=== PATIENT | male | born 1965 | race African-American/Black ===

== ENCOUNTER 2022-07-28 14:03 | Inpatient (IN) | payer OTHER ==
[2022-07-28 14:16] VITALS: BMI 27.9
[2022-07-28] MEDS ORDERED: ACETAMINOPHEN 1000 MG/100 ML BAG IVPB ONE (15:33)
[2022-07-28] MEDS ORDERED: SODIUM CHLORIDE 0.9% 500 ML INFUS.BAG IV ONE ×2 (15:33→17:56)
[2022-07-28] MEDS ORDERED: ACETAMINOPHEN INJECTION 100 ML IVPB ONE (16:15)
[2022-07-28 16:30] LABS: BASO % 0.4 % (0-2.0); EOS % 2.5 % (0-4.5); HEMATOCRIT 36.7 % (35.4-49); LYMPH % 40.6 % (8-40); MCH 26.9 pg (25.7-33.7); MCHC 32.7 g/dl (32.0-35.9); MEAN CELL VOLUME 82.2 fl (80-96); MEAN PLT VOLUME 7.5 fl (7.5-11.1); MONO % 5.6 % (3.8-10.2); NEUT % 50.9 % (42.8-82.8); PLATELET COUNT 304 10^3/uL (134-434); RBC 4.46 M/mm3 (4.00-5.60); WHITE BLOOD COUNT 7.8 K/mm3 (4.0-10.0)
[2022-07-28 16:34] LABS: VENOUS BASE EXCESS -2.7 mmol/L (-2-2); VENOUS O2 SATURATION 52.7 % (70-80); VENOUS PCO2 45.1 mmHg (38-52); VENOUS PH 7.331 (7.310-7.410)
[2022-07-28 16:38] LABS: INR 1.1 (0.83-1.09); PROTHROMBIN TIME (PATIENT) 12.8 SEC (9.7-13.0)
[2022-07-28 16:41] LABS: ACTIVATED PTT 52.4 SECONDS (25.2-36.5)
[2022-07-28 16:53] LABS: CALCIUM 9.2 mg/dL (8.5-10.1)
[2022-07-28 16:54] LABS: ALBUMIN 2.4 g/dl (3.4-5.0); BLOOD UREA NITROGEN 34.6 mg/dL (7-18)
[2022-07-28 16:57] LABS: CREATININE 2.2 mg/dL (0.55-1.3)
[2022-07-28 16:58] LABS: BILIRUBIN,TOTAL 0.4 mg/dL (0.2-1); TOT PROT 6.1 g/dl (6.4-8.2)
[2022-07-28 17:11] LABS: PH,URINE 6.5 (5.0-8.0); URINE APPEARANCE TURBID; URINE BILIRUBIN NEGATIVE (NEGATIVE); URINE COLOR YELLOW; URINE GLUCOSE (UA) NEGATIVE (NEGATIVE); URINE KETONE NEGATIVE (NEGATIVE); URINE LEUK ESTERASE 3+ (NEGATIVE); URINE NITRITE NEGATIVE (NEGATIVE); URINE PROTEIN 3+ (NEGATIVE); URINE UROBILINOGEN 0.2 mg/dL (0.2-1.0)
[2022-07-28 17:50] LABS: EPI CELLS 150.3 /uL (0-25.1); HYALINE CASTS 891.05 /uL (0-3.1); URINE BACTERIA 4341.9 /uL (0-1359); URINE WBC 25405 /uL (0-25.8)
[2022-07-28 17:51] LABS: URINE RBC 170.7 /uL (0-23.9)
[2022-07-28] MEDS ORDERED: CEFTRIAXONE 1,000 MG in DEXTROSE 5%-WATER - 50 ML IVPB ONE (17:54)
[2022-07-28] MEDS ORDERED: CEFTRIAXONE 1 GM/50 ML BAG ONE (18:06)
[2022-07-28] MEDS ORDERED: VANCOMYCIN 1 GM in D5W (PRE-DOCKED) 1,000 MG/250 ML IVPB ONE (20:07)
[2022-07-28] MEDS ORDERED: VANCOMYCIN/WATER FOR INJ (PEG) 1,000 MG/200 ML BAG IVPB ONE (20:14)
[2022-07-28] MEDS ORDERED: ACETAMINOPHEN NR PRN (22:45)
[2022-07-28] MEDS ORDERED: [UNRECOGNIZED DRUG - OTHER] NR PRN (22:45)
[2022-07-28] MEDS ORDERED: TRAMADOL NR PRN (22:45)
[2022-07-28] MEDS ORDERED: traMADol HCL 50 MG TABLET PO ONE (22:55)
[2022-07-28] MEDS ORDERED: traMADol HCL 50 MG TABLET ONE (22:56)
[2022-07-28] MEDS ORDERED: MEROPENEM 1 GM in DEXTROSE 5%-WATER 100 ML IVPB SCH (23:00)
[2022-07-28] MEDS: POLYETHYLENE GLYCOL (HEALTHYLAX) 3350 17 GM PACKET PO SCH (23:13)
[2022-07-29] MEDS ORDERED: MEROPENEM 1 GM VIAL (RESTRICTED TO ID) IVPB ONE (04:05)
[2022-07-29] MEDS: MEROPENEM 1 GM in DEXTROSE 5%-WATER 100 ML IVPB SCH ×2 (04:13→10:51)
[2022-07-29 06:14] LABS: BASO % 0.4 % (0-2.0); EOS % 2.4 % (0-4.5); HEMATOCRIT 32.9 % (35.4-49); HEMOGLOBIN 10.5 GM/dL (11.7-16.9); MCH 26.4 pg (25.7-33.7); MCHC 31.9 g/dl (32.0-35.9); MEAN CELL VOLUME 82.7 fl (80-96); MONO % 4.4 % (3.8-10.2); NEUT % 66.8 % (42.8-82.8); PLATELET COUNT 260 10^3/uL (134-434); RBC 3.98 M/mm3 (4.00-5.60); RDW 18.1 % (11.9-15.9); WHITE BLOOD COUNT 7.6 K/mm3 (4.0-10.0)
[2022-07-29] MEDS ORDERED: POLYETHYLENE GLYCOL (HEALTHYLAX) 3350 17 GM PACKET ONE (06:15)
[2022-07-29] MEDS ORDERED: HEPARIN NA (PORCINE) 5,000 UNITS/ML 1ML VIAL ONE (06:15)
[2022-07-29] MEDS ORDERED: traMADol HCL 50 MG TABLET ONE (06:15)
[2022-07-29] MEDS: POLYETHYLENE GLYCOL (HEALTHYLAX) 3350 17 GM PACKET PO SCH ×3 (06:25→22:31)
[2022-07-29] MEDS: traMADol HCL 50 MG TABLET PO PRN ×3 (06:25→23:20)
[2022-07-29] MEDS: HEPARIN NA (PORCINE) 5,000 UNITS/ML 1ML VIAL SQ SCH ×3 (06:25→22:31)
[2022-07-29 06:35] LABS: BLOOD UREA NITROGEN 32.7 mg/dL (7-18); CALCIUM 8.3 mg/dL (8.5-10.1); MAGNESIUM 1.8 mg/dL (1.8-2.4)
[2022-07-29 06:38] LABS: PHOSPHOROUS 3.4 mg/dL (2.5-4.9)
[2022-07-29 06:40] LABS: BILIRUBIN,TOTAL 0.4 mg/dL (0.2-1); TOT PROT 5.1 g/dl (6.4-8.2)
[2022-07-29] MEDS ORDERED: TAMSULOSIN HCL 0.4 MG CAP ONE (07:18)
[2022-07-29] MEDS: TAMSULOSIN HCL 0.4 MG CAP PO SCH (07:33)
[2022-07-29] MEDS: INSULIN (NOVOLOG) ASPART 100 UNITS/ML 10ML VIAL SQ SCH ×4 (07:33→22:31)
[2022-07-29] MEDS: PANTOPRAZOLE 40 MG TABLET PO SCH (10:52)
[2022-07-29 11:12] VITALS: RESP 18
[2022-07-29] MEDS: SILVER SULFADIAZINE 1% TOP CREAM 400 GM JAR TP SCH (13:19)
[2022-07-29] MEDS: CEFEPIME 1 GM in DEXTROSE 5%-WATER 100 ML IVPB SCH ×2 (15:11→22:40)
[2022-07-29] MEDS ORDERED: PATIENT'S OWN MEDICATION (NON-FORMULARY) (Melatonin [Melatonin] 6 MG) PO SCH (22:00)
[2022-07-29] MEDS: MELATONIN 5 MG, MELATONIN 1 MG PO SCH (22:31)
[2022-07-30] MEDS ORDERED: ACETAMINOPHEN 325 MG TABLET (FP) PO ONE (02:25)
[2022-07-30] MEDS: INSULIN (NOVOLOG) ASPART 100 UNITS/ML 10ML VIAL SQ SCH ×4 (06:21→21:06)
[2022-07-30] MEDS: HEPARIN NA (PORCINE) 5,000 UNITS/ML 1ML VIAL SQ SCH ×3 (06:21→20:59)
[2022-07-30] MEDS: POLYETHYLENE GLYCOL (HEALTHYLAX) 3350 17 GM PACKET PO SCH ×4 (06:21→21:07)
[2022-07-30] MEDS: traMADol HCL 50 MG TABLET PO PRN ×2 (06:21→13:53)
[2022-07-30] MEDS: CEFEPIME 1 GM in DEXTROSE 5%-WATER 100 ML IVPB SCH (09:19)
[2022-07-30] MEDS: TAMSULOSIN HCL 0.4 MG CAP PO SCH (09:19)
[2022-07-30] MEDS: PANTOPRAZOLE 40 MG TABLET PO SCH (09:19)
[2022-07-30] MEDS: SILVER SULFADIAZINE 1% TOP CREAM 400 GM JAR TP SCH (09:19)
[2022-07-30] MEDS: MELATONIN 5 MG, MELATONIN 1 MG PO SCH (20:59)
[2022-07-30] MEDS: SENNOSIDES 8.6MG TABLET (FP) PO SCH ×2 (21:01→21:07)
[2022-07-30] MEDS: CEPHALEXIN MONOHYDRATE 500 MG CAPSULE (UD) PO SCH (22:33)
[2022-07-31] MEDS: POLYETHYLENE GLYCOL (HEALTHYLAX) 3350 17 GM PACKET PO SCH ×2 (05:59→13:54)
[2022-07-31] MEDS: HEPARIN NA (PORCINE) 5,000 UNITS/ML 1ML VIAL SQ SCH ×2 (05:59→13:54)
[2022-07-31] MEDS: traMADol HCL 50 MG TABLET PO PRN ×2 (06:00→13:57)
[2022-07-31] MEDS: INSULIN (NOVOLOG) ASPART 100 UNITS/ML 10ML VIAL SQ SCH ×3 (06:26→17:23)
[2022-07-31] MEDS: PANTOPRAZOLE 40 MG TABLET PO SCH (09:26)
[2022-07-31] MEDS: CEPHALEXIN MONOHYDRATE 500 MG CAPSULE (UD) PO SCH (09:26)
[2022-07-31] MEDS: TAMSULOSIN HCL 0.4 MG CAP PO SCH (09:26)
[2022-07-31] MEDS: SENNOSIDES 8.6MG TABLET (FP) PO SCH (09:27)
[2022-07-31] MEDS: SILVER SULFADIAZINE 1% TOP CREAM 400 GM JAR TP SCH (09:28)
[2022-07-31] MEDS ORDERED: MULTIVITAMINS (DAILY MVI) TABLET (FP) PO SCH (10:00)
[2022-07-31] MEDS ORDERED: ACETAMINOPHEN 325 MG TABLET (FP) PO ONE (12:33)
[2022-07-31 14:48] VITALS: BP 115/77; PULSE 85; TEMP 98.4
== END 2022-07-31 18:34 | DRG 463 ==
LOC: JER 14:03 → JERBED 21:53 → J6S 07-29 08:53
PROVIDERS: ADMIT Internal Medicine; ATTEND Internal Medicine
DX: N39.0 Urinary tract infection, site not specified (principal); E11.69 Type 2 diabetes mellitus with other specified complication; L89.202 Pressure ulcer of unspecified hip, stage 2; M86.60 Other chronic osteomyelitis, unspecified site; N13.30 Unspecified hydronephrosis; L89.322 Pressure ulcer of left buttock, stage 2; Z89.619 Acquired absence of unspecified leg above knee; F17.210 Nicotine dependence, cigarettes, uncomplicated; N40.0 Benign prostatic hyperplasia without lower urinary tract symptoms; B96.20 Unspecified Escherichia coli [E. coli] as the cause of diseases classified elsewhere
CPT/HCPCS: 36415; 74176-TC; 76775-TC; 76937; 80053; 81003; 82550; 82803; 82962; 83036; 83605; 83735; 84100; 84443; 85025; 85610; 85730; 86140; 86850; 86900; 86901; 87040; 87086; 87186; 93005; 93010; 99285-25; C9803-CS; J1644; U0003; U0005

== ENCOUNTER 2022-10-05 18:46 | Inpatient (IN) | payer OTHER ==
[2022-10-05 19:03] VITALS: BMI 28.7
[2022-10-05] MEDS ORDERED: ACETAMINOPHEN 1000 MG/100 ML BAG IVPB ONE (19:29)
[2022-10-05] MEDS ORDERED: ACETAMINOPHEN INJECTION 100 ML IVPB ONE (20:15)
[2022-10-05] MEDS ORDERED: SODIUM CHLORIDE 0.9% 500 ML INFUS.BAG IV ONE (20:42)
[2022-10-05 21:07] LABS: HEMATOCRIT 39.5 % (35.4-49); HEMOGLOBIN 13.1 GM/dL (11.7-16.9); MCH 27.5 pg (25.7-33.7); MCHC 33.2 g/dl (32.0-35.9); MEAN CELL VOLUME 82.8 fl (80-96); MEAN PLT VOLUME 7.8 fl (7.5-11.1); PLATELET COUNT 295 10^3/uL (134-434); RBC 4.77 M/mm3 (4.00-5.60); RDW 17.3 % (11.9-15.9); WHITE BLOOD COUNT 11.3 K/mm3 (4.0-10.0)
[2022-10-05 21:30] LABS: CALCIUM 8.8 mg/dL (8.5-10.1)
[2022-10-05 21:31] LABS: ALBUMIN 2.6 g/dl (3.4-5.0); BLOOD UREA NITROGEN 28.8 mg/dL (7-18); MAGNESIUM 2.1 mg/dL (1.8-2.4)
[2022-10-05 21:34] LABS: CREATININE 1.9 mg/dL (0.55-1.3)
[2022-10-05 21:35] LABS: BILIRUBIN,TOTAL 0.4 mg/dL (0.2-1); TOT PROT 6.6 g/dl (6.4-8.2)
[2022-10-06] MEDS ORDERED: morphine CARPU-JECT 4 MG/1 ML DISP.SYRIN IVPUSH ONE
[2022-10-06] MEDS ORDERED: METOPROLOL TARTRATE 5 MG/5 ML VIAL IVPUSH PRN (00:09)
[2022-10-06] MEDS ORDERED: PANTOPRAZOLE SODIUM 40 MG VIAL IVPUSH ONE (00:10)
[2022-10-06] MEDS ORDERED: LORazepam 2 MG/ML SDV VIAL IVPUSH PRN (00:13)
[2022-10-06] MEDS ORDERED: DEXTROSE 5%-0.45% SALINE 1,000 ML IV SCH ×2 (00:15)
[2022-10-06] MEDS ORDERED: morphine SULFATE 4 MG/ML VIAL ONE (00:21)
[2022-10-06] MEDS: INSULIN SLIDING SCALE (NOVOLOG) 1 VIAL SQ SCH ×2 (01:01→07:45)
[2022-10-06] MEDS ORDERED: HEPARIN NA (PORCINE) 5,000 UNITS/ML 1ML VIAL SQ SCH (06:00)
[2022-10-06] MEDS ORDERED: HEPARIN NA (PORCINE) 5,000 UNITS/ML 1ML VIAL ONE (06:06)
[2022-10-06 06:47] LABS: BASO % 0.3 % (0-2.0); EOS % 1.9 % (0-4.5); HEMATOCRIT 33.8 % (35.4-49); HEMOGLOBIN 11.3 GM/dL (11.7-16.9); LYMPH % 32.4 % (8-40); MCH 27.8 pg (25.7-33.7); MCHC 33.4 g/dl (32.0-35.9); MEAN CELL VOLUME 83.2 fl (80-96); MONO % 8.7 % (3.8-10.2); NEUT % 56.7 % (42.8-82.8); PLATELET COUNT 212 10^3/uL (134-434); RBC 4.06 M/mm3 (4.00-5.60); RDW 16.7 % (11.9-15.9); WHITE BLOOD COUNT 8.2 K/mm3 (4.0-10.0)
[2022-10-06 07:05] LABS: CALCIUM 8.4 mg/dL (8.5-10.1)
[2022-10-06 07:06] LABS: ALBUMIN 2.1 g/dl (3.4-5.0); BLOOD UREA NITROGEN 25.2 mg/dL (7-18)
[2022-10-06 07:09] LABS: CREATININE 1.7 mg/dL (0.55-1.3)
[2022-10-06 07:10] LABS: TOT PROT 5.2 g/dl (6.4-8.2)
[2022-10-06 07:11] LABS: BILIRUBIN,TOTAL 0.4 mg/dL (0.2-1)
[2022-10-06 08:18] LABS: EPI CELLS >36 /uL (0-25.1); HYALINE CASTS 104 /uL (0-3.1); PH,URINE 5.5 (5.0-8.0); URINE APPEARANCE TURBID; URINE BACTERIA 2363 /uL (0-1359); URINE BILIRUBIN NEGATIVE (NEGATIVE); URINE COLOR YELLOW; URINE GLUCOSE (UA) NEGATIVE (NEGATIVE); URINE KETONE NEGATIVE (NEGATIVE); URINE LEUK ESTERASE 3+ (NEGATIVE); URINE NITRITE NEGATIVE (NEGATIVE); URINE PROTEIN 2+ (NEGATIVE); URINE UROBILINOGEN 0.2 mg/dL (0.2-1.0); URINE WBC 30358 /uL (0-25.8)
[2022-10-06] MEDS ORDERED: PANTOPRAZOLE SODIUM 40 MG VIAL IVPUSH SCH (10:00)
[2022-10-06 10:50] LABS: URINE RBC 616.5 /uL (0-23.9); YEAST NO SEEN (NEGATIVE)
[2022-10-06] MEDS ORDERED: Methylnaltrexone Bromide 12 MG/0.6 ML KIT SQ SCH (12:36)
[2022-10-06] MEDS ORDERED: PANTOPRAZOLE SODIUM 40 MG/100 ML BAG IVPB ONE (14:56)
[2022-10-06 17:18] VITALS: BP 112/68; PULSE 74; RESP 16; TEMP 98.9
== END 2022-10-06 07:28 | disposition short-term general hospital (02) | DRG 282 ==
LOC: JER 18:46 → JERBED 10-06 → OBSVTOIN 10-06 00:08
PROVIDERS: ADMIT Internal Medicine; ATTEND Internal Medicine
DX: K86.89 Other specified diseases of pancreas (principal); N17.9 Acute kidney failure, unspecified; N13.30 Unspecified hydronephrosis; E87.5 Hyperkalemia; K80.20 Calculus of gallbladder without cholecystitis without obstruction; K86.1 Other chronic pancreatitis; E11.9 Type 2 diabetes mellitus without complications; I10 Essential (primary) hypertension; I45.10 Unspecified right bundle-branch block; N32.0 Bladder-neck obstruction; Z79.4 Long term (current) use of insulin
CPT/HCPCS: 0241U-QW; 36415; 71045-TC-FY; 74177-TC; 80053; 81003; 82962; 82977; 83605; 83690; 83735; 84484; 85025; 85027; 87086; 87186; 93005; 93010; 99285-25; G0378; J1644; Q9967

== ENCOUNTER 2022-11-23 21:24 | Observation (INO) | payer OTHER ==
[2022-11-23] MEDS ORDERED: SODIUM CHLORIDE 0.9% 1000 ML INFUS.BAG IV ONE (21:53)
[2022-11-23 23:50] LABS: BASO % 0.4 % (0-2.0); HEMATOCRIT 32.2 % (35.4-49); HEMOGLOBIN 10.5 GM/dL (11.7-16.9); LYMPH % 40.4 % (8-40); MCH 27.1 pg (25.7-33.7); MCHC 32.7 g/dl (32.0-35.9); MEAN CELL VOLUME 82.9 fl (80-96); MEAN PLT VOLUME 7.7 fl (7.5-11.1); MONO % 6.9 % (3.8-10.2); NEUT % 49.3 % (42.8-82.8); PLATELET COUNT 156 10^3/uL (134-434); RBC 3.88 M/mm3 (4.00-5.60); RDW 15.8 % (11.9-15.9); WHITE BLOOD COUNT 7.7 K/mm3 (4.0-10.0)
[2022-11-24 00:20] LABS: CALCIUM 8.7 mg/dL (8.5-10.1)
[2022-11-24 00:21] LABS: ALBUMIN 2.3 g/dl (3.4-5.0); BLOOD UREA NITROGEN 50.9 mg/dL (7-18)
[2022-11-24 00:24] LABS: CREATININE 2.2 mg/dL (0.55-1.3)
[2022-11-24 00:26] LABS: BILIRUBIN,TOTAL 0.3 mg/dL (0.2-1); TOT PROT 5.7 g/dl (6.4-8.2)
[2022-11-24] MEDS ORDERED: POLYETHYLENE GLYCOL (HEALTHYLAX) 3350 17 GM PACKET ONE (00:37)
[2022-11-24] MEDS ORDERED: POLYETHYLENE GLYCOL (HEALTHYLAX) 3350 17 GM PACKET PO ONE (01:00)
[2022-11-24] MEDS ORDERED: POLYETHYLENE GLYCOL (HEALTHYLAX) 3350 17 GM PACKET PO SCH (01:00)
[2022-11-24] MEDS ORDERED: traMADol HCL 50 MG TABLET PO PRN (03:01)
[2022-11-24] MEDS ORDERED: traMADol HCL 50 MG TABLET ONE (03:33)
[2022-11-24] MEDS: traMADol HCL 50 MG TABLET PO PRN ×3 (03:37→19:07)
[2022-11-24] MEDS: POLYETHYLENE GLYCOL (HEALTHYLAX) 3350 17 GM PACKET PO SCH ×3 (06:21→21:27)
[2022-11-24] MEDS: SEVELAMER CARBONATE 800 MG TAB (FP) PO SCH ×4 (08:50→17:47)
[2022-11-24] MEDS: TAMSULOSIN HCL 0.4 MG CAP PO SCH ×2 (08:50→08:53)
[2022-11-24] MEDS: FLUoxetine HCL 10 MG CAPSULE PO SCH (10:33)
[2022-11-24] MEDS: AMIODARONE HCL 200 MG TABLET PO SCH (10:33)
[2022-11-24] MEDS: METOPROLOL TARTRATE 25 MG TABLET (FP) PO SCH ×2 (10:34→21:26)
[2022-11-24] MEDS: DOCUSATE SODIUM 100 MG CAPSULE (FP) PO SCH ×2 (10:34→21:25)
[2022-11-24] MEDS: APIXABAN 5 MG TABLET PO SCH ×2 (10:34→21:26)
[2022-11-24] MEDS: PANTOPRAZOLE 40 MG TABLET PO SCH (10:34)
[2022-11-24] MEDS ORDERED: INSULIN (NOVOLOG) ASPART 100 UNITS/ML 10ML VIAL SQ ONE (11:36)
[2022-11-24] MEDS ORDERED: INSULIN (NOVOLOG) ASPART 100 UNITS/ML 10ML VIAL ONE ×2 (11:55→16:45)
[2022-11-24] MEDS ORDERED: INSULIN REGULAR HUMAN 100 UNITS/ML *VIAL IVPUSH ONE (12:00)
[2022-11-24] MEDS ORDERED: INSULIN REGULAR HUMAN 100 UNITS/ML *VIAL SQ ONE (12:30)
[2022-11-24] MEDS: INSULIN SLIDING SCALE (NOVOLOG) 1 VIAL SQ SCH (16:41)
[2022-11-24] MEDS: INSULIN (LEVEMIR) 100 UNITS/ML UNITS SQ SCH (16:47)
[2022-11-24] MEDS: SODIUM BICARBONATE 650 MG TABLET PO SCH (21:26)
[2022-11-24] MEDS: ROSUVASTATIN CA 20 MG TABLET PO SCH (21:26)
[2022-11-24] MEDS ORDERED: INSULIN (LEVEMIR) 100 UNITS/ML UNITS SQ SCH (22:00)
[2022-11-24] MEDS ORDERED: QUEtiapine FUMARATE 50 MG TABLET PO SCH (22:00)
[2022-11-25] MEDS: INSULIN (LEVEMIR) 100 UNITS/ML UNITS SQ SCH ×6 (01:35→21:58)
[2022-11-25] MEDS: traMADol HCL 50 MG TABLET PO PRN ×3 (02:50→18:35)
[2022-11-25] MEDS: POLYETHYLENE GLYCOL (HEALTHYLAX) 3350 17 GM PACKET PO SCH ×3 (06:46→21:18)
[2022-11-25] MEDS: INSULIN SLIDING SCALE (NOVOLOG) 1 VIAL SQ SCH ×3 (07:10→16:33)
[2022-11-25] MEDS: TAMSULOSIN HCL 0.4 MG CAP PO SCH (08:26)
[2022-11-25] MEDS: SEVELAMER CARBONATE 800 MG TAB (FP) PO SCH ×3 (08:26→17:29)
[2022-11-25] MEDS: METOPROLOL TARTRATE 25 MG TABLET (FP) PO SCH ×2 (10:30→21:17)
[2022-11-25] MEDS: FLUoxetine HCL 10 MG CAPSULE PO SCH (10:30)
[2022-11-25] MEDS: AMIODARONE HCL 200 MG TABLET PO SCH (10:31)
[2022-11-25] MEDS: DOCUSATE SODIUM 100 MG CAPSULE (FP) PO SCH ×2 (10:31→21:16)
[2022-11-25] MEDS: APIXABAN 5 MG TABLET PO SCH ×2 (10:31→21:17)
[2022-11-25] MEDS: SODIUM BICARBONATE 650 MG TABLET PO SCH ×2 (10:31→21:17)
[2022-11-25] MEDS: PANTOPRAZOLE 40 MG TABLET PO SCH (10:31)
[2022-11-25] MEDS ORDERED: INSULIN (NOVOLOG) ASPART 100 UNITS/ML 10ML VIAL ONE ×2 (11:13→16:38)
[2022-11-25 12:28] VITALS: BMI 29.2
[2022-11-25] MEDS: ROSUVASTATIN CA 20 MG TABLET PO SCH (21:16)
[2022-11-25] MEDS ORDERED: MELATONIN 5 MG TABLETS PO SCH (22:00)
[2022-11-26] MEDS: traMADol HCL 50 MG TABLET PO PRN ×3 (02:54→18:41)
[2022-11-26] MEDS: POLYETHYLENE GLYCOL (HEALTHYLAX) 3350 17 GM PACKET PO SCH ×2 (05:41→13:09)
[2022-11-26] MEDS: INSULIN SLIDING SCALE (NOVOLOG) 1 VIAL SQ SCH ×3 (06:09→16:36)
[2022-11-26] MEDS: INSULIN (LEVEMIR) 100 UNITS/ML UNITS SQ SCH (08:13)
[2022-11-26] MEDS: SEVELAMER CARBONATE 800 MG TAB (FP) PO SCH ×3 (08:15→17:35)
[2022-11-26] MEDS: TAMSULOSIN HCL 0.4 MG CAP PO SCH (08:22)
[2022-11-26 09:17] VITALS: RESP 18
[2022-11-26] MEDS ORDERED: MULTIVITAMINS (DAILY MVI) TABLET (FP) PO SCH (10:00)
[2022-11-26] MEDS ORDERED: ARIPiprazole 10 MG TABLET PO SCH (10:00)
[2022-11-26] MEDS ORDERED: ASCORBIC ACID 500 MG TABLET (FP) PO SCH (10:00)
[2022-11-26] MEDS ORDERED: ZINC SULFATE 220 MG CAPSULE (FP) PO SCH (10:00)
[2022-11-26] MEDS: DOCUSATE SODIUM 100 MG CAPSULE (FP) PO SCH (10:13)
[2022-11-26] MEDS: APIXABAN 5 MG TABLET PO SCH (10:13)
[2022-11-26] MEDS: AMIODARONE HCL 200 MG TABLET PO SCH (10:13)
[2022-11-26] MEDS: METOPROLOL TARTRATE 25 MG TABLET (FP) PO SCH (10:14)
[2022-11-26] MEDS: PANTOPRAZOLE 40 MG TABLET PO SCH (10:14)
[2022-11-26] MEDS: SODIUM BICARBONATE 650 MG TABLET PO SCH (10:15)
[2022-11-26 22:03] VITALS: BP 131/81; PULSE 68; TEMP 98.4
== END 2022-11-27 07:03 | disposition short-term general hospital (02) ==
LOC: JER 21:24 → JERBED 11-24 01:12 → J7W 11-24 05:16
PROVIDERS: ADMIT Internal Medicine; ATTEND Internal Medicine
PROC: 3E013VG Introduction of Insulin into Subcutaneous Tissue, Percutaneous Approach (ICD-10-PCS; principal; 2022-11-24)
DX: K59.00 Constipation, unspecified (principal); I48.91 Unspecified atrial fibrillation; N17.9 Acute kidney failure, unspecified; E11.22 Type 2 diabetes mellitus with diabetic chronic kidney disease; I12.9 Hypertensive chronic kidney disease with stage 1 through stage 4 chronic kidney disease, or unspecified chronic kidney disease; N18.9 Chronic kidney disease, unspecified; N40.0 Benign prostatic hyperplasia without lower urinary tract symptoms; F25.9 Schizoaffective disorder, unspecified; Z79.01 Long term (current) use of anticoagulants; Z88.0 Allergy status to penicillin; Z91.018 Allergy to other foods; Z89.611 Acquired absence of right leg above knee; Z89.512 Acquired absence of left leg below knee; N13.30 Unspecified hydronephrosis; D64.9 Anemia, unspecified; M41.9 Scoliosis, unspecified; Z72.0 Tobacco use; I25.10 Atherosclerotic heart disease of native coronary artery without angina pectoris; I11.9 Hypertensive heart disease without heart failure
CPT/HCPCS: 36415; 74190-TC-FY; 80053; 82962; 83690; 85025; 87635; 93005; 93010; 96372; 99285-25; G0378

== ENCOUNTER 2022-11-27 18:45 | Inpatient (IN) | payer OTHER ==
[2022-11-27] MEDS ORDERED: HALOPERIDOL LACTATE 5 MG/ML IM ONE ×2 (19:10→22:02)
[2022-11-27] MEDS ORDERED: INSULIN REGULAR HUMAN 100 UNITS/ML *VIAL SQ ONE (19:35)
[2022-11-27 19:54] LABS: BASO % 0.4 % (0-2.0); EOS % 2.9 % (0-4.5); HEMATOCRIT 34.4 % (35.4-49); HEMOGLOBIN 10.9 GM/dL (11.7-16.9); MCH 27.2 pg (25.7-33.7); MCHC 31.7 g/dl (32.0-35.9); MEAN CELL VOLUME 85.7 fl (80-96); MEAN PLT VOLUME 8.4 fl (7.5-11.1); MONO % 6.9 % (3.8-10.2); NEUT % 64.8 % (42.8-82.8); PLATELET COUNT 189 10^3/uL (134-434); RBC 4.02 M/mm3 (4.00-5.60); RDW 15.5 % (11.9-15.9); WHITE BLOOD COUNT 6.9 K/mm3 (4.0-10.0)
[2022-11-27 19:58] LABS: VENOUS BASE EXCESS -7.6 mmol/L (-2-2); VENOUS O2 SATURATION 33.6 % (70-80); VENOUS PCO2 46.8 mmHg (38-52); VENOUS PH 7.24 (7.310-7.410)
[2022-11-27 20:02] LABS: INR 1.68 (0.83-1.09); PROTHROMBIN TIME (PATIENT) 19.4 SEC (9.7-13.0)
[2022-11-27 20:04] LABS: ACTIVATED PTT 48.1 SECONDS (25.2-36.5)
[2022-11-27 20:12] LABS: CHLORIDE 106 mmol/L (98-107); POTASSIUM 5.3 mmol/L (3.5-5.1); SODIUM 137 mmol/L (136-145)
[2022-11-27 20:14] LABS: CALCIUM 8.7 mg/dL (8.5-10.1)
[2022-11-27 20:16] LABS: ALBUMIN 2.6 g/dl (3.4-5.0); ANION GAP 9 MMOL/L (8-16); BLOOD UREA NITROGEN 45.1 mg/dL (7-18); CO2 22 mmol/L (21-32); LIPASE 45 U/L (73-393)
[2022-11-27 20:18] LABS: CREATININE 2.2 mg/dL (0.55-1.3); SGOT/AST 32 U/L (15-37); SGPT/ALT 38 U/L (13-61)
[2022-11-27 20:20] LABS: ALK PHOS 267 U/L (45-117); BILIRUBIN,TOTAL 0.4 mg/dL (0.2-1); TOT PROT 6.2 g/dl (6.4-8.2)
[2022-11-27 20:35] LABS: LACTIC ACID 2.2 mmol/L (0.4-2.0)
[2022-11-27] MEDS ORDERED: SODIUM CHLORIDE 0.9% 500 ML INFUS.BAG IV ONE (20:36)
[2022-11-27 21:07] LABS: GLUCOSE,RANDOM 412 mg/dL (74-106)
[2022-11-27 21:25] LABS: EPI CELLS 16 /uL (0-25.1); HYALINE CASTS 0 /uL (0-3.1); PH,URINE 5.5 (5.0-8.0); URINE APPEARANCE TURBID; URINE BACTERIA >9,000 /uL (0-1359); URINE BILIRUBIN NEGATIVE (NEGATIVE); URINE COLOR YELLOW; URINE GLUCOSE (UA) TRACE (NEGATIVE); URINE KETONE NEGATIVE (NEGATIVE); URINE LEUK ESTERASE 3+ (NEGATIVE); URINE NITRITE NEGATIVE (NEGATIVE); URINE PROTEIN 3+ (NEGATIVE); URINE RBC 452 /uL (0-23.9); URINE UROBILINOGEN 0.2 mg/dL (0.2-1.0); URINE WBC 13650 /uL (0-25.8)
[2022-11-27] MEDS ORDERED: HALOPERIDOL 5 MG TABLET PO ONE (21:28)
[2022-11-27] MEDS ORDERED: CEPHALEXIN 250 MG/5 ML ORAL SUSPENSION PO ONE (22:23)
[2022-11-27] MEDS ORDERED: CEPHALEXIN MONOHYDRATE 500 MG CAPSULE (UD) ONE (22:32)
[2022-11-27] MEDS ORDERED: traMADol HCL 50 MG TABLET PO PRN (23:07)
[2022-11-28 00:17] LABS: IRON SERUM 24 ug/dL (50-175); TOTAL IRON BINDING CAPACITY 224 ug/dL (250-450)
[2022-11-28 00:20] LABS: RETICULOCYTES 1.63 % (0.5-1.5)
[2022-11-28 00:26] LABS: COCAINE, UR NEGATIVE (NEGATIVE); METHADONE, UR NEGATIVE (NEGATIVE); OPIATES, URI NEGATIVE (NEGATIVE); PHENCYCLIDINE,URINE NEGATIVE (NEGATIVE); URINE AMPHETAMINES NEGATIVE (NEGATIVE); URINE BARBITURATES NEGATIVE (NEGATIVE); URINE BENZODIAZEPINES NEGATIVE (NEGATIVE)
[2022-11-28 00:43] LABS: LDH 175 U/L (87-246)
[2022-11-28] MEDS ORDERED: HALOPERIDOL LACTATE 5 MG/ML IM PRN (00:49)
[2022-11-28] MEDS: SODIUM CHLORIDE 1,000 ML IV SCH (01:48)
[2022-11-28] MEDS: traMADol HCL 50 MG TABLET PO PRN ×3 (03:58→20:05)
[2022-11-28] MEDS ORDERED: HEPARIN NA (PORCINE) 5,000 UNITS/ML 1ML VIAL SQ SCH (06:00)
[2022-11-28] MEDS: POLYETHYLENE GLYCOL (HEALTHYLAX) 3350 17 GM PACKET PO SCH ×4 (06:30→21:45)
[2022-11-28] MEDS: LACTULOSE 20 GM/30 ML UDC (FOR ORAL USE ONLY) PO SCH ×3 (06:50→21:46)
[2022-11-28] MEDS ORDERED: INSULIN (NOVOLOG) ASPART 100 UNITS/ML 10ML VIAL ONE ×3 (07:34→21:24)
[2022-11-28] MEDS: INSULIN SLIDING SCALE (NOVOLOG) 1 VIAL SQ SCH ×4 (07:40→21:41)
[2022-11-28] MEDS ORDERED: MINERAL OIL ENEMA 133 ML ENEMA RC ONE (08:00)
[2022-11-28] MEDS ORDERED: TAMSULOSIN HCL 0.4 MG CAP PO SCH (08:30)
[2022-11-28 08:55] VITALS: BMI 29.2
[2022-11-28] MEDS: TAMSULOSIN HCL 0.4 MG CAP PO SCH ×2 (08:55→21:30)
[2022-11-28] MEDS: SEVELAMER CARBONATE 800 MG TAB (FP) PO SCH ×3 (08:55→18:17)
[2022-11-28] MEDS ORDERED: HYDROCORTISONE 0.5% TOPICAL CREAM 30 GM TUBE TP PRN (09:30)
[2022-11-28] MEDS ORDERED: CEFTRIAXONE 1,000 MG in DEXTROSE 5%-WATER - 50 ML IVPB SCH (10:00)
[2022-11-28] MEDS ORDERED: FLUoxetine HCL 10 MG CAPSULE PO SCH (10:00)
[2022-11-28] MEDS ORDERED: LACTULOSE 20 GM/30 ML UDC (FOR ORAL USE ONLY) PO SCH ×2 (10:00)
[2022-11-28] MEDS: APIXABAN 5 MG TABLET PO SCH ×2 (10:47→21:30)
[2022-11-28] MEDS: ARIPiprazole 10 MG TABLET PO SCH (10:47)
[2022-11-28] MEDS: METOPROLOL TARTRATE 25 MG TABLET (FP) PO SCH ×2 (10:47→21:30)
[2022-11-28] MEDS: PANTOPRAZOLE 40 MG TABLET PO SCH (10:47)
[2022-11-28] MEDS: SODIUM BICARBONATE 650 MG TABLET PO SCH ×2 (10:47→21:30)
[2022-11-28] MEDS: FINASTERIDE 5 MG TABLET (FP) PO SCH (10:47)
[2022-11-28] MEDS: AMIODARONE HCL 200 MG TABLET PO SCH (10:47)
[2022-11-28] MEDS: DOCUSATE SODIUM 100 MG CAPSULE (FP) PO SCH ×2 (10:48→21:46)
[2022-11-28] MEDS: CEFTRIAXONE 1 GM in DEXTROSE 5%-WATER - 50 ML IVPB SCH (12:41)
[2022-11-28] MEDS ORDERED: QUEtiapine FUMARATE 50 MG TABLET PO SCH (22:00)
[2022-11-28] MEDS ORDERED: ROSUVASTATIN CA 20 MG TABLET PO SCH (22:00)
[2022-11-28] MEDS ORDERED: INSULIN (LEVEMIR) 100 UNITS/ML UNITS SQ SCH (22:00)
[2022-11-29] MEDS: SODIUM CHLORIDE 1,000 ML IV SCH ×3 (00:59→23:36)
[2022-11-29] MEDS: traMADol HCL 50 MG TABLET PO PRN ×3 (04:17→23:27)
[2022-11-29] MEDS: LACTULOSE 20 GM/30 ML UDC (FOR ORAL USE ONLY) PO SCH ×3 (07:21→23:35)
[2022-11-29] MEDS: POLYETHYLENE GLYCOL (HEALTHYLAX) 3350 17 GM PACKET PO SCH ×3 (07:21→23:38)
[2022-11-29] MEDS: INSULIN SLIDING SCALE (NOVOLOG) 1 VIAL SQ SCH ×4 (07:22→23:09)
[2022-11-29] MEDS: SEVELAMER CARBONATE 800 MG TAB (FP) PO SCH ×3 (10:04→19:42)
[2022-11-29] MEDS: TAMSULOSIN HCL 0.4 MG CAP PO SCH ×2 (10:05→23:34)
[2022-11-29] MEDS ORDERED: BENZOIN/ALOE VERA/STORAX/TOLU 58 ML BOTTLE ONE (10:57)
[2022-11-29] MEDS ORDERED: cefTRIAXone SODIUM 1 GM VIAL IVPB ONE (11:00)
[2022-11-29] MEDS ORDERED: ROCURONIUM BROMIDE 50 MG/5 ML SYRINGE ONE (11:21)
[2022-11-29] MEDS ORDERED: PROPOFOL 20 ML ONE (11:21)
[2022-11-29] MEDS ORDERED: SODIUM CHLORIDE 0.45% 1,000 ML IV SCH (11:30)
[2022-11-29] MEDS ORDERED: SUGAMMADEX SODIUM 200 MG/2 ML VIAL ONE (11:41)
[2022-11-29] MEDS ORDERED: ONDANSETRON 4 MG/2 ML VIAL IVPUSH PRN ×2 (11:57→12:28)
[2022-11-29] MEDS ORDERED: LACTATED RINGERS SOLUTION 1,000 ML IV SCH ×2 (12:00→12:28)
[2022-11-29] MEDS ORDERED: HYDROCORTISONE 0.5% TOPICAL CREAM 30 GM TUBE TP PRN (12:28)
[2022-11-29] MEDS: ARIPiprazole 10 MG TABLET PO SCH (14:37)
[2022-11-29] MEDS: DOCUSATE SODIUM 100 MG CAPSULE (FP) PO SCH ×2 (14:37→23:34)
[2022-11-29] MEDS: FINASTERIDE 5 MG TABLET (FP) PO SCH (14:38)
[2022-11-29] MEDS: APIXABAN 5 MG TABLET PO SCH ×2 (14:38→23:34)
[2022-11-29] MEDS: AMIODARONE HCL 200 MG TABLET PO SCH (14:38)
[2022-11-29] MEDS: METOPROLOL TARTRATE 25 MG TABLET (FP) PO SCH ×2 (14:38→23:34)
[2022-11-29] MEDS: PANTOPRAZOLE 40 MG TABLET PO SCH (14:41)
[2022-11-29] MEDS: SODIUM BICARBONATE 650 MG TABLET PO SCH ×2 (14:41→23:34)
[2022-11-29] MEDS: CEFTRIAXONE 1 GM in DEXTROSE 5%-WATER - 50 ML IVPB SCH (14:41)
[2022-11-29] MEDS ORDERED: morphine SULFATE IMMEDIATE RELEASE 30 MG TAB PO PRN (16:13)
[2022-11-29] MEDS: AMINO ACIDS/PROTEIN HYDROLYS 30 ML LIQUID.PKT PO SCH (17:37)
[2022-11-29] MEDS ORDERED: oxyCODONE HCL 5 MG TABLET PO ONE (18:33)
[2022-11-29] MEDS ORDERED: INSULIN (LEVEMIR) 100 UNITS/ML UNITS SQ SCH (22:00)
[2022-11-29] MEDS: ROSUVASTATIN CA 20 MG TABLET PO SCH (23:33)
[2022-11-30] MEDS: LACTULOSE 20 GM/30 ML UDC (FOR ORAL USE ONLY) PO SCH ×4 (00:48→22:45)
[2022-11-30] MEDS: SODIUM CHLORIDE 1,000 ML IV SCH ×3 (01:22→15:25)
[2022-11-30] MEDS: POLYETHYLENE GLYCOL (HEALTHYLAX) 3350 17 GM PACKET PO SCH ×3 (06:03→22:46)
[2022-11-30] MEDS: INSULIN SLIDING SCALE (NOVOLOG) 1 VIAL SQ SCH ×4 (08:08→23:09)
[2022-11-30] MEDS: SEVELAMER CARBONATE 800 MG TAB (FP) PO SCH ×3 (10:01→17:34)
[2022-11-30] MEDS: AMINO ACIDS/PROTEIN HYDROLYS 30 ML LIQUID.PKT PO SCH ×2 (10:01→17:34)
[2022-11-30] MEDS: AMIODARONE HCL 200 MG TABLET PO SCH (10:01)
[2022-11-30] MEDS: DOCUSATE SODIUM 100 MG CAPSULE (FP) PO SCH ×2 (10:02→22:46)
[2022-11-30] MEDS: ARIPiprazole 10 MG TABLET PO SCH (10:02)
[2022-11-30] MEDS: ASCORBIC ACID 500 MG TABLET (FP) PO SCH (10:02)
[2022-11-30] MEDS: CEFTRIAXONE 1 GM in DEXTROSE 5%-WATER - 50 ML IVPB SCH (10:03)
[2022-11-30] MEDS: TAMSULOSIN HCL 0.4 MG CAP PO SCH ×2 (10:03→22:26)
[2022-11-30] MEDS: APIXABAN 5 MG TABLET PO SCH (10:03)
[2022-11-30] MEDS: FINASTERIDE 5 MG TABLET (FP) PO SCH (10:03)
[2022-11-30] MEDS: PANTOPRAZOLE 40 MG TABLET PO SCH (10:03)
[2022-11-30] MEDS: SODIUM BICARBONATE 650 MG TABLET PO SCH ×2 (10:03→22:26)
[2022-11-30] MEDS: METOPROLOL TARTRATE 25 MG TABLET (FP) PO SCH ×2 (11:46→22:26)
[2022-11-30] MEDS ORDERED: INSULIN (NOVOLOG) ASPART 100 UNITS/ML 10ML VIAL ONE ×2 (12:06→23:05)
[2022-11-30] MEDS: morphine SULFATE IMMEDIATE RELEASE 30 MG TAB PO PRN ×3 (14:01→22:31)
[2022-11-30] MEDS: traMADol HCL 50 MG TABLET PO PRN (20:41)
[2022-11-30] MEDS: SODIUM CHLORIDE 0.45% 1,000 ML IV SCH (20:42)
[2022-11-30] MEDS: ROSUVASTATIN CA 20 MG TABLET PO SCH (22:25)
[2022-11-30] MEDS: SENNOSIDES 8.8 MG/5 ML SYRUP PO SCH (22:46)
[2022-11-30] MEDS: INSULIN (LEVEMIR) 100 UNITS/ML UNITS SQ SCH (23:09)
[2022-12-01] MEDS: SODIUM CHLORIDE 1,000 ML IV SCH ×2 (02:00→16:07)
[2022-12-01] MEDS: morphine SULFATE IMMEDIATE RELEASE 30 MG TAB PO PRN ×2 (03:05→21:33)
[2022-12-01] MEDS: LACTULOSE 20 GM/30 ML UDC (FOR ORAL USE ONLY) PO SCH ×3 (06:03→21:25)
[2022-12-01] MEDS: POLYETHYLENE GLYCOL (HEALTHYLAX) 3350 17 GM PACKET PO SCH ×3 (06:03→21:26)
[2022-12-01] MEDS: INSULIN SLIDING SCALE (NOVOLOG) 1 VIAL SQ SCH ×4 (07:55→21:39)
[2022-12-01] MEDS: AMINO ACIDS/PROTEIN HYDROLYS 30 ML LIQUID.PKT PO SCH ×2 (08:01→17:08)
[2022-12-01] MEDS: AMIODARONE HCL 200 MG TABLET PO SCH (09:48)
[2022-12-01] MEDS: SODIUM BICARBONATE 650 MG TABLET PO SCH ×2 (09:48→21:26)
[2022-12-01] MEDS: SEVELAMER CARBONATE 800 MG TAB (FP) PO SCH ×3 (09:49→17:08)
[2022-12-01] MEDS: PANTOPRAZOLE 40 MG TABLET PO SCH (09:49)
[2022-12-01] MEDS: ASCORBIC ACID 500 MG TABLET (FP) PO SCH (09:49)
[2022-12-01] MEDS: TAMSULOSIN HCL 0.4 MG CAP PO SCH ×2 (09:49→21:26)
[2022-12-01] MEDS: ARIPiprazole 10 MG TABLET PO SCH (09:49)
[2022-12-01] MEDS: FINASTERIDE 5 MG TABLET (FP) PO SCH (09:49)
[2022-12-01] MEDS: DOCUSATE SODIUM 100 MG CAPSULE (FP) PO SCH ×2 (09:49→21:25)
[2022-12-01] MEDS: CEFTRIAXONE 1 GM in DEXTROSE 5%-WATER - 50 ML IVPB SCH (09:50)
[2022-12-01] MEDS: METOPROLOL TARTRATE 25 MG TABLET (FP) PO SCH ×2 (11:09→21:26)
[2022-12-01 12:52] LABS: BASO % 0.1 % (0-2.0); EOS % 1.1 % (0-4.5); HEMATOCRIT 29.1 % (35.4-49); HEMOGLOBIN 9.1 GM/dL (11.7-16.9); LYMPH % 13.9 % (8-40); MCH 26.4 pg (25.7-33.7); MCHC 31.2 g/dl (32.0-35.9); MEAN CELL VOLUME 84.6 fl (80-96); MEAN PLT VOLUME 8.4 fl (7.5-11.1); NEUT % 75.9 % (42.8-82.8); PLATELET COUNT 146 10^3/uL (134-434); RBC 3.45 M/mm3 (4.00-5.60); WHITE BLOOD COUNT 11.3 K/mm3 (4.0-10.0)
[2022-12-01 13:12] LABS: INR 1.98 (0.83-1.09); PROTHROMBIN TIME (PATIENT) 22.8 SEC (9.7-13.0)
[2022-12-01 13:17] LABS: POTASSIUM 4.5 mmol/L (3.5-5.1)
[2022-12-01 13:19] LABS: CALCIUM 8.1 mg/dL (8.5-10.1)
[2022-12-01 13:20] LABS: BLOOD UREA NITROGEN 32.8 mg/dL (7-18); MAGNESIUM 1.5 mg/dL (1.8-2.4)
[2022-12-01 13:23] LABS: CREATININE 2.4 mg/dL (0.55-1.3)
[2022-12-01 13:24] LABS: TOT PROT 4.6 g/dl (6.4-8.2)
[2022-12-01 13:25] LABS: BILIRUBIN,TOTAL 0.2 mg/dL (0.2-1)
[2022-12-01 13:44] LABS: ALBUMIN 1.8 g/dl (3.4-5.0)
[2022-12-01] MEDS: ROSUVASTATIN CA 20 MG TABLET PO SCH (21:26)
[2022-12-01] MEDS: SENNOSIDES 8.8 MG/5 ML SYRUP PO SCH (21:40)
[2022-12-02] MEDS: morphine SULFATE IMMEDIATE RELEASE 30 MG TAB PO PRN ×4 (01:24→19:04)
[2022-12-02] MEDS: POLYETHYLENE GLYCOL (HEALTHYLAX) 3350 17 GM PACKET PO SCH ×3 (06:46→21:26)
[2022-12-02] MEDS: LACTULOSE 20 GM/30 ML UDC (FOR ORAL USE ONLY) PO SCH ×3 (06:46→21:26)
[2022-12-02] MEDS: INSULIN SLIDING SCALE (NOVOLOG) 1 VIAL SQ SCH ×4 (06:47→21:26)
[2022-12-02] MEDS ORDERED: PHYTONADIONE 5 MG TABLET PO ONE (08:30)
[2022-12-02] MEDS: METOPROLOL TARTRATE 25 MG TABLET (FP) PO SCH ×2 (09:24→21:25)
[2022-12-02] MEDS: CEFTRIAXONE 1 GM in DEXTROSE 5%-WATER - 50 ML IVPB SCH (09:51)
[2022-12-02] MEDS: SEVELAMER CARBONATE 800 MG TAB (FP) PO SCH ×3 (09:53→17:25)
[2022-12-02] MEDS: ARIPiprazole 10 MG TABLET PO SCH (09:53)
[2022-12-02] MEDS: AMINO ACIDS/PROTEIN HYDROLYS 30 ML LIQUID.PKT PO SCH ×2 (09:53→17:23)
[2022-12-02] MEDS: TAMSULOSIN HCL 0.4 MG CAP PO SCH ×2 (09:53→21:26)
[2022-12-02] MEDS: FINASTERIDE 5 MG TABLET (FP) PO SCH (09:53)
[2022-12-02] MEDS: DOCUSATE SODIUM 100 MG CAPSULE (FP) PO SCH ×2 (09:53→21:26)
[2022-12-02] MEDS: ASCORBIC ACID 500 MG TABLET (FP) PO SCH (09:53)
[2022-12-02] MEDS: SODIUM BICARBONATE 650 MG TABLET PO SCH ×2 (09:53→21:25)
[2022-12-02] MEDS: PANTOPRAZOLE 40 MG TABLET PO SCH (09:54)
[2022-12-02] MEDS: AMIODARONE HCL 200 MG TABLET PO SCH (09:54)
[2022-12-02 11:50] LABS: BASO % 0.2 % (0-2.0); EOS % 1.3 % (0-4.5); HEMATOCRIT 25.7 % (35.4-49); HEMOGLOBIN 8.3 GM/dL (11.7-16.9); LYMPH % 11.9 % (8-40); MCH 26.7 pg (25.7-33.7); MCHC 32.2 g/dl (32.0-35.9); MEAN CELL VOLUME 82.9 fl (80-96); MEAN PLT VOLUME 8.1 fl (7.5-11.1); MONO % 10.4 % (3.8-10.2); NEUT % 76.2 % (42.8-82.8); PLATELET COUNT 134 10^3/uL (134-434); RDW 14.9 % (11.9-15.9); WHITE BLOOD COUNT 9.9 K/mm3 (4.0-10.0)
[2022-12-02 12:01] LABS: POTASSIUM 4.6 mmol/L (3.5-5.1)
[2022-12-02 12:04] LABS: ALBUMIN 1.6 g/dl (3.4-5.0); BLOOD UREA NITROGEN 33.6 mg/dL (7-18); MAGNESIUM 1.5 mg/dL (1.8-2.4)
[2022-12-02 12:07] LABS: CREATININE 2.2 mg/dL (0.55-1.3)
[2022-12-02 12:08] LABS: BILIRUBIN,TOTAL 0.4 mg/dL (0.2-1); TOT PROT 4.2 g/dl (6.4-8.2)
[2022-12-02 12:27] LABS: INR 1.8 (0.83-1.09); PROTHROMBIN TIME (PATIENT) 20.8 SEC (9.7-13.0)
[2022-12-02] MEDS ORDERED: INSULIN (NOVOLOG) ASPART 100 UNITS/ML 10ML VIAL ONE ×2 (17:24→21:09)
[2022-12-02] MEDS: ROSUVASTATIN CA 20 MG TABLET PO SCH (21:25)
[2022-12-02] MEDS: MAGNESIUM OXIDE 400 MG TABLET (FP) PO SCH (21:25)
[2022-12-02] MEDS: SENNOSIDES 8.8 MG/5 ML SYRUP PO SCH (23:07)
[2022-12-03] MEDS: morphine SULFATE IMMEDIATE RELEASE 30 MG TAB PO PRN ×4 (04:18→21:33)
[2022-12-03] MEDS: LACTULOSE 20 GM/30 ML UDC (FOR ORAL USE ONLY) PO SCH ×3 (05:59→21:32)
[2022-12-03] MEDS: INSULIN SLIDING SCALE (NOVOLOG) 1 VIAL SQ SCH ×5 (06:01→22:20)
[2022-12-03] MEDS: POLYETHYLENE GLYCOL (HEALTHYLAX) 3350 17 GM PACKET PO SCH ×3 (06:01→21:33)
[2022-12-03] MEDS: TAMSULOSIN HCL 0.4 MG CAP PO SCH ×2 (09:28→21:34)
[2022-12-03] MEDS: ARIPiprazole 10 MG TABLET PO SCH (09:28)
[2022-12-03] MEDS: FINASTERIDE 5 MG TABLET (FP) PO SCH (09:28)
[2022-12-03] MEDS: ASCORBIC ACID 500 MG TABLET (FP) PO SCH (09:28)
[2022-12-03] MEDS: CEFTRIAXONE 1 GM in DEXTROSE 5%-WATER - 50 ML IVPB SCH (09:28)
[2022-12-03] MEDS: PANTOPRAZOLE 40 MG TABLET PO SCH (09:28)
[2022-12-03] MEDS: MAGNESIUM OXIDE 400 MG TABLET (FP) PO SCH ×3 (09:28→21:34)
[2022-12-03] MEDS: AMIODARONE HCL 200 MG TABLET PO SCH (09:29)
[2022-12-03] MEDS: METOPROLOL TARTRATE 25 MG TABLET (FP) PO SCH ×2 (09:39→21:34)
[2022-12-03 10:11] LABS: BASO % 0.3 % (0-2.0); EOS % 2.1 % (0-4.5); HEMATOCRIT 25.5 % (35.4-49); HEMOGLOBIN 8.1 GM/dL (11.7-16.9); LYMPH % 19.2 % (8-40); MCH 26.5 pg (25.7-33.7); MCHC 31.6 g/dl (32.0-35.9); MEAN CELL VOLUME 83.9 fl (80-96); MEAN PLT VOLUME 8.4 fl (7.5-11.1); NEUT % 68.4 % (42.8-82.8); PLATELET COUNT 144 10^3/uL (134-434); RBC 3.04 M/mm3 (4.00-5.60); WHITE BLOOD COUNT 7.3 K/mm3 (4.0-10.0)
[2022-12-03 10:20] LABS: INR 1.36 (0.83-1.09); PROTHROMBIN TIME (PATIENT) 15.7 SEC (9.7-13.0)
[2022-12-03 10:30] LABS: POTASSIUM 4.6 mmol/L (3.5-5.1)
[2022-12-03 10:32] LABS: ALBUMIN 1.6 g/dl (3.4-5.0); BLOOD UREA NITROGEN 38.3 mg/dL (7-18); CALCIUM 7.8 mg/dL (8.5-10.1)
[2022-12-03 10:33] LABS: MAGNESIUM 1.6 mg/dL (1.8-2.4)
[2022-12-03 10:36] LABS: CREATININE 2.5 mg/dL (0.55-1.3)
[2022-12-03 10:37] LABS: BILIRUBIN,TOTAL 0.4 mg/dL (0.2-1)
[2022-12-03 10:38] LABS: TOT PROT 4.1 g/dl (6.4-8.2)
[2022-12-03] MEDS: AMINO ACIDS/PROTEIN HYDROLYS 30 ML LIQUID.PKT PO SCH ×2 (10:40→17:25)
[2022-12-03] MEDS: DOCUSATE SODIUM 100 MG CAPSULE (FP) PO SCH ×2 (10:41→21:33)
[2022-12-03] MEDS ORDERED: MIDAZOLAM HCL 2 MG/2 ML SINGLE DOSE VIAL ONE (11:30)
[2022-12-03] MEDS ORDERED: FENTANYL CITRATE/PF 50 MCG/ML VIAL ONE (11:30)
[2022-12-03] MEDS ORDERED: MIDAZOLAM HCL 2 MG/2 ML SINGLE DOSE VIAL IVPUSH ONE (11:45)
[2022-12-03] MEDS: SODIUM CHLORIDE 500 ML IV SCH (11:45)
[2022-12-03] MEDS: SEVELAMER CARBONATE 800 MG TAB (FP) PO SCH ×3 (12:11→17:30)
[2022-12-03] MEDS: SODIUM BICARBONATE 650 MG TABLET PO SCH ×2 (12:11→21:33)
[2022-12-03] MEDS ORDERED: INSULIN (NOVOLOG) ASPART 100 UNITS/ML 10ML VIAL ONE (17:26)
[2022-12-03] MEDS: ROSUVASTATIN CA 20 MG TABLET PO SCH (21:34)
[2022-12-03] MEDS: SENNOSIDES 8.8 MG/5 ML SYRUP PO SCH (21:35)
[2022-12-04] MEDS: morphine SULFATE IMMEDIATE RELEASE 30 MG TAB PO PRN ×3 (02:07→14:08)
[2022-12-04] MEDS: LACTULOSE 20 GM/30 ML UDC (FOR ORAL USE ONLY) PO SCH ×3 (05:06→21:21)
[2022-12-04] MEDS: POLYETHYLENE GLYCOL (HEALTHYLAX) 3350 17 GM PACKET PO SCH ×3 (05:07→21:22)
[2022-12-04] MEDS: HALOPERIDOL LACTATE 5 MG/ML IM PRN (05:25)
[2022-12-04] MEDS: INSULIN SLIDING SCALE (NOVOLOG) 1 VIAL SQ SCH ×4 (06:06→21:28)
[2022-12-04 09:36] LABS: BASO % 0.4 % (0-2.0); EOS % 2.3 % (0-4.5); HEMOGLOBIN 8.1 GM/dL (11.7-16.9); INR 1.3 (0.83-1.09); LYMPH % 28.1 % (8-40); MCH 26.8 pg (25.7-33.7); MCHC 32.5 g/dl (32.0-35.9); MEAN CELL VOLUME 82.3 fl (80-96); MEAN PLT VOLUME 7.9 fl (7.5-11.1); MONO % 10.8 % (3.8-10.2); NEUT % 58.4 % (42.8-82.8); PLATELET COUNT 153 10^3/uL (134-434); RBC 3.04 M/mm3 (4.00-5.60); RDW 14.9 % (11.9-15.9); WHITE BLOOD COUNT 4.8 K/mm3 (4.0-10.0)
[2022-12-04] MEDS: SODIUM BICARBONATE 650 MG TABLET PO SCH ×2 (09:49→21:23)
[2022-12-04] MEDS: METOPROLOL TARTRATE 25 MG TABLET (FP) PO SCH ×2 (09:49→21:22)
[2022-12-04] MEDS: SEVELAMER CARBONATE 800 MG TAB (FP) PO SCH ×3 (09:49→16:58)
[2022-12-04] MEDS: AMIODARONE HCL 200 MG TABLET PO SCH (09:49)
[2022-12-04] MEDS: AMINO ACIDS/PROTEIN HYDROLYS 30 ML LIQUID.PKT PO SCH ×2 (09:49→16:57)
[2022-12-04] MEDS: ASCORBIC ACID 500 MG TABLET (FP) PO SCH (09:50)
[2022-12-04] MEDS: ARIPiprazole 10 MG TABLET PO SCH (09:51)
[2022-12-04] MEDS: PANTOPRAZOLE 40 MG TABLET PO SCH (09:51)
[2022-12-04] MEDS: TAMSULOSIN HCL 0.4 MG CAP PO SCH ×2 (09:51→21:23)
[2022-12-04] MEDS: FINASTERIDE 5 MG TABLET (FP) PO SCH (09:52)
[2022-12-04] MEDS: CEFTRIAXONE 1 GM in DEXTROSE 5%-WATER - 50 ML IVPB SCH (09:55)
[2022-12-04] MEDS: DOCUSATE SODIUM 100 MG CAPSULE (FP) PO SCH ×2 (09:55→21:22)
[2022-12-04 09:59] LABS: POTASSIUM 4.5 mmol/L (3.5-5.1)
[2022-12-04 10:06] LABS: CALCIUM 7.7 mg/dL (8.5-10.1)
[2022-12-04 10:07] LABS: ALBUMIN 1.6 g/dl (3.4-5.0); BLOOD UREA NITROGEN 35.8 mg/dL (7-18); CREATININE 2.5 mg/dL (0.55-1.3); MAGNESIUM 1.8 mg/dL (1.8-2.4)
[2022-12-04 10:08] LABS: BILIRUBIN,TOTAL 0.3 mg/dL (0.2-1)
[2022-12-04 10:09] LABS: TOT PROT 4.5 g/dl (6.4-8.2)
[2022-12-04] MEDS ORDERED: MAGNESIUM OXIDE 400 MG TABLET (FP) PO ONE (11:00)
[2022-12-04] MEDS ORDERED: INSULIN (NOVOLOG) ASPART 100 UNITS/ML 10ML VIAL ONE ×2 (11:29→21:26)
[2022-12-04] MEDS: ENOXAPARIN NA (PORCINE) 60 MG/0.6 ML DISP.SYRIN SQ SCH (13:32)
[2022-12-04] MEDS: SODIUM CHLORIDE 500 ML IV SCH (13:39)
[2022-12-04] MEDS: traMADol HCL 50 MG TABLET PO PRN (16:57)
[2022-12-04] MEDS: ROSUVASTATIN CA 20 MG TABLET PO SCH (21:23)
[2022-12-04] MEDS: SENNOSIDES 8.8 MG/5 ML SYRUP PO SCH (21:24)
[2022-12-04] MEDS: INSULIN (LEVEMIR) 100 UNITS/ML UNITS SQ SCH (21:24)
[2022-12-05] MEDS: traMADol HCL 50 MG TABLET PO PRN ×2 (00:48→21:12)
[2022-12-05] MEDS: ENOXAPARIN NA (PORCINE) 60 MG/0.6 ML DISP.SYRIN SQ SCH ×2 (00:48→14:17)
[2022-12-05] MEDS: LACTULOSE 20 GM/30 ML UDC (FOR ORAL USE ONLY) PO SCH ×3 (05:18→22:35)
[2022-12-05] MEDS: POLYETHYLENE GLYCOL (HEALTHYLAX) 3350 17 GM PACKET PO SCH ×3 (05:18→22:35)
[2022-12-05] MEDS: INSULIN SLIDING SCALE (NOVOLOG) 1 VIAL SQ SCH ×4 (07:27→22:45)
[2022-12-05 07:58] LABS: BASO % 0.4 % (0-2.0); EOS % 1.6 % (0-4.5); HEMATOCRIT 23.3 % (35.4-49); HEMOGLOBIN 7.6 GM/dL (11.7-16.9); LYMPH % 30.9 % (8-40); MCH 27.2 pg (25.7-33.7); MCHC 32.7 g/dl (32.0-35.9); MEAN CELL VOLUME 83.1 fl (80-96); MEAN PLT VOLUME 7.8 fl (7.5-11.1); MONO % 12.6 % (3.8-10.2); NEUT % 54.5 % (42.8-82.8); PLATELET COUNT 165 10^3/uL (134-434); WHITE BLOOD COUNT 5.1 K/mm3 (4.0-10.0)
[2022-12-05] MEDS: SEVELAMER CARBONATE 800 MG TAB (FP) PO SCH ×4 (08:06→17:22)
[2022-12-05] MEDS: TAMSULOSIN HCL 0.4 MG CAP PO SCH ×2 (08:07→22:34)
[2022-12-05] MEDS: AMINO ACIDS/PROTEIN HYDROLYS 30 ML LIQUID.PKT PO SCH ×2 (08:08→17:30)
[2022-12-05 08:23] LABS: POTASSIUM 4.3 mmol/L (3.5-5.1)
[2022-12-05 08:25] LABS: ALBUMIN 1.6 g/dl (3.4-5.0); CALCIUM 7.7 mg/dL (8.5-10.1)
[2022-12-05 08:28] LABS: CREATININE 2.2 mg/dL (0.55-1.3)
[2022-12-05 08:30] LABS: BILIRUBIN,TOTAL 0.2 mg/dL (0.2-1); TOT PROT 4.6 g/dl (6.4-8.2)
[2022-12-05] MEDS: SODIUM BICARBONATE 650 MG TABLET PO SCH ×2 (09:29→22:34)
[2022-12-05] MEDS: AMIODARONE HCL 200 MG TABLET PO SCH (09:29)
[2022-12-05] MEDS: PANTOPRAZOLE 40 MG TABLET PO SCH (09:29)
[2022-12-05] MEDS: FINASTERIDE 5 MG TABLET (FP) PO SCH (09:30)
[2022-12-05] MEDS: DOCUSATE SODIUM 100 MG CAPSULE (FP) PO SCH ×2 (09:30→22:35)
[2022-12-05] MEDS: METOPROLOL TARTRATE 25 MG TABLET (FP) PO SCH ×2 (09:30→22:35)
[2022-12-05] MEDS: ARIPiprazole 10 MG TABLET PO SCH (09:30)
[2022-12-05] MEDS: CEFTRIAXONE 1 GM in DEXTROSE 5%-WATER - 50 ML IVPB SCH (09:33)
[2022-12-05] MEDS: ASCORBIC ACID 500 MG TABLET (FP) PO SCH (09:33)
[2022-12-05] MEDS ORDERED: INSULIN (NOVOLOG) ASPART 100 UNITS/ML 10ML VIAL ONE (21:45)
[2022-12-05] MEDS: ROSUVASTATIN CA 20 MG TABLET PO SCH (22:34)
[2022-12-05] MEDS: SENNOSIDES 8.8 MG/5 ML SYRUP PO SCH (22:35)
[2022-12-05] MEDS: INSULIN (LEVEMIR) 100 UNITS/ML UNITS SQ SCH (22:45)
[2022-12-06] MEDS: ENOXAPARIN NA (PORCINE) 60 MG/0.6 ML DISP.SYRIN SQ SCH ×2 (01:17→14:41)
[2022-12-06] MEDS: HALOPERIDOL LACTATE 5 MG/ML IM PRN (02:08)
[2022-12-06] MEDS: POLYETHYLENE GLYCOL (HEALTHYLAX) 3350 17 GM PACKET PO SCH ×3 (05:29→20:59)
[2022-12-06] MEDS: LACTULOSE 20 GM/30 ML UDC (FOR ORAL USE ONLY) PO SCH ×3 (05:29→21:01)
[2022-12-06] MEDS: traMADol HCL 50 MG TABLET PO PRN ×3 (07:46→22:26)
[2022-12-06] MEDS: INSULIN SLIDING SCALE (NOVOLOG) 1 VIAL SQ SCH ×4 (08:13→21:39)
[2022-12-06] MEDS: AMINO ACIDS/PROTEIN HYDROLYS 30 ML LIQUID.PKT PO SCH ×2 (09:32→18:06)
[2022-12-06] MEDS: TAMSULOSIN HCL 0.4 MG CAP PO SCH ×2 (09:34→20:59)
[2022-12-06] MEDS: ASCORBIC ACID 500 MG TABLET (FP) PO SCH (09:35)
[2022-12-06] MEDS: PANTOPRAZOLE 40 MG TABLET PO SCH (09:35)
[2022-12-06] MEDS: SEVELAMER CARBONATE 800 MG TAB (FP) PO SCH ×3 (09:35→18:35)
[2022-12-06] MEDS: FINASTERIDE 5 MG TABLET (FP) PO SCH (09:35)
[2022-12-06] MEDS: METOPROLOL TARTRATE 25 MG TABLET (FP) PO SCH ×2 (09:35→21:01)
[2022-12-06] MEDS: ARIPiprazole 10 MG TABLET PO SCH (09:35)
[2022-12-06] MEDS: SODIUM BICARBONATE 650 MG TABLET PO SCH ×2 (09:35→21:00)
[2022-12-06] MEDS: AMIODARONE HCL 200 MG TABLET PO SCH (09:35)
[2022-12-06 10:54] LABS: BASO % 0.2 % (0-2.0); EOS % 2.8 % (0-4.5); HEMATOCRIT 24.1 % (35.4-49); HEMOGLOBIN 7.7 GM/dL (11.7-16.9); LYMPH % 31.6 % (8-40); MCH 26.1 pg (25.7-33.7); MCHC 32.1 g/dl (32.0-35.9); MEAN CELL VOLUME 81.4 fl (80-96); MEAN PLT VOLUME 7.9 fl (7.5-11.1); MONO % 11.5 % (3.8-10.2); NEUT % 53.9 % (42.8-82.8); PLATELET COUNT 202 10^3/uL (134-434); RBC 2.96 M/mm3 (4.00-5.60); RDW 15.2 % (11.9-15.9); WHITE BLOOD COUNT 5.2 K/mm3 (4.0-10.0)
[2022-12-06 11:00] LABS: POTASSIUM 4.2 mmol/L (3.5-5.1)
[2022-12-06 11:02] LABS: ALBUMIN 1.6 g/dl (3.4-5.0)
[2022-12-06 11:03] LABS: BLOOD UREA NITROGEN 26.4 mg/dL (7-18); MAGNESIUM 1.8 mg/dL (1.8-2.4)
[2022-12-06 11:07] LABS: BILIRUBIN,TOTAL 0.3 mg/dL (0.2-1); TOT PROT 4.6 g/dl (6.4-8.2)
[2022-12-06] MEDS: DOCUSATE SODIUM 100 MG CAPSULE (FP) PO SCH ×2 (11:25→21:00)
[2022-12-06] MEDS: CEFTRIAXONE 1 GM in DEXTROSE 5%-WATER - 50 ML IVPB SCH (11:48)
[2022-12-06 15:28] VITALS: RESP 20
[2022-12-06] MEDS ORDERED: ONDANSETRON 4 MG/2 ML VIAL IVPB ONE (17:35)
[2022-12-06] MEDS: ACETAMINOPHEN 325 MG TABLET (FP) PO PRN (20:03)
[2022-12-06] MEDS: ROSUVASTATIN CA 20 MG TABLET PO SCH (21:00)
[2022-12-06] MEDS: SENNOSIDES 8.8 MG/5 ML SYRUP PO SCH (21:20)
[2022-12-06] MEDS: INSULIN (LEVEMIR) 100 UNITS/ML UNITS SQ SCH (22:26)
[2022-12-07] MEDS: ENOXAPARIN NA (PORCINE) 60 MG/0.6 ML DISP.SYRIN SQ SCH ×2 (01:04→12:33)
[2022-12-07] MEDS: ACETAMINOPHEN 325 MG TABLET (FP) PO PRN ×2 (01:04→09:53)
[2022-12-07] MEDS: LACTULOSE 20 GM/30 ML UDC (FOR ORAL USE ONLY) PO SCH ×2 (06:43→14:19)
[2022-12-07] MEDS: INSULIN SLIDING SCALE (NOVOLOG) 1 VIAL SQ SCH ×2 (06:44→11:55)
[2022-12-07] MEDS: POLYETHYLENE GLYCOL (HEALTHYLAX) 3350 17 GM PACKET PO SCH ×2 (06:44→14:19)
[2022-12-07] MEDS: traMADol HCL 50 MG TABLET PO PRN ×2 (07:05→14:13)
[2022-12-07] MEDS: SEVELAMER CARBONATE 800 MG TAB (FP) PO SCH ×2 (08:24→12:33)
[2022-12-07] MEDS: AMINO ACIDS/PROTEIN HYDROLYS 30 ML LIQUID.PKT PO SCH (08:24)
[2022-12-07] MEDS: TAMSULOSIN HCL 0.4 MG CAP PO SCH (08:24)
[2022-12-07] MEDS: PANTOPRAZOLE 40 MG TABLET PO SCH (09:53)
[2022-12-07] MEDS: ASCORBIC ACID 500 MG TABLET (FP) PO SCH (09:53)
[2022-12-07] MEDS: ARIPiprazole 10 MG TABLET PO SCH (09:54)
[2022-12-07] MEDS: FINASTERIDE 5 MG TABLET (FP) PO SCH (09:54)
[2022-12-07] MEDS: METOPROLOL TARTRATE 25 MG TABLET (FP) PO SCH (09:55)
[2022-12-07] MEDS: AMIODARONE HCL 200 MG TABLET PO SCH (09:55)
[2022-12-07] MEDS: SODIUM BICARBONATE 650 MG TABLET PO SCH (09:55)
[2022-12-07] MEDS: DOCUSATE SODIUM 100 MG CAPSULE (FP) PO SCH (09:56)
[2022-12-07] MEDS ORDERED: LIDOCAINE 5% TOPICAL PATCH TP SCH (12:15)
[2022-12-07] MEDS ORDERED: traMADol HCL 50 MG TABLET PO ONE (14:08)
[2022-12-07 16:15] VITALS: BP 121/69; PULSE 76; TEMP 98
[2022-12-07] MEDS ORDERED: LIDOCAINE PATCH REMOVAL MC SCH (22:00)
== END 2022-12-07 16:27 | DRG 443 ==
LOC: JER 18:45 → JERBED 22:52 → J8W 11-28 01:37 → OBSVTOIN 11-29 08:39
PROVIDERS: ADMIT Internal Medicine; ATTEND Nurse Practitioner Family
PROC: BT1DZZZ Fluoroscopy of Right Kidney, Ureter and Bladder (ICD-10-PCS; 2022-11-29)
PROC: 0TJB8ZZ Inspection of Bladder, Via Natural or Artificial Opening Endoscopic (ICD-10-PCS; principal; 2022-11-29 13:30)
PROC: 0T778DZ Dilation of Left Ureter with Intraluminal Device, Via Natural or Artificial Opening Endoscopic (ICD-10-PCS; 2022-11-29 13:30)
PROC: 0T9030Z Drainage of Right Kidney with Drainage Device, Percutaneous Approach (ICD-10-PCS; 2022-12-03)
PROC: BT01ZZZ Plain Radiography of Right Kidney (ICD-10-PCS; 2022-12-03)
DX: N13.6 Pyonephrosis (principal); K86.1 Other chronic pancreatitis; E78.5 Hyperlipidemia, unspecified; I48.91 Unspecified atrial fibrillation; F20.9 Schizophrenia, unspecified; N40.1 Benign prostatic hyperplasia with lower urinary tract symptoms; K59.00 Constipation, unspecified; D64.9 Anemia, unspecified; R33.8 Other retention of urine; I12.9 Hypertensive chronic kidney disease with stage 1 through stage 4 chronic kidney disease, or unspecified chronic kidney disease; E11.22 Type 2 diabetes mellitus with diabetic chronic kidney disease; N18.9 Chronic kidney disease, unspecified; E11.65 Type 2 diabetes mellitus with hyperglycemia; N17.9 Acute kidney failure, unspecified; K22.89 Other specified disease of esophagus; M41.9 Scoliosis, unspecified; I25.10 Atherosclerotic heart disease of native coronary artery without angina pectoris; L89.153 Pressure ulcer of sacral region, stage 3; L89.893 Pressure ulcer of other site, stage 3; B96.20 Unspecified Escherichia coli [E. coli] as the cause of diseases classified elsewhere; Q53.9 Undescended testicle, unspecified; Z89.611 Acquired absence of right leg above knee; Z89.512 Acquired absence of left leg below knee
CPT/HCPCS: 36415; 50432; 71045-TC-FY; 76000-TC-FY; 76775-TC; 80053; 80307; 81003; 82010; 82570; 82607; 82728; 82746; 82803; 82962; 83540; 83550; 83605; 83615; 83690; 83735; 84100; 84156; 84300; 85025; 85045; 85610; 85730; 87040; 87070; 87075; 87086; 87102; 87116; 87186; 87205; 87206; 87210; 87635; 93005; 93010; 94760; 97161-GP; 99285-25; A4358; C1729; C2617; G0378

== ENCOUNTER 2022-12-09 14:17 | Inpatient (IN) | payer OTHER ==
[2022-12-09] MEDS ORDERED: ONDANSETRON 4 MG TABLET PO ONE (15:15)
[2022-12-09] MEDS ORDERED: SODIUM CHLORIDE 0.9% 500 ML INFUS.BAG IV ONE (15:15)
[2022-12-09] MEDS ORDERED: TRIMETHOBENZAMIDE HCL 200MG/2ML INJ IM ONE ×2 (15:21→16:26)
[2022-12-09] MEDS ORDERED: ONDANSETRON *ODT* 4 MG TABLET ONE (16:27)
[2022-12-09 16:48] LABS: BASO % 0.5 % (0-2.0); EOS % 0.4 % (0-4.5); HEMATOCRIT 27.5 % (35.4-49); HEMOGLOBIN 8.8 GM/dL (11.7-16.9); LYMPH % 11.1 % (8-40); MCH 26.4 pg (25.7-33.7); MCHC 31.9 g/dl (32.0-35.9); MEAN CELL VOLUME 82.5 fl (80-96); MEAN PLT VOLUME 8.2 fl (7.5-11.1); MONO % 3.4 % (3.8-10.2); NEUT % 84.6 % (42.8-82.8); PLATELET COUNT 364 10^3/uL (134-434); RBC 3.33 M/mm3 (4.00-5.60); RDW 15.6 % (11.9-15.9); WHITE BLOOD COUNT 16.5 K/mm3 (4.0-10.0)
[2022-12-09 17:09] LABS: POTASSIUM 5.1 mmol/L (3.5-5.1)
[2022-12-09 17:10] LABS: CALCIUM 7.9 mg/dL (8.5-10.1)
[2022-12-09 17:11] LABS: ALBUMIN 1.7 g/dl (3.4-5.0)
[2022-12-09 17:14] LABS: CREATININE 2.4 mg/dL (0.55-1.3)
[2022-12-09 17:16] LABS: BILIRUBIN,TOTAL 0.6 mg/dL (0.2-1); TOT PROT 5.4 g/dl (6.4-8.2)
[2022-12-09] MEDS ORDERED: morphine CARPU-JECT 4 MG/1 ML DISP.SYRIN IVPUSH ONE (17:29)
[2022-12-09] MEDS ORDERED: morphine SULFATE 4 MG/ML VIAL ONE (17:29)
[2022-12-09] MEDS ORDERED: MEROPENEM 1 GM in DEXTROSE 5%-WATER 100 ML IVPB ONE (18:24)
[2022-12-09] MEDS ORDERED: MEROPENEM 1 GM VIAL (RESTRICTED TO ID) IVPB ONE (18:30)
[2022-12-09] MEDS ORDERED: LACTATED RINGERS SOLUTION 1,000 ML/1,000 ML INFUS.BAG IV SCH (21:30)
[2022-12-09] MEDS ORDERED: traMADol HCL 50 MG TABLET PO PRN (21:59)
[2022-12-09] MEDS: METOPROLOL TARTRATE 25 MG TABLET (FP) PO SCH (22:26)
[2022-12-09] MEDS ORDERED: ROSUVASTATIN CA 20 MG TABLET ONE (22:37)
[2022-12-09] MEDS: ROSUVASTATIN CA 20 MG TABLET PO SCH (22:40)
[2022-12-10 00:08] LABS: N-TERMINAL BNP 1939.2 pg/ml (5-125)
[2022-12-10 01:42] VITALS: BMI 34.7
[2022-12-10] MEDS ORDERED: MEROPENEM 1 GM in DEXTROSE 5%-WATER 100 ML IVPB SCH (02:00)
[2022-12-10] MEDS ORDERED: HALOPERIDOL LACTATE 5 MG/ML IM ONE (02:28)
[2022-12-10] MEDS: MINERAL OIL ENEMA 133 ML ENEMA RC SCH ×2 (02:28→09:13)
[2022-12-10] MEDS: TRIMETHOBENZAMIDE HCL 200MG/2ML INJ IM ONE ×2 (02:52→03:12)
[2022-12-10] MEDS: LORazepam 2 MG/ML SDV VIAL IVPUSH ONE ×2 (02:52→03:11)
[2022-12-10] MEDS: LACTULOSE 20 GM/30 ML UDC (FOR ORAL USE ONLY) PO SCH ×3 (05:39→21:11)
[2022-12-10] MEDS: INSULIN SLIDING SCALE (NOVOLOG) 1 VIAL SQ SCH ×5 (06:32→22:58)
[2022-12-10] MEDS ORDERED: SODIUM CHLORIDE 1,000 ML IV SCH (08:15)
[2022-12-10] MEDS: METOPROLOL TARTRATE 25 MG TABLET (FP) PO SCH ×2 (09:05→21:10)
[2022-12-10] MEDS: ROSUVASTATIN CA 20 MG TABLET PO SCH (09:05)
[2022-12-10] MEDS: FINASTERIDE 5 MG TABLET (FP) PO SCH (09:05)
[2022-12-10] MEDS: PANTOPRAZOLE 40 MG TABLET PO SCH (09:05)
[2022-12-10] MEDS: CEFTRIAXONE 1 GM in DEXTROSE 5%-WATER - 50 ML IVPB SCH (09:05)
[2022-12-10] MEDS: TRIMETHOBENZAMIDE HCL 200MG/2ML INJ IM PRN (09:06)
[2022-12-10] MEDS: TAMSULOSIN HCL 0.4 MG CAP PO SCH (09:06)
[2022-12-10 09:56] LABS: BASO % 0.1 % (0-2.0); EOS % 0.5 % (0-4.5); HEMATOCRIT 24.3 % (35.4-49); HEMOGLOBIN 7.6 GM/dL (11.7-16.9); LYMPH % 12.2 % (8-40); MCH 25.3 pg (25.7-33.7); MCHC 31.3 g/dl (32.0-35.9); MEAN CELL VOLUME 80.7 fl (80-96); MEAN PLT VOLUME 7.8 fl (7.5-11.1); NEUT % 82.2 % (42.8-82.8); PLATELET COUNT 299 10^3/uL (134-434); RBC 3.01 M/mm3 (4.00-5.60); WHITE BLOOD COUNT 11.1 K/mm3 (4.0-10.0)
[2022-12-10] MEDS ORDERED: PEG 3350/NA SULF BICARB CL/KCL 4000 ML SOLN.RECON PO SCH (10:00)
[2022-12-10 10:02] LABS: INR 1.38 (0.83-1.09); PROTHROMBIN TIME (PATIENT) 15.9 SEC (9.7-13.0)
[2022-12-10 10:04] LABS: ACTIVATED PTT 37.6 SECONDS (25.2-36.5)
[2022-12-10 10:16] LABS: POTASSIUM 3.8 mmol/L (3.5-5.1)
[2022-12-10 10:18] LABS: CALCIUM 7.5 mg/dL (8.5-10.1)
[2022-12-10 10:19] LABS: ALBUMIN 1.5 g/dl (3.4-5.0); BLOOD UREA NITROGEN 33.8 mg/dL (7-18)
[2022-12-10] MEDS: AMIODARONE HCL 200 MG TABLET PO SCH (10:21)
[2022-12-10 10:22] LABS: CREATININE 1.8 mg/dL (0.55-1.3)
[2022-12-10] MEDS: ARIPiprazole 10 MG TABLET PO SCH (10:22)
[2022-12-10] MEDS: FLUoxetine HCL 10 MG CAPSULE PO SCH (10:22)
[2022-12-10 10:23] LABS: BILIRUBIN,TOTAL 0.6 mg/dL (0.2-1)
[2022-12-10 10:24] LABS: TOT PROT 4.6 g/dl (6.4-8.2)
[2022-12-10] MEDS ORDERED: LACTATED RINGERS SOLUTION 1,000 ML/1,000 ML INFUS.BAG IV SCH (14:00)
[2022-12-10] MEDS: LACTATED RINGERS SOLUTION 1,000 ML/1,000 ML INFUS.BAG IV SCH (15:01)
[2022-12-10 17:04] LABS: EPI CELLS 14 /uL (0-25.1); HYALINE CASTS 1 /uL (0-3.1); URINE APPEARANCE CLEAR; URINE BACTERIA 18 /uL (0-1359); URINE BILIRUBIN NEGATIVE (NEGATIVE); URINE COLOR YELLOW; URINE GLUCOSE (UA) NEGATIVE (NEGATIVE); URINE KETONE 1+ (NEGATIVE); URINE LEUK ESTERASE TRACE (NEGATIVE); URINE NITRITE NEGATIVE (NEGATIVE); URINE PROTEIN 2+ (NEGATIVE); URINE RBC 167 /uL (0-23.9); URINE UROBILINOGEN 0.2 mg/dL (0.2-1.0); URINE WBC 102 /uL (0-25.8)
[2022-12-10] MEDS: MELATONIN 5 MG TABLETS PO SCH (21:10)
[2022-12-10] MEDS: INSULIN (LEVEMIR) 100 UNITS/ML UNITS SQ SCH (21:11)
[2022-12-10] MEDS ORDERED: INSULIN (NOVOLOG) ASPART 100 UNITS/ML 10ML VIAL ONE (22:57)
[2022-12-11] MEDS ORDERED: MEROPENEM 1 GM in DEXTROSE 5%-WATER 100 ML IVPB SCH (02:00)
[2022-12-11] MEDS: LACTULOSE 20 GM/30 ML UDC (FOR ORAL USE ONLY) PO SCH ×3 (05:48→22:24)
[2022-12-11] MEDS ORDERED: INSULIN (NOVOLOG) ASPART 100 UNITS/ML 10ML VIAL ONE (06:48)
[2022-12-11] MEDS: INSULIN SLIDING SCALE (NOVOLOG) 1 VIAL SQ SCH ×4 (06:50→22:32)
[2022-12-11] MEDS: TAMSULOSIN HCL 0.4 MG CAP PO SCH (08:23)
[2022-12-11] MEDS: ROSUVASTATIN CA 20 MG TABLET PO SCH (10:04)
[2022-12-11] MEDS: FLUoxetine HCL 10 MG CAPSULE PO SCH (10:05)
[2022-12-11] MEDS: ARIPiprazole 10 MG TABLET PO SCH (10:05)
[2022-12-11] MEDS: AMIODARONE HCL 200 MG TABLET PO SCH (10:05)
[2022-12-11] MEDS: PANTOPRAZOLE 40 MG TABLET PO SCH (10:05)
[2022-12-11] MEDS: INSULIN (LEVEMIR) 100 UNITS/ML UNITS SQ SCH ×2 (10:06→22:31)
[2022-12-11] MEDS: METOPROLOL TARTRATE 25 MG TABLET (FP) PO SCH ×2 (10:06→22:35)
[2022-12-11] MEDS: FINASTERIDE 5 MG TABLET (FP) PO SCH (10:07)
[2022-12-11] MEDS: CEFTRIAXONE 1 GM in DEXTROSE 5%-WATER - 50 ML IVPB SCH (10:07)
[2022-12-11] MEDS: ENOXAPARIN NA (PORCINE) 40 MG/0.4 ML DISP.SYRIN SQ SCH (12:17)
[2022-12-11] MEDS: LACTATED RINGERS SOLUTION 1,000 ML/1,000 ML INFUS.BAG IV SCH (15:14)
[2022-12-11] MEDS: AMINO ACIDS/PROTEIN HYDROLYS 30 ML LIQUID.PKT GT SCH (17:03)
[2022-12-11] MEDS: MELATONIN 5 MG TABLETS PO SCH (22:32)
[2022-12-12] MEDS: LACTULOSE 20 GM/30 ML UDC (FOR ORAL USE ONLY) PO SCH ×3 (05:38→21:02)
[2022-12-12] MEDS: INSULIN SLIDING SCALE (NOVOLOG) 1 VIAL SQ SCH ×4 (06:19→21:08)
[2022-12-12] MEDS: TAMSULOSIN HCL 0.4 MG CAP PO SCH (08:52)
[2022-12-12] MEDS: AMINO ACIDS/PROTEIN HYDROLYS 30 ML LIQUID.PKT GT SCH ×2 (08:53→17:35)
[2022-12-12] MEDS: CEFTRIAXONE 1 GM in DEXTROSE 5%-WATER - 50 ML IVPB SCH (09:42)
[2022-12-12] MEDS: ENOXAPARIN NA (PORCINE) 40 MG/0.4 ML DISP.SYRIN SQ SCH (09:45)
[2022-12-12] MEDS: PANTOPRAZOLE 40 MG TABLET PO SCH (09:47)
[2022-12-12] MEDS: METOPROLOL TARTRATE 25 MG TABLET (FP) PO SCH ×2 (09:47→21:02)
[2022-12-12] MEDS: FINASTERIDE 5 MG TABLET (FP) PO SCH (09:47)
[2022-12-12] MEDS: ROSUVASTATIN CA 20 MG TABLET PO SCH (09:47)
[2022-12-12] MEDS: ARIPiprazole 10 MG TABLET PO SCH (09:58)
[2022-12-12] MEDS: MULTIVIT-MINERALS ORAL LIQUID PO SCH (09:59)
[2022-12-12] MEDS: ASCORBIC ACID 500 MG/5 ML UNIT DOSE CUP GT SCH (09:59)
[2022-12-12] MEDS: FLUoxetine HCL 10 MG CAPSULE PO SCH (09:59)
[2022-12-12] MEDS: AMIODARONE HCL 200 MG TABLET PO SCH (09:59)
[2022-12-12] MEDS: INSULIN (LEVEMIR) 100 UNITS/ML UNITS SQ SCH ×2 (10:00→21:09)
[2022-12-12] MEDS ORDERED: INSULIN (NOVOLOG) ASPART 100 UNITS/ML 10ML VIAL ONE (18:10)
[2022-12-12] MEDS: TRIMETHOBENZAMIDE HCL 200MG/2ML INJ IM PRN (18:13)
[2022-12-12] MEDS ORDERED: DEXTROSE 5%-0.45% SALINE 1,000 ML IV SCH (18:15)
[2022-12-12] MEDS: MELATONIN 5 MG TABLETS PO SCH (21:02)
[2022-12-13] MEDS: LACTULOSE 20 GM/30 ML UDC (FOR ORAL USE ONLY) PO SCH ×3 (05:45→22:44)
[2022-12-13] MEDS: INSULIN SLIDING SCALE (NOVOLOG) 1 VIAL SQ SCH ×4 (06:02→22:46)
[2022-12-13] MEDS: AMINO ACIDS/PROTEIN HYDROLYS 30 ML LIQUID.PKT GT SCH (08:30)
[2022-12-13 08:50] LABS: BASO % 0.1 % (0-2.0); EOS % 1.3 % (0-4.5); HEMATOCRIT 27.3 % (35.4-49); LYMPH % 25.6 % (8-40); MCH 26.2 pg (25.7-33.7); MCHC 33.1 g/dl (32.0-35.9); MEAN CELL VOLUME 79.3 fl (80-96); MEAN PLT VOLUME 7.6 fl (7.5-11.1); MONO % 7.9 % (3.8-10.2); NEUT % 65.1 % (42.8-82.8); PLATELET COUNT 324 10^3/uL (134-434); RBC 3.44 M/mm3 (4.00-5.60); RDW 15.7 % (11.9-15.9); WHITE BLOOD COUNT 6.5 K/mm3 (4.0-10.0)
[2022-12-13 08:55] LABS: INR 1.63 (0.83-1.09); PROTHROMBIN TIME (PATIENT) 18.8 SEC (9.7-13.0)
[2022-12-13 08:58] LABS: ACTIVATED PTT 44.2 SECONDS (25.2-36.5)
[2022-12-13 09:18] LABS: CALCIUM 7.3 mg/dL (8.5-10.1)
[2022-12-13 09:19] LABS: ALBUMIN 1.4 g/dl (3.4-5.0)
[2022-12-13 09:22] LABS: CREATININE 1.5 mg/dL (0.55-1.3)
[2022-12-13 09:24] LABS: BILIRUBIN,TOTAL 0.4 mg/dL (0.2-1); TOT PROT 4.5 g/dl (6.4-8.2)
[2022-12-13] MEDS ORDERED: BUPIVACAINE HCL/PF 0.25% (2.5MG/ML) 10 ML VIAL ONE (09:36)
[2022-12-13] MEDS: ASCORBIC ACID 500 MG/5 ML UNIT DOSE CUP GT SCH (10:00)
[2022-12-13] MEDS: MULTIVIT-MINERALS ORAL LIQUID PO SCH (10:00)
[2022-12-13] MEDS: INSULIN (LEVEMIR) 100 UNITS/ML UNITS SQ SCH ×2 (10:00→22:46)
[2022-12-13] MEDS ORDERED: PROPOFOL 40 ML ONE (10:05)
[2022-12-13] MEDS ORDERED: ROCURONIUM BROMIDE 50 MG/5 ML SYRINGE ONE ×2 (10:05→11:18)
[2022-12-13] MEDS ORDERED: MIDAZOLAM HCL 2 MG/2 ML SINGLE DOSE VIAL ONE ×2 (10:50→12:50)
[2022-12-13] MEDS ORDERED: PHENYLEPHRINE HCL 10 MG/1 ML SINGLE DOSE VIAL ONE (11:05)
[2022-12-13] MEDS ORDERED: HYDROmorphone HCl 2 MG/ML VIAL ONE (11:18)
[2022-12-13] MEDS ORDERED: BUPIVACAINE HCL/PF 0.25% (2.5MG/ML) 10 ML VIAL IJ ONE ×2 (11:35)
[2022-12-13] MEDS ORDERED: INDOCYANINE GREEN 25 MG/10 ML VIAL IVPUSH ONE ×2 (11:43→11:45)
[2022-12-13] MEDS ORDERED: VASOPRESSIN 20 UNITS/ML VIAL IV ONE (12:36)
[2022-12-13] MEDS ORDERED: NEOSTIGMINE METHYLSULFATE 0.5 MG/1 ML - 10 ML MDV ONE (13:56)
[2022-12-13] MEDS ORDERED: GLYCOPYRROLATE 0.2 MG/1 ML VIAL ONE (13:57)
[2022-12-13] MEDS ORDERED: ACETAMINOPHEN 1000 MG/100 ML BAG IVPB ONE ×2 (14:44→14:56)
[2022-12-13] MEDS ORDERED: ONDANSETRON 4 MG/2 ML VIAL IVPUSH PRN ×2 (14:44→14:56)
[2022-12-13] MEDS ORDERED: LACTATED RINGERS SOLUTION 1,000 ML IV SCH (14:45)
[2022-12-13] MEDS ORDERED: POTASSIUM CHLORIDE ORAL LIQUID 20 MEQ/15 ML PO ONE (15:43)
[2022-12-13] MEDS ORDERED: ACETAMINOPHEN INJECTION 100 ML IVPB ONE (16:13)
[2022-12-13] MEDS: METOPROLOL TARTRATE 25 MG TABLET (FP) PO SCH ×2 (17:28→22:43)
[2022-12-13] MEDS: CEFTRIAXONE 1 GM in DEXTROSE 5%-WATER - 50 ML IVPB SCH (17:29)
[2022-12-13] MEDS: AMIODARONE HCL 200 MG TABLET PO SCH (17:45)
[2022-12-13] MEDS: ARIPiprazole 10 MG TABLET PO SCH (17:45)
[2022-12-13] MEDS: TAMSULOSIN HCL 0.4 MG CAP PO SCH (17:48)
[2022-12-13] MEDS: ROSUVASTATIN CA 20 MG TABLET PO SCH ×2 (17:50→22:42)
[2022-12-13] MEDS: FINASTERIDE 5 MG TABLET (FP) PO SCH (17:50)
[2022-12-13] MEDS: FLUoxetine HCL 10 MG CAPSULE PO SCH (17:51)
[2022-12-13] MEDS: PANTOPRAZOLE 40 MG TABLET PO SCH (17:51)
[2022-12-13] MEDS: AMINO ACIDS/PROTEIN HYDROLYS 30 ML LIQUID.PKT PO SCH (17:53)
[2022-12-13] MEDS: KCL 10 MEQ IVPB 10 MEQ/100 ML INFUS.BAG IVPB SCH ×3 (18:00→22:44)
[2022-12-13] MEDS ORDERED: CEFTRIAXONE 1 GM in DEXTROSE 5%-WATER - 50 ML IVPB ONE (18:00)
[2022-12-13] MEDS: LACTATED RINGERS SOLUTION 1,000 ML IV SCH (19:00)
[2022-12-13] MEDS: MELATONIN 5 MG TABLETS PO SCH (22:42)
[2022-12-13] MEDS ORDERED: INSULIN (NOVOLOG) ASPART 100 UNITS/ML 10ML VIAL ONE (22:54)
[2022-12-14] MEDS: TRIMETHOBENZAMIDE HCL 200MG/2ML INJ IM PRN (00:46)
[2022-12-14] MEDS: ACETAMINOPHEN 1000 MG/100 ML BAG IVPB PRN (03:38)
[2022-12-14] MEDS: LACTULOSE 20 GM/30 ML UDC (FOR ORAL USE ONLY) PO SCH ×2 (06:07→15:34)
[2022-12-14] MEDS: INSULIN SLIDING SCALE (NOVOLOG) 1 VIAL SQ SCH ×3 (06:24→17:00)
[2022-12-14] MEDS: TAMSULOSIN HCL 0.4 MG CAP PO SCH (08:34)
[2022-12-14] MEDS: AMINO ACIDS/PROTEIN HYDROLYS 30 ML LIQUID.PKT PO SCH ×2 (08:35→17:18)
[2022-12-14] MEDS: PANTOPRAZOLE 40 MG TABLET PO SCH (10:12)
[2022-12-14] MEDS: ENOXAPARIN NA (PORCINE) 80 MG/0.8 ML DISP.SYRIN SQ SCH ×2 (10:12→22:42)
[2022-12-14] MEDS: METOPROLOL TARTRATE 25 MG TABLET (FP) PO SCH ×2 (10:12→22:40)
[2022-12-14] MEDS: ARIPiprazole 10 MG TABLET PO SCH (10:14)
[2022-12-14] MEDS: MULTIVIT-MINERALS ORAL LIQUID PO SCH (10:15)
[2022-12-14] MEDS: AMIODARONE HCL 200 MG TABLET PO SCH (10:16)
[2022-12-14] MEDS: INSULIN (LEVEMIR) 100 UNITS/ML UNITS SQ SCH ×2 (10:17→22:30)
[2022-12-14] MEDS: FINASTERIDE 5 MG TABLET (FP) PO SCH (10:19)
[2022-12-14] MEDS: FLUoxetine HCL 10 MG CAPSULE PO SCH (10:20)
[2022-12-14] MEDS: ASCORBIC ACID 500 MG/5 ML UNIT DOSE CUP PO SCH (10:21)
[2022-12-14] MEDS: LACTATED RINGERS SOLUTION 1,000 ML IV SCH ×2 (15:34→18:53)
[2022-12-14] MEDS ORDERED: LACTATED RINGERS SOLUTION 1,000 ML IV SCH (19:18)
[2022-12-14 21:23] LABS: POTASSIUM 3.6 mmol/L (3.5-5.1)
[2022-12-14 21:25] LABS: BLOOD UREA NITROGEN 17.8 mg/dL (7-18); CALCIUM 7.2 mg/dL (8.5-10.1)
[2022-12-14 21:29] LABS: CREATININE 2.3 mg/dL (0.55-1.3)
[2022-12-14] MEDS: MELATONIN 5 MG TABLETS PO SCH (22:30)
[2022-12-14] MEDS: ROSUVASTATIN CA 20 MG TABLET PO SCH (22:41)
[2022-12-15] MEDS: INSULIN SLIDING SCALE (NOVOLOG) 1 VIAL SQ SCH ×5 (06:31→22:30)
[2022-12-15] MEDS: LACTULOSE 20 GM/30 ML UDC (FOR ORAL USE ONLY) PO SCH ×4 (06:34→22:29)
[2022-12-15] MEDS: FINASTERIDE 5 MG TABLET (FP) PO SCH (09:55)
[2022-12-15] MEDS: PANTOPRAZOLE 40 MG TABLET PO SCH (09:55)
[2022-12-15] MEDS: TAMSULOSIN HCL 0.4 MG CAP PO SCH (09:55)
[2022-12-15] MEDS: ENOXAPARIN NA (PORCINE) 80 MG/0.8 ML DISP.SYRIN SQ SCH (09:56)
[2022-12-15] MEDS: AMIODARONE HCL 200 MG TABLET PO SCH (09:56)
[2022-12-15] MEDS: FLUoxetine HCL 10 MG CAPSULE PO SCH (09:56)
[2022-12-15] MEDS: METOPROLOL TARTRATE 25 MG TABLET (FP) PO SCH ×2 (09:56→22:26)
[2022-12-15] MEDS: ARIPiprazole 10 MG TABLET PO SCH (09:56)
[2022-12-15] MEDS: MULTIVIT-MINERALS ORAL LIQUID PO SCH (10:04)
[2022-12-15] MEDS: ASCORBIC ACID 500 MG/5 ML UNIT DOSE CUP PO SCH (10:04)
[2022-12-15] MEDS: AMINO ACIDS/PROTEIN HYDROLYS 30 ML LIQUID.PKT PO SCH ×2 (10:05→17:39)
[2022-12-15] MEDS: DEXTROSE 5%-WATER - 1,000 ML IV SCH ×2 (10:05→14:03)
[2022-12-15] MEDS: ACETAMINOPHEN 1000 MG/100 ML BAG IVPB PRN (11:16)
[2022-12-15] MEDS: INSULIN (LEVEMIR) 100 UNITS/ML UNITS SQ SCH ×2 (12:11→22:28)
[2022-12-15 20:17] LABS: CHLORIDE 117 mmol/L (98-107); POTASSIUM 3.6 mmol/L (3.5-5.1); SODIUM 144 mmol/L (136-145)
[2022-12-15 20:18] LABS: BLOOD UREA NITROGEN 15.6 mg/dL (7-18); CO2 20 mmol/L (21-32); GLUCOSE,RANDOM 191 mg/dL (74-106)
[2022-12-15 20:19] LABS: ANION GAP 7 MMOL/L (8-16)
[2022-12-15 21:03] LABS: CALCIUM 6.7 mg/dL (8.5-10.1)
[2022-12-15] MEDS ORDERED: INSULIN (NOVOLOG) ASPART 100 UNITS/ML 10ML VIAL ONE (21:58)
[2022-12-15] MEDS: MELATONIN 5 MG TABLETS PO SCH (22:25)
[2022-12-15] MEDS: ROSUVASTATIN CA 20 MG TABLET PO SCH (22:25)
[2022-12-15] MEDS: TRIMETHOBENZAMIDE HCL 200MG/2ML INJ IM PRN (23:55)
[2022-12-16] MEDS ORDERED: INSULIN (NOVOLOG) ASPART 100 UNITS/ML 10ML VIAL ONE ×2 (05:40→21:13)
[2022-12-16] MEDS: LACTULOSE 20 GM/30 ML UDC (FOR ORAL USE ONLY) PO SCH ×3 (05:52→22:28)
[2022-12-16] MEDS: INSULIN SLIDING SCALE (NOVOLOG) 1 VIAL SQ SCH ×4 (06:02→23:10)
[2022-12-16] MEDS: AMINO ACIDS/PROTEIN HYDROLYS 30 ML LIQUID.PKT PO SCH ×2 (08:45→17:20)
[2022-12-16] MEDS: TAMSULOSIN HCL 0.4 MG CAP PO SCH (08:48)
[2022-12-16] MEDS: SODIUM CHLORIDE 1,000 ML IV SCH (08:52)
[2022-12-16 09:37] LABS: HEMATOCRIT 18.6 % (35.4-49); MCH 25.5 pg (25.7-33.7); MCHC 31.9 g/dl (32.0-35.9); MEAN CELL VOLUME 79.8 fl (80-96); MEAN PLT VOLUME 7.8 fl (7.5-11.1); PLATELET COUNT 275 10^3/uL (134-434); RBC 2.33 M/mm3 (4.00-5.60); RDW 15.9 % (11.9-15.9); WHITE BLOOD COUNT 6.3 K/mm3 (4.0-10.0)
[2022-12-16 09:41] LABS: HEMOGLOBIN 5.9 GM/dL (11.7-16.9)
[2022-12-16] MEDS: METOPROLOL TARTRATE 25 MG TABLET (FP) PO SCH ×2 (09:50→23:09)
[2022-12-16] MEDS: PANTOPRAZOLE 40 MG TABLET PO SCH (09:50)
[2022-12-16] MEDS: FINASTERIDE 5 MG TABLET (FP) PO SCH (09:50)
[2022-12-16] MEDS: ARIPiprazole 10 MG TABLET PO SCH (09:51)
[2022-12-16] MEDS: AMIODARONE HCL 200 MG TABLET PO SCH (09:51)
[2022-12-16] MEDS: MULTIVIT-MINERALS ORAL LIQUID PO SCH (09:51)
[2022-12-16] MEDS: FLUoxetine HCL 10 MG CAPSULE PO SCH (09:52)
[2022-12-16] MEDS: ASCORBIC ACID 500 MG/5 ML UNIT DOSE CUP PO SCH (09:53)
[2022-12-16 09:55] LABS: POTASSIUM 3.2 mmol/L (3.5-5.1)
[2022-12-16 09:58] LABS: ALBUMIN 1.3 g/dl (3.4-5.0); BLOOD UREA NITROGEN 14.1 mg/dL (7-18)
[2022-12-16 10:00] LABS: CREATININE 1.7 mg/dL (0.55-1.3)
[2022-12-16 10:02] LABS: BILIRUBIN,TOTAL 0.3 mg/dL (0.2-1)
[2022-12-16] MEDS: ACETAMINOPHEN 1000 MG/100 ML BAG IVPB PRN (10:20)
[2022-12-16] MEDS: INSULIN (LEVEMIR) 100 UNITS/ML UNITS SQ SCH ×2 (11:03→23:08)
[2022-12-16 12:21] LABS: HEMATOCRIT 19.6 % (35.4-49); MCH 25.6 pg (25.7-33.7); MCHC 31.3 g/dl (32.0-35.9); MEAN CELL VOLUME 81.7 fl (80-96); MEAN PLT VOLUME 8.6 fl (7.5-11.1); PLATELET COUNT 258 10^3/uL (134-434); WHITE BLOOD COUNT 5.8 K/mm3 (4.0-10.0)
[2022-12-16 12:26] LABS: HEMOGLOBIN 6.1 GM/dL (11.7-16.9)
[2022-12-16] MEDS ORDERED: POTASSIUM CHLORIDE TABS 20 MEQ TABLET.ER (FP) PO ONE (12:45)
[2022-12-16 15:06] LABS: RETICULOCYTES 1.68 % (0.5-1.5)
[2022-12-16] MEDS: SENNOSIDES 8.6MG TABLET (FP) PO SCH (22:29)
[2022-12-16] MEDS: ROSUVASTATIN CA 20 MG TABLET PO SCH (22:29)
[2022-12-16] MEDS: MELATONIN 5 MG TABLETS PO SCH (22:29)
[2022-12-17] MEDS ORDERED: DEXTROSE 50%-WATER - 25 GM/50 ML VIAL IVPUSH PRN (00:38)
[2022-12-17] MEDS: ACETAMINOPHEN 1000 MG/100 ML BAG IVPB PRN (05:29)
[2022-12-17] MEDS: LACTULOSE 20 GM/30 ML UDC (FOR ORAL USE ONLY) PO SCH ×3 (05:30→21:40)
[2022-12-17] MEDS: INSULIN SLIDING SCALE (NOVOLOG) 1 VIAL SQ SCH ×4 (06:38→21:49)
[2022-12-17] MEDS: SODIUM CHLORIDE 1,000 ML IV SCH (07:39)
[2022-12-17] MEDS: TAMSULOSIN HCL 0.4 MG CAP PO SCH (08:29)
[2022-12-17] MEDS: AMINO ACIDS/PROTEIN HYDROLYS 30 ML LIQUID.PKT PO SCH ×2 (08:32→16:44)
[2022-12-17] MEDS: METOPROLOL TARTRATE 25 MG TABLET (FP) PO SCH ×2 (10:09→21:39)
[2022-12-17] MEDS: AMIODARONE HCL 200 MG TABLET PO SCH (10:09)
[2022-12-17] MEDS: FINASTERIDE 5 MG TABLET (FP) PO SCH (10:09)
[2022-12-17] MEDS: FLUoxetine HCL 10 MG CAPSULE PO SCH (10:09)
[2022-12-17] MEDS: PANTOPRAZOLE 40 MG TABLET PO SCH (10:09)
[2022-12-17] MEDS: ARIPiprazole 10 MG TABLET PO SCH (10:09)
[2022-12-17] MEDS: MULTIVIT-MINERALS ORAL LIQUID PO SCH (10:13)
[2022-12-17] MEDS: ASCORBIC ACID 500 MG/5 ML UNIT DOSE CUP PO SCH (10:13)
[2022-12-17] MEDS: INSULIN (LEVEMIR) 100 UNITS/ML UNITS SQ SCH ×2 (11:04→21:48)
[2022-12-17 18:46] LABS: BASO % 0.4 % (0-2.0); EOS % 1.1 % (0-4.5); HEMATOCRIT 24.5 % (35.4-49); HEMOGLOBIN 7.8 GM/dL (11.7-16.9); MCH 26.3 pg (25.7-33.7); MEAN CELL VOLUME 82.3 fl (80-96); MEAN PLT VOLUME 8.4 fl (7.5-11.1); MONO % 6.4 % (3.8-10.2); NEUT % 69.1 % (42.8-82.8); PLATELET COUNT 299 10^3/uL (134-434); RBC 2.98 M/mm3 (4.00-5.60); RDW 15.3 % (11.9-15.9); WHITE BLOOD COUNT 8.1 K/mm3 (4.0-10.0)
[2022-12-17 19:09] LABS: CHLORIDE 114 mmol/L (98-107); POTASSIUM 4.2 mmol/L (3.5-5.1); SODIUM 145 mmol/L (136-145)
[2022-12-17 19:11] LABS: ALBUMIN 1.5 g/dl (3.4-5.0); ANION GAP 8 MMOL/L (8-16); BLOOD UREA NITROGEN 13.4 mg/dL (7-18); CO2 23 mmol/L (21-32); GLUCOSE,RANDOM 131 mg/dL (74-106)
[2022-12-17 19:15] LABS: CREATININE 1.6 mg/dL (0.55-1.3); SGOT/AST 24 U/L (15-37); SGPT/ALT 18 U/L (13-61)
[2022-12-17 19:16] LABS: BILIRUBIN,TOTAL 0.3 mg/dL (0.2-1); TOT PROT 4.3 g/dl (6.4-8.2)
[2022-12-17 19:17] LABS: ALK PHOS 281 U/L (45-117)
[2022-12-17 19:31] LABS: CALCIUM 6.9 mg/dL (8.5-10.1)
[2022-12-17] MEDS ORDERED: ACETAMINOPHEN 1000 MG/100 ML BAG IVPB ONE (21:03)
[2022-12-17] MEDS ORDERED: ONDANSETRON 4 MG/2 ML VIAL IVPUSH ONE (21:11)
[2022-12-17] MEDS ORDERED: INSULIN (NOVOLOG) ASPART 100 UNITS/ML 10ML VIAL ONE (21:19)
[2022-12-17] MEDS: ROSUVASTATIN CA 20 MG TABLET PO SCH (21:39)
[2022-12-17] MEDS: MELATONIN 5 MG TABLETS PO SCH (21:39)
[2022-12-17] MEDS: SENNOSIDES 8.6MG TABLET (FP) PO SCH (21:39)
[2022-12-18] MEDS: LACTULOSE 20 GM/30 ML UDC (FOR ORAL USE ONLY) PO SCH ×4 (05:25→23:01)
[2022-12-18] MEDS: INSULIN SLIDING SCALE (NOVOLOG) 1 VIAL SQ SCH ×4 (06:11→22:55)
[2022-12-18] MEDS: SODIUM CHLORIDE 1,000 ML IV SCH (06:39)
[2022-12-18] MEDS: AMINO ACIDS/PROTEIN HYDROLYS 30 ML LIQUID.PKT PO SCH ×2 (08:39→17:08)
[2022-12-18] MEDS: TAMSULOSIN HCL 0.4 MG CAP PO SCH (08:40)
[2022-12-18] MEDS: ARIPiprazole 10 MG TABLET PO SCH (09:31)
[2022-12-18] MEDS: MULTIVIT-MINERALS ORAL LIQUID PO SCH ×2 (09:31→09:42)
[2022-12-18] MEDS: FLUoxetine HCL 10 MG CAPSULE PO SCH (09:32)
[2022-12-18] MEDS: AMIODARONE HCL 200 MG TABLET PO SCH (09:32)
[2022-12-18] MEDS: METOPROLOL TARTRATE 25 MG TABLET (FP) PO SCH ×2 (09:32→22:49)
[2022-12-18] MEDS: ASCORBIC ACID 500 MG/5 ML UNIT DOSE CUP PO SCH ×2 (09:33→09:42)
[2022-12-18] MEDS: INSULIN (LEVEMIR) 100 UNITS/ML UNITS SQ SCH ×2 (09:34→22:49)
[2022-12-18] MEDS ORDERED: INSULIN (LEVEMIR) 100 UNITS/ML UNITS SQ ONE (11:28)
[2022-12-18] MEDS: FINASTERIDE 5 MG TABLET (FP) PO SCH (11:43)
[2022-12-18] MEDS: PANTOPRAZOLE 40 MG TABLET PO SCH (11:43)
[2022-12-18] MEDS ORDERED: ACETAMINOPHEN 1000 MG/100 ML BAG IVPB ONE (12:00)
[2022-12-18] MEDS ORDERED: SODIUM CHLORIDE 1,000 ML IV SCH (14:28)
[2022-12-18] MEDS ORDERED: INSULIN (NOVOLOG) ASPART 100 UNITS/ML 10ML VIAL ONE (21:49)
[2022-12-18] MEDS: SENNOSIDES 8.6MG TABLET (FP) PO SCH ×2 (22:45→22:48)
[2022-12-18] MEDS: ROSUVASTATIN CA 20 MG TABLET PO SCH (22:48)
[2022-12-18] MEDS: MELATONIN 5 MG TABLETS PO SCH (22:49)
[2022-12-18] MEDS: ACETAMINOPHEN 1000 MG/100 ML BAG IVPB PRN (22:51)
[2022-12-18] MEDS: TRIMETHOBENZAMIDE HCL 200MG/2ML INJ IM PRN (22:52)
[2022-12-19] MEDS: ACETAMINOPHEN 1000 MG/100 ML BAG IVPB PRN ×2 (03:57→18:49)
[2022-12-19] MEDS: LACTULOSE 20 GM/30 ML UDC (FOR ORAL USE ONLY) PO SCH (06:13)
[2022-12-19] MEDS ORDERED: DEXTROSE 50%-WATER 25 GM/50 ML DISP.SYRIN ONE ×2 (06:29→11:31)
[2022-12-19] MEDS: INSULIN SLIDING SCALE (NOVOLOG) 1 VIAL SQ SCH ×4 (06:30→23:14)
[2022-12-19] MEDS: AMINO ACIDS/PROTEIN HYDROLYS 30 ML LIQUID.PKT PO SCH ×2 (08:35→17:44)
[2022-12-19] MEDS: TAMSULOSIN HCL 0.4 MG CAP PO SCH (08:35)
[2022-12-19] MEDS: AMIODARONE HCL 200 MG TABLET PO SCH (10:22)
[2022-12-19] MEDS: METOPROLOL TARTRATE 25 MG TABLET (FP) PO SCH ×2 (10:22→23:13)
[2022-12-19] MEDS: POLYETHYLENE GLYCOL (HEALTHYLAX) 3350 17 GM PACKET PO SCH (10:22)
[2022-12-19] MEDS: FLUoxetine HCL 10 MG CAPSULE PO SCH (10:22)
[2022-12-19] MEDS: ASCORBIC ACID 500 MG/5 ML UNIT DOSE CUP PO SCH (10:22)
[2022-12-19] MEDS: ARIPiprazole 10 MG TABLET PO SCH (10:22)
[2022-12-19] MEDS: MULTIVIT-MINERALS ORAL LIQUID PO SCH (10:22)
[2022-12-19] MEDS: FINASTERIDE 5 MG TABLET (FP) PO SCH (10:22)
[2022-12-19] MEDS: PANTOPRAZOLE 40 MG TABLET PO SCH (10:22)
[2022-12-19] MEDS ORDERED: BISACODYL 10 MG SUPP.RECT PR ONE (10:30)
[2022-12-19] MEDS: INSULIN (LEVEMIR) 100 UNITS/ML UNITS SQ SCH (10:45)
[2022-12-19] MEDS ORDERED: DEXTROSE 50%-WATER 25 GM/50 ML DISP.SYRIN IVPUSH PRN (11:41)
[2022-12-19] MEDS ORDERED: INSULIN (NOVOLOG) ASPART 100 UNITS/ML 10ML VIAL ONE (22:00)
[2022-12-19] MEDS: MELATONIN 5 MG TABLETS PO SCH (23:13)
[2022-12-19] MEDS: ROSUVASTATIN CA 20 MG TABLET PO SCH (23:13)
[2022-12-19] MEDS: SENNOSIDES 8.6MG TABLET (FP) PO SCH (23:14)
[2022-12-20] MEDS: ACETAMINOPHEN 1000 MG/100 ML BAG IVPB PRN (03:29)
[2022-12-20] MEDS: INSULIN SLIDING SCALE (NOVOLOG) 1 VIAL SQ SCH ×4 (06:37→21:52)
[2022-12-20] MEDS: TAMSULOSIN HCL 0.4 MG CAP PO SCH (09:53)
[2022-12-20] MEDS: FINASTERIDE 5 MG TABLET (FP) PO SCH (09:53)
[2022-12-20] MEDS: FLUoxetine HCL 10 MG CAPSULE PO SCH (09:53)
[2022-12-20] MEDS: ARIPiprazole 10 MG TABLET PO SCH (09:53)
[2022-12-20] MEDS: PANTOPRAZOLE 40 MG TABLET PO SCH (09:53)
[2022-12-20] MEDS: METOPROLOL TARTRATE 25 MG TABLET (FP) PO SCH ×2 (10:01→21:35)
[2022-12-20] MEDS: AMIODARONE HCL 200 MG TABLET PO SCH (10:01)
[2022-12-20] MEDS: ASCORBIC ACID 500 MG/5 ML UNIT DOSE CUP PO SCH (10:03)
[2022-12-20] MEDS: MULTIVIT-MINERALS ORAL LIQUID PO SCH (10:03)
[2022-12-20] MEDS: AMINO ACIDS/PROTEIN HYDROLYS 30 ML LIQUID.PKT PO SCH ×2 (10:03→18:19)
[2022-12-20 10:42] LABS: BASO % 0.5 % (0-2.0); EOS % 1.2 % (0-4.5); HEMOGLOBIN 8.1 GM/dL (11.7-16.9); LYMPH % 26.2 % (8-40); MCH 26.7 pg (25.7-33.7); MCHC 32.3 g/dl (32.0-35.9); MEAN CELL VOLUME 82.6 fl (80-96); MEAN PLT VOLUME 8.4 fl (7.5-11.1); NEUT % 66.1 % (42.8-82.8); PLATELET COUNT 298 10^3/uL (134-434); RBC 3.03 M/mm3 (4.00-5.60); RDW 15.6 % (11.9-15.9); WHITE BLOOD COUNT 7.3 K/mm3 (4.0-10.0)
[2022-12-20 11:00] LABS: BLOOD UREA NITROGEN 12.3 mg/dL (7-18); CALCIUM 7.4 mg/dL (8.5-10.1)
[2022-12-20 11:04] LABS: CREATININE 1.5 mg/dL (0.55-1.3)
[2022-12-20 13:56] LABS: MAGNESIUM 1.4 mg/dL (1.8-2.4)
[2022-12-20 13:59] LABS: PHOSPHOROUS 3.3 mg/dL (2.5-4.9)
[2022-12-20] MEDS: POTASSIUM CHLORIDE ORAL LIQUID 20 MEQ/15 ML PO ONE ×2 (14:21→18:18)
[2022-12-20] MEDS: POTASSIUM CHLORIDE 10 MEQ in SODIUM CHLORIDE 0.45% 1,000 ML IVPB SCH ×2 (14:23→14:29)
[2022-12-20] MEDS: POLYETHYLENE GLYCOL (HEALTHYLAX) 3350 17 GM PACKET PO SCH (14:23)
[2022-12-20] MEDS: TRIMETHOBENZAMIDE HCL 200MG/2ML INJ IM PRN (15:35)
[2022-12-20] MEDS ORDERED: MAGNESIUM SULF 50% (8.12 MEQ/2 ML-1 GM VIAL) IVPB ONE (16:38)
[2022-12-20] MEDS ORDERED: POTASSIUM CHLORIDE TABS 20 MEQ TABLET.ER (FP) PO ONE (18:53)
[2022-12-20] MEDS: PANTOPRAZOLE SODIUM 40 MG VIAL IVPUSH SCH (21:35)
[2022-12-20] MEDS: MELATONIN 5 MG TABLETS PO SCH (21:35)
[2022-12-20] MEDS: ROSUVASTATIN CA 20 MG TABLET PO SCH (21:35)
[2022-12-20] MEDS: SENNOSIDES 8.6MG TABLET (FP) PO SCH (21:35)
[2022-12-21] MEDS ORDERED: ACETAMINOPHEN 1000 MG/100 ML BAG IVPB PRN (00:10)
[2022-12-21] MEDS: INSULIN SLIDING SCALE (NOVOLOG) 1 VIAL SQ SCH ×4 (06:21→23:06)
[2022-12-21] MEDS: AMINO ACIDS/PROTEIN HYDROLYS 30 ML LIQUID.PKT PO SCH ×2 (08:43→17:35)
[2022-12-21] MEDS: TAMSULOSIN HCL 0.4 MG CAP PO SCH (08:43)
[2022-12-21 09:14] LABS: HEMATOCRIT 25.8 % (35.4-49); HEMOGLOBIN 8.3 GM/dL (11.7-16.9); MCH 26.6 pg (25.7-33.7); MCHC 32.2 g/dl (32.0-35.9); MEAN CELL VOLUME 82.4 fl (80-96); MEAN PLT VOLUME 8.9 fl (7.5-11.1); PLATELET COUNT 320 10^3/uL (134-434); RBC 3.14 M/mm3 (4.00-5.60); RDW 16.1 % (11.9-15.9); WHITE BLOOD COUNT 9.2 K/mm3 (4.0-10.0)
[2022-12-21 09:37] LABS: CHLORIDE 116 mmol/L (98-107); SODIUM 147 mmol/L (136-145)
[2022-12-21 09:53] LABS: GLUCOSE,RANDOM 154 mg/dL (74-106)
[2022-12-21 09:55] LABS: BLOOD UREA NITROGEN 14.8 mg/dL (7-18); PHOSPHOROUS 3.4 mg/dL (2.5-4.9)
[2022-12-21 09:56] LABS: CO2 20 mmol/L (21-32); CREATININE 1.7 mg/dL (0.55-1.3); MAGNESIUM 1.7 mg/dL (1.8-2.4)
[2022-12-21 09:57] LABS: CALCIUM 7.3 mg/dL (8.5-10.1)
[2022-12-21 10:01] LABS: ANION GAP 11 MMOL/L (8-16); POTASSIUM 2.8 mmol/L (3.5-5.1)
[2022-12-21] MEDS: PANTOPRAZOLE SODIUM 40 MG VIAL IVPUSH SCH ×2 (10:28→23:03)
[2022-12-21] MEDS: AMIODARONE HCL 200 MG TABLET PO SCH (10:28)
[2022-12-21] MEDS: METOPROLOL TARTRATE 25 MG TABLET (FP) PO SCH ×2 (10:28→23:01)
[2022-12-21] MEDS: FLUoxetine HCL 10 MG CAPSULE PO SCH (10:28)
[2022-12-21] MEDS: FINASTERIDE 5 MG TABLET (FP) PO SCH (10:28)
[2022-12-21] MEDS: MULTIVIT-MINERALS ORAL LIQUID PO SCH (10:29)
[2022-12-21] MEDS: ARIPiprazole 10 MG TABLET PO SCH (10:29)
[2022-12-21] MEDS: ASCORBIC ACID 500 MG/5 ML UNIT DOSE CUP PO SCH (10:29)
[2022-12-21] MEDS: POLYETHYLENE GLYCOL (HEALTHYLAX) 3350 17 GM PACKET PO SCH (10:33)
[2022-12-21] MEDS: POTASSIUM CHLORIDE ORAL LIQUID 20 MEQ/15 ML PO SCH ×2 (10:55→23:03)
[2022-12-21] MEDS ORDERED: MAGNESIUM OXIDE 400 MG TABLET (FP) PO ONE ×2 (12:00→15:00)
[2022-12-21] MEDS ORDERED: INSULIN (NOVOLOG) ASPART 100 UNITS/ML 10ML VIAL ONE (12:05)
[2022-12-21] MEDS: POTASSIUM CHLORIDE 10 MEQ in SODIUM CHLORIDE 0.45% 1,000 ML IVPB SCH (16:33)
[2022-12-21] MEDS: TRIMETHOBENZAMIDE HCL 200MG/2ML INJ IM PRN (19:12)
[2022-12-21] MEDS: SENNOSIDES 8.6MG TABLET (FP) PO SCH (22:44)
[2022-12-21] MEDS: ROSUVASTATIN CA 20 MG TABLET PO SCH (23:01)
[2022-12-21] MEDS: MELATONIN 5 MG TABLETS PO SCH (23:08)
[2022-12-22] MEDS: INSULIN SLIDING SCALE (NOVOLOG) 1 VIAL SQ SCH ×4 (06:11→22:15)
[2022-12-22 09:27] LABS: BASO % 0.3 % (0-2.0); EOS % 1.2 % (0-4.5); HEMATOCRIT 24.6 % (35.4-49); HEMOGLOBIN 7.9 GM/dL (11.7-16.9); LYMPH % 25.5 % (8-40); MCH 26.5 pg (25.7-33.7); MEAN CELL VOLUME 82.7 fl (80-96); MEAN PLT VOLUME 8.4 fl (7.5-11.1); MONO % 4.6 % (3.8-10.2); NEUT % 68.4 % (42.8-82.8); PLATELET COUNT 300 10^3/uL (134-434); RBC 2.97 M/mm3 (4.00-5.60); WHITE BLOOD COUNT 7.8 K/mm3 (4.0-10.0)
[2022-12-22] MEDS: PANTOPRAZOLE SODIUM 40 MG VIAL IVPUSH SCH ×2 (10:07→21:44)
[2022-12-22] MEDS: AMINO ACIDS/PROTEIN HYDROLYS 30 ML LIQUID.PKT PO SCH ×3 (10:09→17:40)
[2022-12-22] MEDS: MULTIVIT-MINERALS ORAL LIQUID PO SCH (10:14)
[2022-12-22] MEDS: FLUoxetine HCL 10 MG CAPSULE PO SCH (10:14)
[2022-12-22] MEDS: METOPROLOL TARTRATE 25 MG TABLET (FP) PO SCH ×2 (10:14→21:44)
[2022-12-22] MEDS: ARIPiprazole 10 MG TABLET PO SCH (10:14)
[2022-12-22] MEDS: FINASTERIDE 5 MG TABLET (FP) PO SCH (10:14)
[2022-12-22] MEDS: AMIODARONE HCL 200 MG TABLET PO SCH (10:14)
[2022-12-22] MEDS: ASCORBIC ACID 500 MG/5 ML UNIT DOSE CUP PO SCH (10:15)
[2022-12-22] MEDS: TAMSULOSIN HCL 0.4 MG CAP PO SCH (10:15)
[2022-12-22 10:19] LABS: CHLORIDE 117 mmol/L (98-107); SODIUM 149 mmol/L (136-145)
[2022-12-22 10:27] LABS: CALCIUM 7.5 mg/dL (8.5-10.1)
[2022-12-22 10:28] LABS: ALBUMIN 1.4 g/dl (3.4-5.0); BLOOD UREA NITROGEN 15.6 mg/dL (7-18); CO2 22 mmol/L (21-32); GLUCOSE,RANDOM 140 mg/dL (74-106); MAGNESIUM 1.7 mg/dL (1.8-2.4)
[2022-12-22 10:29] LABS: CREATININE 1.8 mg/dL (0.55-1.3); SGPT/ALT 15 U/L (13-61)
[2022-12-22 10:30] LABS: SGOT/AST 18 U/L (15-37)
[2022-12-22 10:31] LABS: BILIRUBIN,TOTAL 0.3 mg/dL (0.2-1); TOT PROT 4.1 g/dl (6.4-8.2)
[2022-12-22 10:32] LABS: ALK PHOS 258 U/L (45-117)
[2022-12-22 10:42] LABS: ANION GAP 10 MMOL/L (8-16); POTASSIUM 2.3 mmol/L (3.5-5.1)
[2022-12-22] MEDS: POTASSIUM CHLORIDE TABS 20 MEQ TABLET.ER (FP) PO SCH ×2 (12:07→21:44)
[2022-12-22] MEDS ORDERED: LACTATED RINGERS SOLUTION 1,000 ML/1,000 ML INFUS.BAG IV STA (15:08)
[2022-12-22] MEDS ORDERED: KCL 10 MEQ IVPB 10 MEQ/100 ML INFUS.BAG IVPB SCH (15:15)
[2022-12-22] MEDS ORDERED: LACTATED RINGERS SOLUTION 1,000 ML/1,000 ML INFUS.BAG IV SCH (16:10)
[2022-12-22] MEDS: POTASSIUM CHLORIDE 10 MEQ in SODIUM CHLORIDE 0.45% 1,000 ML IVPB SCH (17:19)
[2022-12-22 19:22] LABS: CHLORIDE 116 mmol/L (98-107); SODIUM 148 mmol/L (136-145)
[2022-12-22 19:23] LABS: CALCIUM 7.4 mg/dL (8.5-10.1)
[2022-12-22 19:24] LABS: BLOOD UREA NITROGEN 12.6 mg/dL (7-18); CO2 23 mmol/L (21-32); GLUCOSE,RANDOM 199 mg/dL (74-106)
[2022-12-22 19:27] LABS: CREATININE 1.7 mg/dL (0.55-1.3)
[2022-12-22 19:29] LABS: ANION GAP 9 MMOL/L (8-16); POTASSIUM 2.5 mmol/L (3.5-5.1)
[2022-12-22] MEDS ORDERED: POTASSIUM CHLORIDE ORAL LIQUID 20 MEQ/15 ML PO ONE (21:18)
[2022-12-22] MEDS ORDERED: INSULIN (NOVOLOG) ASPART 100 UNITS/ML 10ML VIAL ONE (21:37)
[2022-12-22] MEDS: ROSUVASTATIN CA 20 MG TABLET PO SCH (21:44)
[2022-12-22] MEDS: MELATONIN 5 MG TABLETS PO SCH (21:45)
[2022-12-22] MEDS ORDERED: POTASSIUM CHLORIDE TABS 20 MEQ TABLET.ER (FP) PO ONE (22:03)
[2022-12-23] MEDS: INSULIN SLIDING SCALE (NOVOLOG) 1 VIAL SQ SCH ×4 (07:03→22:18)
[2022-12-23] MEDS: TAMSULOSIN HCL 0.4 MG CAP PO SCH (08:31)
[2022-12-23] MEDS: METOPROLOL TARTRATE 25 MG TABLET (FP) PO SCH ×2 (10:30→21:05)
[2022-12-23] MEDS: PANTOPRAZOLE SODIUM 40 MG VIAL IVPUSH SCH ×2 (10:30→21:05)
[2022-12-23] MEDS: POTASSIUM CHLORIDE TABS 20 MEQ TABLET.ER (FP) PO SCH ×2 (10:30→21:04)
[2022-12-23] MEDS: AMINO ACIDS/PROTEIN HYDROLYS 30 ML LIQUID.PKT PO SCH ×2 (10:30→16:53)
[2022-12-23] MEDS: FINASTERIDE 5 MG TABLET (FP) PO SCH (10:30)
[2022-12-23] MEDS: ASCORBIC ACID 500 MG/5 ML UNIT DOSE CUP PO SCH (10:32)
[2022-12-23] MEDS: ARIPiprazole 10 MG TABLET PO SCH (10:32)
[2022-12-23] MEDS: FLUoxetine HCL 10 MG CAPSULE PO SCH (10:32)
[2022-12-23] MEDS: AMIODARONE HCL 200 MG TABLET PO SCH (10:32)
[2022-12-23] MEDS: MULTIVIT-MINERALS ORAL LIQUID PO SCH (10:32)
[2022-12-23] MEDS: POTASSIUM CHLORIDE 10 MEQ in SODIUM CHLORIDE 0.45% 1,000 ML IVPB SCH (11:16)
[2022-12-23 11:19] LABS: BASO % 0.4 % (0-2.0); EOS % 1.2 % (0-4.5); HEMATOCRIT 23.3 % (35.4-49); HEMOGLOBIN 7.3 GM/dL (11.7-16.9); LYMPH % 25.6 % (8-40); MCH 25.6 pg (25.7-33.7); MCHC 31.4 g/dl (32.0-35.9); MEAN CELL VOLUME 81.6 fl (80-96); MONO % 5.3 % (3.8-10.2); NEUT % 67.5 % (42.8-82.8); PLATELET COUNT 279 10^3/uL (134-434); RBC 2.85 M/mm3 (4.00-5.60); WHITE BLOOD COUNT 6.7 K/mm3 (4.0-10.0)
[2022-12-23 11:56] LABS: CALCIUM 7.2 mg/dL (8.5-10.1)
[2022-12-23 11:57] LABS: BLOOD UREA NITROGEN 10.8 mg/dL (7-18); MAGNESIUM 1.7 mg/dL (1.8-2.4)
[2022-12-23 11:58] LABS: ALBUMIN 1.4 g/dl (3.4-5.0)
[2022-12-23 12:00] LABS: CREATININE 1.6 mg/dL (0.55-1.3); PHOSPHOROUS 2.3 mg/dL (2.5-4.9)
[2022-12-23 12:02] LABS: BILIRUBIN,TOTAL 0.4 mg/dL (0.2-1)
[2022-12-23] MEDS ORDERED: MAGNESIUM SULF 50% (8.12 MEQ/2 ML-1 GM VIAL) IVPB ONE (12:57)
[2022-12-23] MEDS ORDERED: LACTATED RINGERS SOLUTION 1,000 ML/1,000 ML INFUS.BAG IV STA ×2 (13:02→13:34)
[2022-12-23] MEDS: NAPH,MB-DB/K PH,MBDB POWDER PACKET PO SCH ×2 (14:01→21:03)
[2022-12-23] MEDS ORDERED: POTASSIUM PHOSPHATE IVPB SCH ×2 (15:45→17:48)
[2022-12-23] MEDS ORDERED: SODIUM CHLORIDE 0.45% IVPB SCH (15:45)
[2022-12-23] MEDS ORDERED: SODIUM CHLORIDE IVPB SCH (17:48)
[2022-12-23] MEDS: ACETAMINOPHEN 1000 MG/100 ML BAG IVPB PRN (21:01)
[2022-12-23] MEDS: MELATONIN 5 MG TABLETS PO SCH (21:04)
[2022-12-23] MEDS: ROSUVASTATIN CA 20 MG TABLET PO SCH (21:04)
[2022-12-23 21:05] LABS: POTASSIUM 3.5 mmol/L (3.5-5.1)
[2022-12-23 21:07] LABS: BLOOD UREA NITROGEN 9.2 mg/dL (7-18)
[2022-12-23 21:10] LABS: CREATININE 1.5 mg/dL (0.55-1.3); PHOSPHOROUS 3.5 mg/dL (2.5-4.9)
[2022-12-24] MEDS: ACETAMINOPHEN 1000 MG/100 ML BAG IVPB PRN ×2 (03:30→13:06)
[2022-12-24] MEDS: INSULIN SLIDING SCALE (NOVOLOG) 1 VIAL SQ SCH ×4 (06:18→21:53)
[2022-12-24] MEDS: NAPH,MB-DB/K PH,MBDB POWDER PACKET PO SCH (06:20)
[2022-12-24] MEDS: TAMSULOSIN HCL 0.4 MG CAP PO SCH (08:42)
[2022-12-24] MEDS: AMINO ACIDS/PROTEIN HYDROLYS 30 ML LIQUID.PKT PO SCH ×2 (09:30→16:41)
[2022-12-24] MEDS: ASCORBIC ACID 500 MG/5 ML UNIT DOSE CUP PO SCH (09:30)
[2022-12-24] MEDS: PANTOPRAZOLE SODIUM 40 MG VIAL IVPUSH SCH ×2 (09:41→21:51)
[2022-12-24] MEDS: FINASTERIDE 5 MG TABLET (FP) PO SCH (09:41)
[2022-12-24] MEDS: METOPROLOL TARTRATE 25 MG TABLET (FP) PO SCH ×2 (09:41→21:51)
[2022-12-24] MEDS: MULTIVIT-MINERALS ORAL LIQUID PO SCH (09:43)
[2022-12-24] MEDS: FLUoxetine HCL 10 MG CAPSULE PO SCH (09:43)
[2022-12-24] MEDS: ARIPiprazole 10 MG TABLET PO SCH (09:43)
[2022-12-24] MEDS: AMIODARONE HCL 200 MG TABLET PO SCH (09:43)
[2022-12-24 10:33] LABS: BASO % 0.5 % (0-2.0); EOS % 1.6 % (0-4.5); HEMATOCRIT 23.5 % (35.4-49); HEMOGLOBIN 7.4 GM/dL (11.7-16.9); LYMPH % 29.4 % (8-40); MCH 26.3 pg (25.7-33.7); MCHC 31.5 g/dl (32.0-35.9); MEAN CELL VOLUME 83.3 fl (80-96); MEAN PLT VOLUME 8.5 fl (7.5-11.1); MONO % 6.4 % (3.8-10.2); NEUT % 62.1 % (42.8-82.8); PLATELET COUNT 250 10^3/uL (134-434); RBC 2.82 M/mm3 (4.00-5.60); WHITE BLOOD COUNT 6.6 K/mm3 (4.0-10.0)
[2022-12-24 10:57] LABS: POTASSIUM 3.2 mmol/L (3.5-5.1)
[2022-12-24 11:06] LABS: ALBUMIN 1.4 g/dl (3.4-5.0); BLOOD UREA NITROGEN 9.1 mg/dL (7-18); CALCIUM 7.3 mg/dL (8.5-10.1)
[2022-12-24 11:09] LABS: CREATININE 1.5 mg/dL (0.55-1.3)
[2022-12-24 11:11] LABS: BILIRUBIN,TOTAL 0.3 mg/dL (0.2-1)
[2022-12-24] MEDS: POTASSIUM CHLORIDE TABS 20 MEQ TABLET.ER (FP) PO SCH ×2 (12:06→21:51)
[2022-12-24 13:01] LABS: MAGNESIUM 2.2 mg/dL (1.8-2.4)
[2022-12-24] MEDS: DEXTROSE IVPB SCH ×2 (14:50→15:00)
[2022-12-24] MEDS: [UNRECOGNIZED DRUG - OTHER] IVPB SCH ×2 (14:50→15:00)
[2022-12-24] MEDS: POTASSIUM PHOSPHATE IVPB SCH ×2 (14:50→15:00)
[2022-12-24] MEDS ORDERED: INSULIN (NOVOLOG) ASPART 100 UNITS/ML 10ML VIAL ONE (21:03)
[2022-12-24] MEDS: MELATONIN 5 MG TABLETS PO SCH (21:51)
[2022-12-24] MEDS: ROSUVASTATIN CA 20 MG TABLET PO SCH (21:51)
[2022-12-25 02:38] LABS: POTASSIUM 3.1 mmol/L (3.5-5.1)
[2022-12-25 02:40] LABS: BLOOD UREA NITROGEN 9.5 mg/dL (7-18); CALCIUM 7.3 mg/dL (8.5-10.1)
[2022-12-25 02:44] LABS: CREATININE 1.6 mg/dL (0.55-1.3)
[2022-12-25] MEDS: HEPARIN NA (PORCINE) 5,000 UNITS/ML 1ML VIAL SQ SCH ×3 (06:04→21:57)
[2022-12-25] MEDS: INSULIN SLIDING SCALE (NOVOLOG) 1 VIAL SQ SCH ×4 (06:04→22:18)
[2022-12-25 08:03] LABS: BASO % 0.5 % (0-2.0); EOS % 2.5 % (0-4.5); HEMATOCRIT 23.4 % (35.4-49); HEMOGLOBIN 7.6 GM/dL (11.7-16.9); LYMPH % 23.4 % (8-40); MCH 26.5 pg (25.7-33.7); MCHC 32.3 g/dl (32.0-35.9); MEAN PLT VOLUME 7.9 fl (7.5-11.1); MONO % 5.5 % (3.8-10.2); NEUT % 68.1 % (42.8-82.8); PLATELET COUNT 248 10^3/uL (134-434); RBC 2.86 M/mm3 (4.00-5.60); RDW 16.3 % (11.9-15.9); WHITE BLOOD COUNT 6.7 K/mm3 (4.0-10.0)
[2022-12-25 08:21] LABS: POTASSIUM 3.2 mmol/L (3.5-5.1)
[2022-12-25 08:30] LABS: CALCIUM 7.5 mg/dL (8.5-10.1)
[2022-12-25 08:31] LABS: ALBUMIN 1.4 g/dl (3.4-5.0); BLOOD UREA NITROGEN 9.8 mg/dL (7-18); MAGNESIUM 2.1 mg/dL (1.8-2.4)
[2022-12-25 08:32] LABS: BILIRUBIN,TOTAL 0.2 mg/dL (0.2-1); TOT PROT 4.1 g/dl (6.4-8.2)
[2022-12-25 08:34] LABS: CREATININE 1.6 mg/dL (0.55-1.3); PHOSPHOROUS 2.7 mg/dL (2.5-4.9)
[2022-12-25] MEDS: TAMSULOSIN HCL 0.4 MG CAP PO SCH (08:56)
[2022-12-25] MEDS: AMINO ACIDS/PROTEIN HYDROLYS 30 ML LIQUID.PKT PO SCH ×2 (08:58→17:11)
[2022-12-25] MEDS: PANTOPRAZOLE SODIUM 40 MG VIAL IVPUSH SCH ×2 (09:23→21:57)
[2022-12-25] MEDS: METOPROLOL TARTRATE 25 MG TABLET (FP) PO SCH ×2 (09:23→22:00)
[2022-12-25] MEDS: FINASTERIDE 5 MG TABLET (FP) PO SCH (09:23)
[2022-12-25] MEDS: FLUoxetine HCL 10 MG CAPSULE PO SCH (09:24)
[2022-12-25] MEDS: MULTIVIT-MINERALS ORAL LIQUID PO SCH (09:25)
[2022-12-25] MEDS: AMIODARONE HCL 200 MG TABLET PO SCH (09:25)
[2022-12-25] MEDS: ARIPiprazole 10 MG TABLET PO SCH (09:25)
[2022-12-25] MEDS: ASCORBIC ACID 500 MG/5 ML UNIT DOSE CUP PO SCH (09:26)
[2022-12-25] MEDS ORDERED: POTASSIUM CHLORIDE TABS 20 MEQ TABLET.ER (FP) PO SCH (10:00)
[2022-12-25] MEDS: POTASSIUM CHLORIDE TABS 20 MEQ TABLET.ER (FP) PO SCH ×2 (11:11→21:57)
[2022-12-25] MEDS: DEXTROSE 5%-WATER - 1,000 ML IV SCH (11:12)
[2022-12-25] MEDS: ACETAMINOPHEN 1000 MG/100 ML BAG IVPB PRN ×2 (11:12→18:03)
[2022-12-25] MEDS ORDERED: INSULIN (NOVOLOG) ASPART 100 UNITS/ML 10ML VIAL ONE (17:10)
[2022-12-25] MEDS: MELATONIN 5 MG TABLETS PO SCH (21:57)
[2022-12-25] MEDS: ROSUVASTATIN CA 20 MG TABLET PO SCH (21:57)
[2022-12-26] MEDS: ACETAMINOPHEN 1000 MG/100 ML BAG IVPB PRN ×2 (00:21→06:15)
[2022-12-26] MEDS: HEPARIN NA (PORCINE) 5,000 UNITS/ML 1ML VIAL SQ SCH ×3 (06:16→22:14)
[2022-12-26] MEDS: INSULIN SLIDING SCALE (NOVOLOG) 1 VIAL SQ SCH ×4 (06:16→22:33)
[2022-12-26] MEDS: AMINO ACIDS/PROTEIN HYDROLYS 30 ML LIQUID.PKT PO SCH ×2 (08:28→17:11)
[2022-12-26] MEDS: TAMSULOSIN HCL 0.4 MG CAP PO SCH (08:29)
[2022-12-26 08:45] LABS: HEMATOCRIT 23.5 % (35.4-49); HEMOGLOBIN 7.5 GM/dL (11.7-16.9); MCH 26.6 pg (25.7-33.7); MCHC 31.7 g/dl (32.0-35.9); MEAN CELL VOLUME 83.9 fl (80-96); MEAN PLT VOLUME 8.3 fl (7.5-11.1); PLATELET COUNT 238 10^3/uL (134-434); RBC 2.81 M/mm3 (4.00-5.60); RDW 16.4 % (11.9-15.9); WHITE BLOOD COUNT 6.4 K/mm3 (4.0-10.0)
[2022-12-26 09:05] LABS: POTASSIUM 3.2 mmol/L (3.5-5.1)
[2022-12-26 09:11] LABS: BLOOD UREA NITROGEN 12.2 mg/dL (7-18); CALCIUM 7.2 mg/dL (8.5-10.1); MAGNESIUM 1.9 mg/dL (1.8-2.4)
[2022-12-26 09:14] LABS: CREATININE 1.6 mg/dL (0.55-1.3); PHOSPHOROUS 2.6 mg/dL (2.5-4.9)
[2022-12-26] MEDS: FINASTERIDE 5 MG TABLET (FP) PO SCH (10:42)
[2022-12-26] MEDS: POTASSIUM CHLORIDE TABS 20 MEQ TABLET.ER (FP) PO SCH ×2 (10:42→22:14)
[2022-12-26] MEDS: ASCORBIC ACID 500 MG TABLET (FP) PO SCH (10:42)
[2022-12-26] MEDS: ARIPiprazole 10 MG TABLET PO SCH (10:43)
[2022-12-26] MEDS: FLUoxetine HCL 10 MG CAPSULE PO SCH (10:43)
[2022-12-26] MEDS: MULTIVIT-MINERALS ORAL LIQUID PO SCH (10:44)
[2022-12-26] MEDS: AMIODARONE HCL 200 MG TABLET PO SCH (10:44)
[2022-12-26] MEDS: PANTOPRAZOLE SODIUM 40 MG VIAL IVPUSH SCH ×2 (10:44→22:14)
[2022-12-26] MEDS: METOPROLOL TARTRATE 25 MG TABLET (FP) PO SCH ×2 (11:01→22:21)
[2022-12-26] MEDS ORDERED: NAPH,MB-DB/K PH,MBDB POWDER PACKET PO ONE (11:18)
[2022-12-26] MEDS: DEXTROSE 5%-WATER - 1,000 ML IV SCH (11:30)
[2022-12-26] MEDS ORDERED: ACETAMINOPHEN 325 MG TABLET (FP) PO PRN (12:08)
[2022-12-26] MEDS: KETOROLAC TROMETHAMINE 15 MG/ML VIAL IVPUSH PRN (12:20)
[2022-12-26] MEDS ORDERED: ACETAMINOPHEN 1000 MG/100 ML BAG IVPB ONE (19:19)
[2022-12-26] MEDS: ROSUVASTATIN CA 20 MG TABLET PO SCH (22:13)
[2022-12-26] MEDS: MELATONIN 5 MG TABLETS PO SCH (22:13)
[2022-12-27] MEDS: ACETAMINOPHEN 1000 MG/100 ML BAG IVPB PRN ×4 (02:04→20:34)
[2022-12-27] MEDS: HEPARIN NA (PORCINE) 5,000 UNITS/ML 1ML VIAL SQ SCH ×2 (06:55→22:46)
[2022-12-27] MEDS: INSULIN SLIDING SCALE (NOVOLOG) 1 VIAL SQ SCH ×4 (06:56→21:51)
[2022-12-27] MEDS: TAMSULOSIN HCL 0.4 MG CAP PO SCH (08:25)
[2022-12-27] MEDS: AMINO ACIDS/PROTEIN HYDROLYS 30 ML LIQUID.PKT PO SCH ×2 (08:26→17:11)
[2022-12-27 09:01] LABS: BASO % 0.9 % (0-2.0); EOS % 3.1 % (0-4.5); HEMATOCRIT 24.2 % (35.4-49); HEMOGLOBIN 7.5 GM/dL (11.7-16.9); LYMPH % 27.4 % (8-40); MCH 26.2 pg (25.7-33.7); MEAN CELL VOLUME 84.4 fl (80-96); MEAN PLT VOLUME 9.1 fl (7.5-11.1); MONO % 4.9 % (3.8-10.2); NEUT % 63.7 % (42.8-82.8); PLATELET COUNT 240 10^3/uL (134-434); RBC 2.87 M/mm3 (4.00-5.60); RDW 16.8 % (11.9-15.9); WHITE BLOOD COUNT 6.7 K/mm3 (4.0-10.0)
[2022-12-27 09:37] LABS: POTASSIUM 3.2 mmol/L (3.5-5.1)
[2022-12-27 09:40] LABS: CALCIUM 7.5 mg/dL (8.5-10.1)
[2022-12-27 09:44] LABS: CREATININE 1.7 mg/dL (0.55-1.3)
[2022-12-27] MEDS: ARIPiprazole 10 MG TABLET PO SCH ×2 (10:04→10:12)
[2022-12-27] MEDS: FLUoxetine HCL 10 MG CAPSULE PO SCH (10:04)
[2022-12-27] MEDS: ASCORBIC ACID 500 MG TABLET (FP) PO SCH (10:04)
[2022-12-27] MEDS: FINASTERIDE 5 MG TABLET (FP) PO SCH (10:04)
[2022-12-27] MEDS: POTASSIUM CHLORIDE TABS 20 MEQ TABLET.ER (FP) PO SCH ×2 (10:04→21:15)
[2022-12-27] MEDS: METOPROLOL TARTRATE 25 MG TABLET (FP) PO SCH ×2 (10:04→21:15)
[2022-12-27] MEDS: AMIODARONE HCL 200 MG TABLET PO SCH (10:04)
[2022-12-27] MEDS: PANTOPRAZOLE SODIUM 40 MG VIAL IVPUSH SCH (10:05)
[2022-12-27] MEDS: MULTIVIT-MINERALS ORAL LIQUID PO SCH (10:05)
[2022-12-27] MEDS: DEXTROSE 5%-WATER - 1,000 ML IV SCH (10:05)
[2022-12-27] MEDS ORDERED: POLYETHYLENE GLYCOL (HEALTHYLAX) 3350 17 GM PACKET PO ONE (14:30)
[2022-12-27] MEDS: TRIMETHOBENZAMIDE HCL 200MG/2ML INJ IM PRN (20:34)
[2022-12-27] MEDS: ROSUVASTATIN CA 20 MG TABLET PO SCH (21:15)
[2022-12-27] MEDS: MELATONIN 5 MG TABLETS PO SCH (21:15)
[2022-12-28] MEDS: KETOROLAC TROMETHAMINE 15 MG/ML VIAL IVPUSH PRN (02:17)
[2022-12-28] MEDS: INSULIN SLIDING SCALE (NOVOLOG) 1 VIAL SQ SCH ×4 (06:19→21:58)
[2022-12-28] MEDS: TAMSULOSIN HCL 0.4 MG CAP PO SCH (09:05)
[2022-12-28] MEDS: AMINO ACIDS/PROTEIN HYDROLYS 30 ML LIQUID.PKT PO SCH ×2 (09:08→18:15)
[2022-12-28] MEDS ORDERED: ACETAMINOPHEN 1000 MG/100 ML BAG IVPB ONE (12:15)
[2022-12-28 12:35] LABS: HEMATOCRIT 26.4 % (35.4-49); HEMOGLOBIN 8.4 GM/dL (11.7-16.9); MCH 26.9 pg (25.7-33.7); MEAN PLT VOLUME 8.8 fl (7.5-11.1); PLATELET COUNT 224 10^3/uL (134-434); RBC 3.14 M/mm3 (4.00-5.60); RDW 16.7 % (11.9-15.9); WHITE BLOOD COUNT 6.1 K/mm3 (4.0-10.0)
[2022-12-28 12:59] LABS: CHLORIDE 124 mmol/L (98-107); SODIUM 147 mmol/L (136-145)
[2022-12-28 13:01] LABS: CALCIUM 7.8 mg/dL (8.5-10.1)
[2022-12-28 13:02] LABS: CO2 17 mmol/L (21-32); GLUCOSE,RANDOM 108 mg/dL (74-106)
[2022-12-28 13:05] LABS: CREATININE 1.9 mg/dL (0.55-1.3)
[2022-12-28 13:25] LABS: ANION GAP 6 MMOL/L (8-16); POTASSIUM 2.9 mmol/L (3.5-5.1)
[2022-12-28] MEDS ORDERED: POTASSIUM PHOSPHATE 10 MM in SODIUM CHLORIDE 250 ML IVPB ONE (14:31)
[2022-12-28] MEDS ORDERED: NAPH,MB-DB/K PH,MBDB POWDER PACKET PO ONE (15:00)
[2022-12-28] MEDS: MULTIVIT-MINERALS ORAL LIQUID PO SCH (15:09)
[2022-12-28] MEDS: ARIPiprazole 10 MG TABLET PO SCH (15:09)
[2022-12-28] MEDS: AMIODARONE HCL 200 MG TABLET PO SCH (15:09)
[2022-12-28] MEDS: METOPROLOL TARTRATE 25 MG TABLET (FP) PO SCH ×2 (15:10→21:49)
[2022-12-28] MEDS: PANTOPRAZOLE 40 MG TABLET PO SCH (15:10)
[2022-12-28] MEDS: FLUoxetine HCL 10 MG CAPSULE PO SCH (15:10)
[2022-12-28] MEDS: FINASTERIDE 5 MG TABLET (FP) PO SCH (15:10)
[2022-12-28] MEDS: ASCORBIC ACID 500 MG TABLET (FP) PO SCH (15:10)
[2022-12-28] MEDS: DEXTROSE 5%-WATER - 1,000 ML IV SCH (15:11)
[2022-12-28] MEDS ORDERED: MIDAZOLAM HCL 2 MG/2 ML SINGLE DOSE VIAL ONE (17:04)
[2022-12-28] MEDS ORDERED: FENTANYL CITRATE/PF 50 MCG/ML VIAL ONE (17:04)
[2022-12-28] MEDS ORDERED: FENTANYL CITRATE/PF 50 MCG/ML VIAL IVPUSH ONE (17:07)
[2022-12-28] MEDS ORDERED: MIDAZOLAM HCL 2 MG/2 ML SINGLE DOSE VIAL IVPUSH ONE (17:30)
[2022-12-28] MEDS: POTASSIUM CHLORIDE TABS 20 MEQ TABLET.ER (FP) PO SCH ×2 (18:15→21:49)
[2022-12-28] MEDS ORDERED: KCL 10 MEQ IVPB 10 MEQ/100 ML INFUS.BAG IVPB SCH (18:30)
[2022-12-28] MEDS: ROSUVASTATIN CA 20 MG TABLET PO SCH (21:48)
[2022-12-28] MEDS: MELATONIN 5 MG TABLETS PO SCH (21:48)
[2022-12-29] MEDS: INSULIN SLIDING SCALE (NOVOLOG) 1 VIAL SQ SCH ×4 (06:35→21:36)
[2022-12-29] MEDS: ACETAMINOPHEN 1000 MG/100 ML BAG IVPB PRN ×3 (06:39→21:28)
[2022-12-29] MEDS: TAMSULOSIN HCL 0.4 MG CAP PO SCH (08:38)
[2022-12-29] MEDS: AMINO ACIDS/PROTEIN HYDROLYS 30 ML LIQUID.PKT PO SCH ×2 (08:40→19:06)
[2022-12-29] MEDS: ARIPiprazole 10 MG TABLET PO SCH (10:24)
[2022-12-29 10:25] LABS: HEMATOCRIT 24.1 % (35.4-49); HEMOGLOBIN 7.9 GM/dL (11.7-16.9); MCH 27.1 pg (25.7-33.7); MCHC 32.6 g/dl (32.0-35.9); MEAN PLT VOLUME 8.3 fl (7.5-11.1); PLATELET COUNT 224 10^3/uL (134-434); RDW 17.5 % (11.9-15.9); WHITE BLOOD COUNT 6.2 K/mm3 (4.0-10.0)
[2022-12-29] MEDS: POTASSIUM CHLORIDE TABS 20 MEQ TABLET.ER (FP) PO SCH (10:25)
[2022-12-29] MEDS: AMIODARONE HCL 200 MG TABLET PO SCH (10:25)
[2022-12-29] MEDS: MULTIVIT-MINERALS ORAL LIQUID PO SCH (10:25)
[2022-12-29] MEDS: FINASTERIDE 5 MG TABLET (FP) PO SCH (10:26)
[2022-12-29] MEDS: METOPROLOL TARTRATE 25 MG TABLET (FP) PO SCH ×2 (10:26→21:27)
[2022-12-29] MEDS: FLUoxetine HCL 10 MG CAPSULE PO SCH (10:27)
[2022-12-29] MEDS: PANTOPRAZOLE 40 MG TABLET PO SCH (10:27)
[2022-12-29] MEDS: ASCORBIC ACID 500 MG TABLET (FP) PO SCH (10:28)
[2022-12-29 10:41] LABS: CHLORIDE 123 mmol/L (98-107); SODIUM 148 mmol/L (136-145)
[2022-12-29 10:45] LABS: GLUCOSE,RANDOM 154 mg/dL (74-106)
[2022-12-29 10:46] LABS: BLOOD UREA NITROGEN 12.4 mg/dL (7-18); CO2 18 mmol/L (21-32)
[2022-12-29 10:47] LABS: CALCIUM 7.4 mg/dL (8.5-10.1); MAGNESIUM 1.8 mg/dL (1.8-2.4)
[2022-12-29 11:03] LABS: ANION GAP 7 MMOL/L (8-16); POTASSIUM 2.6 mmol/L (3.5-5.1)
[2022-12-29] MEDS ORDERED: SODIUM CHLORIDE 0.45%/POT 20 MEQ/1,000 ML INFUS.BAG IV SCH (13:45)
[2022-12-29 13:49] LABS: EPI CELLS 9 /uL (0-25.1); HYALINE CASTS 7 /uL (0-3.1); URINE APPEARANCE CLOUDY; URINE BACTERIA 19 /uL (0-1359); URINE BILIRUBIN NEGATIVE (NEGATIVE); URINE COLOR YELLOW; URINE GLUCOSE (UA) NEGATIVE (NEGATIVE); URINE KETONE NEGATIVE (NEGATIVE); URINE LEUK ESTERASE 2+ (NEGATIVE); URINE NITRITE NEGATIVE (NEGATIVE); URINE PROTEIN 2+ (NEGATIVE); URINE RBC 2709 /uL (0-23.9); URINE UROBILINOGEN 0.2 mg/dL (0.2-1.0); URINE WBC 856 /uL (0-25.8)
[2022-12-29] MEDS ORDERED: POTASSIUM CHLORIDE TABS 20 MEQ TABLET.ER (FP) PO SCH (14:00)
[2022-12-29] MEDS: HEPARIN NA (PORCINE) 5,000 UNITS/ML 1ML VIAL SQ SCH ×2 (14:16→21:28)
[2022-12-29] MEDS: KCL 10 MEQ IVPB 10 MEQ/100 ML INFUS.BAG IVPB SCH ×2 (14:33→15:28)
[2022-12-29] MEDS: CEFTRIAXONE 1 GM in DEXTROSE 5%-WATER - 50 ML IVPB SCH (18:41)
[2022-12-29] MEDS ORDERED: ACETAMINOPHEN 325 MG TABLET (FP) PO PRN (21:10)
[2022-12-29] MEDS: MELATONIN 5 MG TABLETS PO SCH (21:27)
[2022-12-29] MEDS: ROSUVASTATIN CA 20 MG TABLET PO SCH (21:28)
[2022-12-29] MEDS ORDERED: INSULIN (NOVOLOG) ASPART 100 UNITS/ML 10ML VIAL ONE (21:44)
[2022-12-30] MEDS: ACETAMINOPHEN 1000 MG/100 ML BAG IVPB PRN ×2 (03:48→11:24)
[2022-12-30] MEDS: HEPARIN NA (PORCINE) 5,000 UNITS/ML 1ML VIAL SQ SCH ×3 (06:43→21:40)
[2022-12-30] MEDS: INSULIN SLIDING SCALE (NOVOLOG) 1 VIAL SQ SCH ×4 (06:44→22:02)
[2022-12-30] MEDS: TAMSULOSIN HCL 0.4 MG CAP PO SCH (10:07)
[2022-12-30] MEDS: FLUoxetine HCL 10 MG CAPSULE PO SCH (10:07)
[2022-12-30] MEDS: METOPROLOL TARTRATE 25 MG TABLET (FP) PO SCH ×2 (10:07→21:41)
[2022-12-30] MEDS: POTASSIUM CHLORIDE TABS 20 MEQ TABLET.ER (FP) PO SCH ×2 (10:07→21:41)
[2022-12-30] MEDS: ARIPiprazole 10 MG TABLET PO SCH (10:07)
[2022-12-30] MEDS: CEFTRIAXONE 1 GM in DEXTROSE 5%-WATER - 50 ML IVPB SCH (10:08)
[2022-12-30] MEDS: FINASTERIDE 5 MG TABLET (FP) PO SCH (10:08)
[2022-12-30] MEDS: AMIODARONE HCL 200 MG TABLET PO SCH (10:08)
[2022-12-30] MEDS: ASCORBIC ACID 500 MG TABLET (FP) PO SCH (10:08)
[2022-12-30] MEDS: AMINO ACIDS/PROTEIN HYDROLYS 30 ML LIQUID.PKT PO SCH ×2 (10:08→18:16)
[2022-12-30] MEDS: PANTOPRAZOLE 40 MG TABLET PO SCH (10:08)
[2022-12-30] MEDS: MULTIVIT-MINERALS ORAL LIQUID PO SCH (10:09)
[2022-12-30 10:34] LABS: HEMATOCRIT 25.2 % (35.4-49); HEMOGLOBIN 7.9 GM/dL (11.7-16.9); MCH 26.5 pg (25.7-33.7); MCHC 31.3 g/dl (32.0-35.9); MEAN CELL VOLUME 84.6 fl (80-96); MEAN PLT VOLUME 8.4 fl (7.5-11.1); PLATELET COUNT 203 10^3/uL (134-434); RBC 2.98 M/mm3 (4.00-5.60); RDW 17.8 % (11.9-15.9); WHITE BLOOD COUNT 7.5 K/mm3 (4.0-10.0)
[2022-12-30 10:44] LABS: CHLORIDE 123 mmol/L (98-107); SODIUM 148 mmol/L (136-145)
[2022-12-30 10:46] LABS: ALBUMIN 1.6 g/dl (3.4-5.0); BLOOD UREA NITROGEN 13.4 mg/dL (7-18); CALCIUM 7.6 mg/dL (8.5-10.1); CO2 17 mmol/L (21-32); GLUCOSE,RANDOM 159 mg/dL (74-106); MAGNESIUM 1.8 mg/dL (1.8-2.4)
[2022-12-30 10:49] LABS: CREATININE 1.9 mg/dL (0.55-1.3); PHOSPHOROUS 3.5 mg/dL (2.5-4.9); SGOT/AST 16 U/L (15-37); SGPT/ALT 18 U/L (13-61)
[2022-12-30 10:51] LABS: BILIRUBIN,TOTAL 0.2 mg/dL (0.2-1); TOT PROT 4.3 g/dl (6.4-8.2)
[2022-12-30 10:52] LABS: ALK PHOS 253 U/L (45-117)
[2022-12-30 11:26] LABS: ANION GAP 8 MMOL/L (8-16); POTASSIUM 2.4 mmol/L (3.5-5.1)
[2022-12-30] MEDS: KCL 10 MEQ IVPB 10 MEQ/100 ML INFUS.BAG IVPB SCH ×7 (12:25→23:24)
[2022-12-30] MEDS ORDERED: MAGNESIUM 2GM/50ML STERILE WATER IVPB IVPB ONE (12:30)
[2022-12-30 18:01] LABS: POTASSIUM 2.9 mmol/L (3.5-5.1)
[2022-12-30] MEDS: ROSUVASTATIN CA 20 MG TABLET PO SCH (21:41)
[2022-12-30] MEDS: MELATONIN 5 MG TABLETS PO SCH (21:41)
[2022-12-30] MEDS ORDERED: POTASSIUM CHLORIDE ORAL LIQUID 20 MEQ/15 ML PO ONE (22:58)
[2022-12-30] MEDS ORDERED: POTASSIUM CHLORIDE TABS 10 MEQ TABLET.ER (FP) PO ONE (22:58)
[2022-12-31] MEDS: KCL 10 MEQ IVPB 10 MEQ/100 ML INFUS.BAG IVPB SCH ×2 (00:24→00:27)
[2022-12-31] MEDS: ACETAMINOPHEN 1000 MG/100 ML BAG IVPB PRN ×3 (05:32→22:18)
[2022-12-31] MEDS: HEPARIN NA (PORCINE) 5,000 UNITS/ML 1ML VIAL SQ SCH ×3 (05:32→22:20)
[2022-12-31] MEDS: INSULIN SLIDING SCALE (NOVOLOG) 1 VIAL SQ SCH ×4 (06:16→22:20)
[2022-12-31] MEDS: TAMSULOSIN HCL 0.4 MG CAP PO SCH (08:32)
[2022-12-31] MEDS: AMINO ACIDS/PROTEIN HYDROLYS 30 ML LIQUID.PKT PO SCH ×2 (08:36→17:53)
[2022-12-31 10:13] LABS: HEMATOCRIT 25.5 % (35.4-49); HEMOGLOBIN 8.2 GM/dL (11.7-16.9); MCH 27.2 pg (25.7-33.7); MEAN CELL VOLUME 85.2 fl (80-96); MEAN PLT VOLUME 8.5 fl (7.5-11.1); PLATELET COUNT 201 10^3/uL (134-434); RBC 2.99 M/mm3 (4.00-5.60); WHITE BLOOD COUNT 6.7 K/mm3 (4.0-10.0)
[2022-12-31] MEDS ORDERED: cefTRIAXone SODIUM 1 GM VIAL ONE (10:37)
[2022-12-31] MEDS: MULTIVIT-MINERALS ORAL LIQUID PO SCH (10:43)
[2022-12-31] MEDS: ARIPiprazole 10 MG TABLET PO SCH (10:43)
[2022-12-31] MEDS: POTASSIUM CHLORIDE TABS 20 MEQ TABLET.ER (FP) PO SCH (10:49)
[2022-12-31 10:50] LABS: POTASSIUM 3.2 mmol/L (3.5-5.1)
[2022-12-31] MEDS: METOPROLOL TARTRATE 25 MG TABLET (FP) PO SCH ×2 (10:50→21:57)
[2022-12-31] MEDS: AMIODARONE HCL 200 MG TABLET PO SCH (10:50)
[2022-12-31] MEDS: ASCORBIC ACID 500 MG TABLET (FP) PO SCH (10:50)
[2022-12-31] MEDS: PANTOPRAZOLE 40 MG TABLET PO SCH (10:50)
[2022-12-31] MEDS: FLUoxetine HCL 10 MG CAPSULE PO SCH (10:50)
[2022-12-31] MEDS: FINASTERIDE 5 MG TABLET (FP) PO SCH (10:50)
[2022-12-31] MEDS: CEFTRIAXONE 1 GM in DEXTROSE 5%-WATER - 50 ML IVPB SCH (10:51)
[2022-12-31 10:53] LABS: CALCIUM 7.8 mg/dL (8.5-10.1)
[2022-12-31 10:54] LABS: ALBUMIN 1.6 g/dl (3.4-5.0); BLOOD UREA NITROGEN 11.6 mg/dL (7-18); MAGNESIUM 2.2 mg/dL (1.8-2.4)
[2022-12-31 10:56] LABS: PHOSPHOROUS 2.8 mg/dL (2.5-4.9)
[2022-12-31 10:58] LABS: BILIRUBIN,TOTAL 0.2 mg/dL (0.2-1); TOT PROT 4.4 g/dl (6.4-8.2)
[2022-12-31] MEDS: TRIMETHOBENZAMIDE HCL 200MG/2ML INJ IM PRN ×2 (14:22→14:35)
[2022-12-31] MEDS ORDERED: POTASSIUM CHLORIDE TABS 20 MEQ TABLET.ER (FP) PO ONE ×2 (14:30→18:30)
[2022-12-31] MEDS ORDERED: POTASSIUM CHLORIDE ORAL LIQUID 20 MEQ/15 ML PO ONE (19:08)
[2022-12-31] MEDS: ROSUVASTATIN CA 20 MG TABLET PO SCH (21:58)
[2022-12-31] MEDS: MELATONIN 5 MG TABLETS PO SCH (21:58)
[2023-01-01] MEDS: ACETAMINOPHEN 1000 MG/100 ML BAG IVPB PRN ×3 (04:16→21:46)
[2023-01-01] MEDS: HEPARIN NA (PORCINE) 5,000 UNITS/ML 1ML VIAL SQ SCH ×3 (06:42→21:48)
[2023-01-01] MEDS: INSULIN SLIDING SCALE (NOVOLOG) 1 VIAL SQ SCH ×4 (07:12→21:57)
[2023-01-01 10:03] LABS: HEMATOCRIT 24.2 % (35.4-49); HEMOGLOBIN 7.7 GM/dL (11.7-16.9); MCH 27.1 pg (25.7-33.7); MCHC 31.7 g/dl (32.0-35.9); MEAN CELL VOLUME 85.5 fl (80-96); MEAN PLT VOLUME 8.3 fl (7.5-11.1); PLATELET COUNT 178 10^3/uL (134-434); RBC 2.83 M/mm3 (4.00-5.60); RDW 19.1 % (11.9-15.9); WHITE BLOOD COUNT 5.4 K/mm3 (4.0-10.0)
[2023-01-01 10:19] LABS: CALCIUM 7.6 mg/dL (8.5-10.1)
[2023-01-01 10:20] LABS: ALBUMIN 1.6 g/dl (3.4-5.0); BLOOD UREA NITROGEN 12.1 mg/dL (7-18)
[2023-01-01 10:23] LABS: BILIRUBIN,TOTAL 0.2 mg/dL (0.2-1); TOT PROT 4.4 g/dl (6.4-8.2)
[2023-01-01] MEDS: FLUoxetine HCL 10 MG CAPSULE PO SCH (10:24)
[2023-01-01] MEDS: METOPROLOL TARTRATE 25 MG TABLET (FP) PO SCH ×2 (10:24→21:48)
[2023-01-01] MEDS: AMIODARONE HCL 200 MG TABLET PO SCH (10:24)
[2023-01-01] MEDS: TAMSULOSIN HCL 0.4 MG CAP PO SCH (10:24)
[2023-01-01] MEDS: POTASSIUM CHLORIDE TABS 20 MEQ TABLET.ER (FP) PO SCH ×3 (10:24→21:48)
[2023-01-01] MEDS: ASCORBIC ACID 500 MG TABLET (FP) PO SCH (10:24)
[2023-01-01] MEDS: CEFTRIAXONE 1 GM in DEXTROSE 5%-WATER - 50 ML IVPB SCH (10:24)
[2023-01-01] MEDS: PANTOPRAZOLE 40 MG TABLET PO SCH (10:24)
[2023-01-01] MEDS: FINASTERIDE 5 MG TABLET (FP) PO SCH (10:24)
[2023-01-01] MEDS: ARIPiprazole 10 MG TABLET PO SCH (10:24)
[2023-01-01] MEDS: MULTIVIT-MINERALS ORAL LIQUID PO SCH (10:39)
[2023-01-01] MEDS: AMINO ACIDS/PROTEIN HYDROLYS 30 ML LIQUID.PKT PO SCH ×2 (10:39→16:31)
[2023-01-01] MEDS ORDERED: PROCHLORPERAZINE INJECTION 10 MG/2 ML VIAL IVPB PRN (14:14)
[2023-01-01] MEDS ORDERED: POTASSIUM CHLORIDE TABS 20 MEQ TABLET.ER (FP) PO ONE (14:40)
[2023-01-01] MEDS: MELATONIN 5 MG TABLETS PO SCH (21:45)
[2023-01-01 22:32] LABS: POTASSIUM 2.9 mmol/L (3.5-5.1)
[2023-01-02] MEDS: KCL 10 MEQ IVPB 10 MEQ/100 ML INFUS.BAG IVPB SCH ×3 (02:04→04:38)
[2023-01-02] MEDS ORDERED: POTASSIUM CHLORIDE TABS 20 MEQ TABLET.ER (FP) PO ONE (02:19)
[2023-01-02] MEDS: ACETAMINOPHEN 1000 MG/100 ML BAG IVPB PRN ×2 (04:38→17:21)
[2023-01-02] MEDS: HEPARIN NA (PORCINE) 5,000 UNITS/ML 1ML VIAL SQ SCH ×2 (06:29→13:28)
[2023-01-02] MEDS: INSULIN SLIDING SCALE (NOVOLOG) 1 VIAL SQ SCH ×3 (06:29→17:05)
[2023-01-02 09:34] LABS: HEMOGLOBIN 7.8 GM/dL (11.7-16.9); MCHC 31.3 g/dl (32.0-35.9); MEAN CELL VOLUME 86.2 fl (80-96); MEAN PLT VOLUME 8.6 fl (7.5-11.1); PLATELET COUNT 188 10^3/uL (134-434); RDW 19.4 % (11.9-15.9)
[2023-01-02 09:57] LABS: POTASSIUM 3.4 mmol/L (3.5-5.1)
[2023-01-02 10:00] LABS: CALCIUM 7.6 mg/dL (8.5-10.1)
[2023-01-02 10:01] LABS: BLOOD UREA NITROGEN 10.8 mg/dL (7-18)
[2023-01-02 10:04] LABS: CREATININE 1.9 mg/dL (0.55-1.3)
[2023-01-02] MEDS: CEFTRIAXONE 1 GM in DEXTROSE 5%-WATER - 50 ML IVPB SCH (10:05)
[2023-01-02] MEDS: POTASSIUM CHLORIDE TABS 20 MEQ TABLET.ER (FP) PO SCH ×2 (10:11→22:01)
[2023-01-02] MEDS: SODIUM BICARBONATE 650 MG TABLET PO SCH ×2 (10:12→22:01)
[2023-01-02] MEDS: METOPROLOL TARTRATE 25 MG TABLET (FP) PO SCH ×2 (10:12→22:03)
[2023-01-02] MEDS: PANTOPRAZOLE 40 MG TABLET PO SCH (10:12)
[2023-01-02] MEDS: FINASTERIDE 5 MG TABLET (FP) PO SCH (10:12)
[2023-01-02] MEDS: ARIPiprazole 10 MG TABLET PO SCH (10:12)
[2023-01-02] MEDS: TAMSULOSIN HCL 0.4 MG CAP PO SCH (10:12)
[2023-01-02] MEDS: FLUoxetine HCL 10 MG CAPSULE PO SCH (10:12)
[2023-01-02] MEDS: AMIODARONE HCL 200 MG TABLET PO SCH (10:12)
[2023-01-02] MEDS: ASCORBIC ACID 500 MG TABLET (FP) PO SCH (10:12)
[2023-01-02] MEDS: AMINO ACIDS/PROTEIN HYDROLYS 30 ML LIQUID.PKT PO SCH ×2 (10:21→17:06)
[2023-01-02] MEDS: MULTIVIT-MINERALS ORAL LIQUID PO SCH (10:21)
[2023-01-02] MEDS: AMINO ACIDS 4.25%/D5W 1,000 ML IV SCH (17:41)
[2023-01-02] MEDS: MELATONIN 5 MG TABLETS PO SCH (22:01)
[2023-01-03] MEDS: ACETAMINOPHEN 1000 MG/100 ML BAG IVPB PRN ×4 (00:11→20:41)
[2023-01-03] MEDS: INSULIN SLIDING SCALE (NOVOLOG) 1 VIAL SQ SCH ×5 (00:13→22:02)
[2023-01-03] MEDS: HEPARIN NA (PORCINE) 5,000 UNITS/ML 1ML VIAL SQ SCH ×4 (00:13→21:50)
[2023-01-03] MEDS: ASCORBIC ACID 500 MG TABLET (FP) PO SCH (11:05)
[2023-01-03] MEDS: TAMSULOSIN HCL 0.4 MG CAP PO SCH (11:05)
[2023-01-03] MEDS: POTASSIUM CHLORIDE TABS 20 MEQ TABLET.ER (FP) PO SCH ×2 (11:05→21:52)
[2023-01-03] MEDS: PANTOPRAZOLE 40 MG TABLET PO SCH (11:05)
[2023-01-03] MEDS: SODIUM BICARBONATE 650 MG TABLET PO SCH ×2 (11:05→21:52)
[2023-01-03] MEDS: METOPROLOL TARTRATE 25 MG TABLET (FP) PO SCH ×2 (11:05→21:52)
[2023-01-03] MEDS: FINASTERIDE 5 MG TABLET (FP) PO SCH (11:05)
[2023-01-03] MEDS: AMINO ACIDS/PROTEIN HYDROLYS 30 ML LIQUID.PKT PO SCH ×2 (11:06→16:54)
[2023-01-03] MEDS: FLUoxetine HCL 10 MG CAPSULE PO SCH (11:07)
[2023-01-03] MEDS: ARIPiprazole 10 MG TABLET PO SCH (11:07)
[2023-01-03] MEDS: MULTIVIT-MINERALS ORAL LIQUID PO SCH (11:07)
[2023-01-03] MEDS: AMIODARONE HCL 200 MG TABLET PO SCH (11:07)
[2023-01-03] MEDS: AMINO ACIDS 4.25%/D5W 1,000 ML IV SCH (16:54)
[2023-01-03] MEDS: MELATONIN 5 MG TABLETS PO SCH (21:52)
[2023-01-04] MEDS: ACETAMINOPHEN 1000 MG/100 ML BAG IVPB PRN ×3 (03:02→21:04)
[2023-01-04] MEDS: HEPARIN NA (PORCINE) 5,000 UNITS/ML 1ML VIAL SQ SCH ×3 (05:42→21:47)
[2023-01-04] MEDS: INSULIN SLIDING SCALE (NOVOLOG) 1 VIAL SQ SCH ×4 (06:05→21:31)
[2023-01-04] MEDS: AMINO ACIDS/PROTEIN HYDROLYS 30 ML LIQUID.PKT PO SCH ×2 (08:02→16:53)
[2023-01-04 10:08] LABS: BASO % 0.5 % (0-2.0); EOS % 5.9 % (0-4.5); HEMATOCRIT 26.2 % (35.4-49); HEMOGLOBIN 8.2 GM/dL (11.7-16.9); LYMPH % 38.7 % (8-40); MCH 27.1 pg (25.7-33.7); MCHC 31.3 g/dl (32.0-35.9); MEAN CELL VOLUME 86.7 fl (80-96); MEAN PLT VOLUME 8.4 fl (7.5-11.1); MONO % 5.4 % (3.8-10.2); NEUT % 49.5 % (42.8-82.8); PLATELET COUNT 166 10^3/uL (134-434); RBC 3.02 M/mm3 (4.00-5.60); RDW 21.7 % (11.9-15.9); WHITE BLOOD COUNT 5.9 K/mm3 (4.0-10.0)
[2023-01-04 10:33] LABS: CHLORIDE 127 mmol/L (98-107); SODIUM 149 mmol/L (136-145)
[2023-01-04 10:36] LABS: CALCIUM 7.9 mg/dL (8.5-10.1)
[2023-01-04 10:37] LABS: BLOOD UREA NITROGEN 9.3 mg/dL (7-18); CO2 16 mmol/L (21-32); GLUCOSE,RANDOM 84 mg/dL (74-106)
[2023-01-04 10:39] LABS: CREATININE 1.8 mg/dL (0.55-1.3)
[2023-01-04 10:42] LABS: ANION GAP 6 MMOL/L (8-16); POTASSIUM 2.9 mmol/L (3.5-5.1)
[2023-01-04] MEDS: POTASSIUM CHLORIDE TABS 20 MEQ TABLET.ER (FP) PO SCH ×2 (10:59→21:45)
[2023-01-04] MEDS: ASCORBIC ACID 500 MG TABLET (FP) PO SCH (11:00)
[2023-01-04] MEDS: TAMSULOSIN HCL 0.4 MG CAP PO SCH (11:00)
[2023-01-04] MEDS: FINASTERIDE 5 MG TABLET (FP) PO SCH (11:00)
[2023-01-04] MEDS: SODIUM BICARBONATE 650 MG TABLET PO SCH ×2 (11:00→21:45)
[2023-01-04] MEDS: PANTOPRAZOLE 40 MG TABLET PO SCH (11:00)
[2023-01-04] MEDS: FLUoxetine HCL 10 MG CAPSULE PO SCH (11:01)
[2023-01-04] MEDS: MULTIVIT-MINERALS ORAL LIQUID PO SCH (11:01)
[2023-01-04] MEDS: ARIPiprazole 10 MG TABLET PO SCH (11:01)
[2023-01-04] MEDS: METOPROLOL TARTRATE 25 MG TABLET (FP) PO SCH ×2 (11:02→21:47)
[2023-01-04] MEDS: AMIODARONE HCL 200 MG TABLET PO SCH (11:04)
[2023-01-04 11:10] LABS: ANISOCYTOSIS 1+; MACROCYTOSIS 1+
[2023-01-04] MEDS ORDERED: POTASSIUM CHLORIDE TABS 20 MEQ TABLET.ER (FP) PO ONE (14:00)
[2023-01-04] MEDS: BANATROL PLUS POWDER PACKET PO SCH ×3 (14:35→21:52)
[2023-01-04] MEDS ORDERED: MAGNESIUM CITRATE 300 ML BOTTLE PO ONE (15:00)
[2023-01-04] MEDS ORDERED: POLYETHYLENE GLYCOL 3350 255 GM BTL PO ONE (16:00)
[2023-01-04] MEDS: AMINO ACIDS 4.25%/D5W 1,000 ML IV SCH (17:55)
[2023-01-04] MEDS ORDERED: BISACODYL 5 MG TABLET.DR (FP) PO ONE (20:00)
[2023-01-04] MEDS: MELATONIN 5 MG TABLETS PO SCH (21:45)
[2023-01-05] MEDS: ACETAMINOPHEN 1000 MG/100 ML BAG IVPB PRN ×2 (05:41→17:43)
[2023-01-05] MEDS: BANATROL PLUS POWDER PACKET PO SCH ×3 (06:04→22:25)
[2023-01-05] MEDS: INSULIN SLIDING SCALE (NOVOLOG) 1 VIAL SQ SCH ×4 (06:04→22:25)
[2023-01-05] MEDS: AMINO ACIDS/PROTEIN HYDROLYS 30 ML LIQUID.PKT PO SCH ×3 (08:30→17:08)
[2023-01-05] MEDS: TAMSULOSIN HCL 0.4 MG CAP PO SCH (08:41)
[2023-01-05 09:16] LABS: BASO % 0.4 % (0-2.0); EOS % 3.7 % (0-4.5); HEMATOCRIT 26.8 % (35.4-49); HEMOGLOBIN 8.5 GM/dL (11.7-16.9); MCH 27.5 pg (25.7-33.7); MCHC 31.8 g/dl (32.0-35.9); MEAN CELL VOLUME 86.5 fl (80-96); MEAN PLT VOLUME 7.8 fl (7.5-11.1); MONO % 5.6 % (3.8-10.2); NEUT % 61.3 % (42.8-82.8); PLATELET COUNT 173 10^3/uL (134-434); RBC 3.09 M/mm3 (4.00-5.60); RDW 23.7 % (11.9-15.9)
[2023-01-05 09:20] LABS: INR 1.09 (0.83-1.09); PROTHROMBIN TIME (PATIENT) 12.6 SEC (9.7-13.0)
[2023-01-05] MEDS: METOPROLOL TARTRATE 25 MG TABLET (FP) PO SCH ×2 (10:06→22:25)
[2023-01-05] MEDS: FINASTERIDE 5 MG TABLET (FP) PO SCH (10:06)
[2023-01-05] MEDS: ARIPiprazole 10 MG TABLET PO SCH (10:06)
[2023-01-05] MEDS: SODIUM BICARBONATE 650 MG TABLET PO SCH ×2 (10:06→22:25)
[2023-01-05] MEDS: POTASSIUM CHLORIDE TABS 20 MEQ TABLET.ER (FP) PO SCH ×2 (10:06→22:25)
[2023-01-05] MEDS: PANTOPRAZOLE 40 MG TABLET PO SCH (10:06)
[2023-01-05] MEDS: ASCORBIC ACID 500 MG TABLET (FP) PO SCH (10:06)
[2023-01-05] MEDS: MULTIVIT-MINERALS ORAL LIQUID PO SCH ×2 (10:07→10:16)
[2023-01-05] MEDS: AMIODARONE HCL 200 MG TABLET PO SCH (10:07)
[2023-01-05] MEDS: FLUoxetine HCL 10 MG CAPSULE PO SCH (10:07)
[2023-01-05 10:57] LABS: CHLORIDE 127 mmol/L (98-107); SODIUM 150 mmol/L (136-145)
[2023-01-05 11:02] LABS: CALCIUM 7.8 mg/dL (8.5-10.1)
[2023-01-05 11:03] LABS: ALBUMIN 1.7 g/dl (3.4-5.0); BLOOD UREA NITROGEN 8.4 mg/dL (7-18); CO2 14 mmol/L (21-32); GLUCOSE,RANDOM 109 mg/dL (74-106)
[2023-01-05 11:06] LABS: CREATININE 1.9 mg/dL (0.55-1.3); SGOT/AST 8 U/L (15-37); SGPT/ALT 14 U/L (13-61)
[2023-01-05 11:07] LABS: BILIRUBIN,TOTAL 0.3 mg/dL (0.2-1)
[2023-01-05 11:08] LABS: TOT PROT 4.4 g/dl (6.4-8.2)
[2023-01-05 11:09] LABS: ALK PHOS 237 U/L (45-117); ANION GAP 9 MMOL/L (8-16); POTASSIUM 2.7 mmol/L (3.5-5.1)
[2023-01-05] MEDS ORDERED: SODIUM CHLORIDE 1,000 ML with POTASSIUM CHLORIDE 20 MEQ IV SCH ×2 (11:15→11:30)
[2023-01-05] MEDS ORDERED: SODIUM CHLORIDE 0.9%/KCL 20 MEQ/1,000 ML INFUS.BAG IV SCH (11:38)
[2023-01-05] MEDS: LACTATED RINGERS SOLUTION 1,000 ML/1,000 ML INFUS.BAG IV SCH (11:39)
[2023-01-05] MEDS: KCL 10 MEQ IVPB 10 MEQ/100 ML INFUS.BAG IVPB SCH ×3 (12:00→15:50)
[2023-01-05 13:14] LABS: ALBUMIN 1.7 g/dl (3.4-5.0); CALCIUM 7.8 mg/dL (8.5-10.1)
[2023-01-05 13:19] LABS: BILIRUBIN,TOTAL 0.2 mg/dL (0.2-1); TOT PROT 4.4 g/dl (6.4-8.2)
[2023-01-05] MEDS: LOPERAMIDE HCL 2 MG CAPSULE PO PRN (16:29)
[2023-01-05] MEDS: AMINO ACIDS 4.25%/D5W 1,000 ML IV SCH (17:08)
[2023-01-05] MEDS: MELATONIN 5 MG TABLETS PO SCH (22:25)
[2023-01-06] MEDS: LOPERAMIDE HCL 2 MG CAPSULE PO PRN ×2 (05:41→16:43)
[2023-01-06] MEDS: HEPARIN NA (PORCINE) 5,000 UNITS/ML 1ML VIAL SQ SCH ×3 (05:41→21:29)
[2023-01-06] MEDS: BANATROL PLUS POWDER PACKET PO SCH ×3 (05:42→21:28)
[2023-01-06] MEDS: INSULIN SLIDING SCALE (NOVOLOG) 1 VIAL SQ SCH ×4 (06:00→21:50)
[2023-01-06] MEDS: ACETAMINOPHEN 1000 MG/100 ML BAG IVPB PRN ×2 (06:04→21:32)
[2023-01-06] MEDS: TAMSULOSIN HCL 0.4 MG CAP PO SCH (08:10)
[2023-01-06] MEDS: AMINO ACIDS/PROTEIN HYDROLYS 30 ML LIQUID.PKT PO SCH ×2 (08:11→17:07)
[2023-01-06 09:17] LABS: HEMATOCRIT 25.7 % (35.4-49); HEMOGLOBIN 8.2 GM/dL (11.7-16.9); MCH 27.6 pg (25.7-33.7); MCHC 31.9 g/dl (32.0-35.9); MEAN CELL VOLUME 86.6 fl (80-96); MEAN PLT VOLUME 7.6 fl (7.5-11.1); PLATELET COUNT 183 10^3/uL (134-434); RBC 2.96 M/mm3 (4.00-5.60); WHITE BLOOD COUNT 6.4 K/mm3 (4.0-10.0)
[2023-01-06 09:43] LABS: CHLORIDE 127 mmol/L (98-107); SODIUM 149 mmol/L (136-145)
[2023-01-06 10:02] LABS: AMYLASE 25 U/L (25-115)
[2023-01-06 10:14] LABS: BLOOD UREA NITROGEN 8.6 mg/dL (7-18); CALCIUM 7.6 mg/dL (8.5-10.1); CO2 13 mmol/L (21-32); GLUCOSE,RANDOM 112 mg/dL (74-106)
[2023-01-06 10:15] LABS: LIPASE 18 U/L (73-393); MAGNESIUM 1.9 mg/dL (1.8-2.4)
[2023-01-06 10:17] LABS: CREATININE 2.1 mg/dL (0.55-1.3); PHOSPHOROUS 3.1 mg/dL (2.5-4.9)
[2023-01-06 10:27] LABS: ANION GAP 8 MMOL/L (8-16); POTASSIUM 2.7 mmol/L (3.5-5.1)
[2023-01-06] MEDS: ASCORBIC ACID 500 MG TABLET (FP) PO SCH (10:33)
[2023-01-06] MEDS: FINASTERIDE 5 MG TABLET (FP) PO SCH (10:33)
[2023-01-06] MEDS: METOPROLOL TARTRATE 25 MG TABLET (FP) PO SCH ×2 (10:33→21:30)
[2023-01-06] MEDS: SODIUM BICARBONATE 650 MG TABLET PO SCH ×2 (10:33→21:30)
[2023-01-06] MEDS: PANTOPRAZOLE 40 MG TABLET PO SCH (10:34)
[2023-01-06] MEDS: POTASSIUM CHLORIDE TABS 20 MEQ TABLET.ER (FP) PO SCH ×2 (10:34→21:30)
[2023-01-06] MEDS: AMIODARONE HCL 200 MG TABLET PO SCH (10:41)
[2023-01-06] MEDS: MULTIVIT-MINERALS ORAL LIQUID PO SCH (10:41)
[2023-01-06] MEDS: ARIPiprazole 10 MG TABLET PO SCH (10:41)
[2023-01-06] MEDS: FLUoxetine HCL 10 MG CAPSULE PO SCH (10:42)
[2023-01-06] MEDS: CHOLESTYRAMINE/ASPARTAME 4 GM PACKET PO SCH ×2 (11:25→11:29)
[2023-01-06] MEDS: LACTATED RINGERS SOLUTION 1,000 ML/1,000 ML INFUS.BAG IV SCH (11:35)
[2023-01-06] MEDS ORDERED: SODIUM CHLORIDE 0.9%/KCL 20 MEQ/1,000 ML INFUS.BAG IV SCH (11:38)
[2023-01-06] MEDS: KCL 10 MEQ IVPB 10 MEQ/100 ML INFUS.BAG IVPB SCH ×6 (11:40→23:31)
[2023-01-06] MEDS: SODIUM CHLORIDE 0.9%/KCL 20 MEQ/1,000 ML INFUS.BAG IV SCH (12:52)
[2023-01-06 16:08] LABS: STOOL OSMO 291 mOsmol/kg (Not Estab.)
[2023-01-06] MEDS ORDERED: INSULIN (NOVOLOG) ASPART 100 UNITS/ML 10ML VIAL ONE (17:01)
[2023-01-06] MEDS: AMINO ACIDS 4.25%/D5W 1,000 ML IV SCH (17:07)
[2023-01-06] MEDS: FAT EMULSION/OLIVE/SOY/PHOSPHO 250 ML IV SCH (21:28)
[2023-01-06] MEDS: MELATONIN 5 MG TABLETS PO SCH (21:29)
[2023-01-06] MEDS ORDERED: FAT EMULSION/OLIVE/SOY (CLINOLIPID) 250 ML EMULSION IV SCH (22:00)
[2023-01-07] MEDS: BANATROL PLUS POWDER PACKET PO SCH ×4 (05:46→21:44)
[2023-01-07] MEDS: INSULIN SLIDING SCALE (NOVOLOG) 1 VIAL SQ SCH ×4 (06:06→22:00)
[2023-01-07] MEDS: ACETAMINOPHEN 1000 MG/100 ML BAG IVPB PRN ×2 (06:48→19:04)
[2023-01-07] MEDS ORDERED: FENTANYL CITRATE/PF 50 MCG/ML VIAL ONE (08:27)
[2023-01-07] MEDS: POTASSIUM CHLORIDE TABS 20 MEQ TABLET.ER (FP) PO SCH ×2 (10:08→21:44)
[2023-01-07] MEDS: TAMSULOSIN HCL 0.4 MG CAP PO SCH (10:09)
[2023-01-07] MEDS: LOPERAMIDE HCL 2 MG CAPSULE PO PRN ×2 (10:09→22:02)
[2023-01-07] MEDS: SODIUM BICARBONATE 650 MG TABLET PO SCH ×2 (10:09→21:44)
[2023-01-07] MEDS: FLUoxetine HCL 10 MG CAPSULE PO SCH (10:10)
[2023-01-07] MEDS: CHOLESTYRAMINE/ASPARTAME 4 GM PACKET PO SCH ×2 (10:10→10:12)
[2023-01-07] MEDS: PANTOPRAZOLE 40 MG TABLET PO SCH (10:11)
[2023-01-07] MEDS: METOPROLOL TARTRATE 25 MG TABLET (FP) PO SCH ×2 (10:11→21:55)
[2023-01-07] MEDS: FINASTERIDE 5 MG TABLET (FP) PO SCH (10:11)
[2023-01-07] MEDS: ASCORBIC ACID 500 MG TABLET (FP) PO SCH (10:11)
[2023-01-07] MEDS: AMINO ACIDS/PROTEIN HYDROLYS 30 ML LIQUID.PKT PO SCH ×2 (10:11→17:15)
[2023-01-07] MEDS: AMIODARONE HCL 200 MG TABLET PO SCH (10:11)
[2023-01-07] MEDS: ARIPiprazole 10 MG TABLET PO SCH (10:11)
[2023-01-07] MEDS: MULTIVIT-MINERALS ORAL LIQUID PO SCH (10:12)
[2023-01-07] MEDS ORDERED: ceFAZolin SODIUM 1 GM VIAL ONE (10:16)
[2023-01-07] MEDS: SODIUM CHLORIDE 0.9%/KCL 20 MEQ/1,000 ML INFUS.BAG IV SCH (13:36)
[2023-01-07 16:48] LABS: HEMATOCRIT 28.8 % (35.4-49); HEMOGLOBIN 9.3 GM/dL (11.7-16.9); MCH 27.9 pg (25.7-33.7); MCHC 32.2 g/dl (32.0-35.9); MEAN CELL VOLUME 86.7 fl (80-96); MEAN PLT VOLUME 7.8 fl (7.5-11.1); PLATELET COUNT 167 10^3/uL (134-434); RBC 3.33 M/mm3 (4.00-5.60); RDW 26.1 % (11.9-15.9); WHITE BLOOD COUNT 4.6 K/mm3 (4.0-10.0)
[2023-01-07 17:03] LABS: CALCIUM 7.9 mg/dL (8.5-10.1); POTASSIUM 3.8 mmol/L (3.5-5.1)
[2023-01-07 17:04] LABS: ALBUMIN 1.8 g/dl (3.4-5.0); BLOOD UREA NITROGEN 7.9 mg/dL (7-18)
[2023-01-07 17:07] LABS: CREATININE 2.2 mg/dL (0.55-1.3)
[2023-01-07 17:09] LABS: BILIRUBIN,TOTAL 0.3 mg/dL (0.2-1); TOT PROT 4.8 g/dl (6.4-8.2)
[2023-01-07 17:10] LABS: ANISOCYTOSIS 2+; MACROCYTOSIS 0; TEAR DROP CELLS 1+
[2023-01-07] MEDS: AMINO ACIDS 4.25%/D5W 1,000 ML IV SCH (17:14)
[2023-01-07 18:11] LABS: GLIADIN ANTIBODY IGA 4 units (0-19); GLIADIN ANTIBODY IGG 2 units (0-19); TRANSGLUTAMINASE IGG 3 U/mL (0-5)
[2023-01-07] MEDS: MELATONIN 5 MG TABLETS PO SCH (21:44)
[2023-01-07] MEDS: FAT EMULSION/OLIVE/SOY/PHOSPHO 250 ML IV SCH (21:45)
[2023-01-07 21:46] LABS: MAGNESIUM 1.8 mg/dL (1.8-2.4)
[2023-01-07 21:48] LABS: PHOSPHOROUS 2.8 mg/dL (2.5-4.9)
[2023-01-08] MEDS: ACETAMINOPHEN 1000 MG/100 ML BAG IVPB PRN ×3 (04:30→18:49)
[2023-01-08] MEDS: HEPARIN NA (PORCINE) 5,000 UNITS/ML 1ML VIAL SQ SCH ×3 (05:17→22:07)
[2023-01-08] MEDS: BANATROL PLUS POWDER PACKET PO SCH ×3 (05:17→22:08)
[2023-01-08] MEDS: INSULIN SLIDING SCALE (NOVOLOG) 1 VIAL SQ SCH ×4 (06:05→22:24)
[2023-01-08] MEDS: LOPERAMIDE HCL 2 MG CAPSULE PO PRN (06:11)
[2023-01-08] MEDS: TAMSULOSIN HCL 0.4 MG CAP PO SCH (08:34)
[2023-01-08] MEDS: AMINO ACIDS/PROTEIN HYDROLYS 30 ML LIQUID.PKT PO SCH ×2 (08:35→18:08)
[2023-01-08] MEDS: POTASSIUM CHLORIDE TABS 20 MEQ TABLET.ER (FP) PO SCH ×2 (09:39→22:07)
[2023-01-08] MEDS: FINASTERIDE 5 MG TABLET (FP) PO SCH (09:39)
[2023-01-08] MEDS: PANTOPRAZOLE 40 MG TABLET PO SCH (09:39)
[2023-01-08] MEDS: ASCORBIC ACID 500 MG TABLET (FP) PO SCH (09:39)
[2023-01-08] MEDS: METOPROLOL TARTRATE 25 MG TABLET (FP) PO SCH ×2 (09:39→22:07)
[2023-01-08] MEDS: SODIUM BICARBONATE 650 MG TABLET PO SCH ×2 (09:39→22:08)
[2023-01-08] MEDS: AMIODARONE HCL 200 MG TABLET PO SCH (09:40)
[2023-01-08] MEDS: ARIPiprazole 10 MG TABLET PO SCH (09:41)
[2023-01-08] MEDS: FLUoxetine HCL 10 MG CAPSULE PO SCH (09:41)
[2023-01-08] MEDS: MULTIVIT-MINERALS ORAL LIQUID PO SCH ×2 (09:41→09:58)
[2023-01-08] MEDS: CHOLESTYRAMINE/ASPARTAME 4 GM PACKET PO SCH ×2 (09:42→09:55)
[2023-01-08] MEDS: AMINO ACIDS 4.25%/D5W 1,000 ML IV SCH ×2 (16:17→16:20)
[2023-01-08] MEDS: SODIUM CHLORIDE 0.9%/KCL 20 MEQ/1,000 ML INFUS.BAG IV SCH (17:49)
[2023-01-08 21:58] LABS: HEMATOCRIT 25.1 % (35.4-49); HEMOGLOBIN 7.9 GM/dL (11.7-16.9); MCH 27.8 pg (25.7-33.7); MCHC 31.5 g/dl (32.0-35.9); MEAN CELL VOLUME 88.4 fl (80-96); MEAN PLT VOLUME 8.5 fl (7.5-11.1); PLATELET COUNT 138 10^3/uL (134-434); RBC 2.84 M/mm3 (4.00-5.60); RDW 25.5 % (11.9-15.9)
[2023-01-08] MEDS: MELATONIN 5 MG TABLETS PO SCH (22:07)
[2023-01-08] MEDS: FAT EMULSION/OLIVE/SOY/PHOSPHO 500 ML IV SCH (22:08)
[2023-01-08 22:23] LABS: POTASSIUM 3.3 mmol/L (3.5-5.1)
[2023-01-08 22:24] LABS: CALCIUM 7.5 mg/dL (8.5-10.1)
[2023-01-08 22:25] LABS: BLOOD UREA NITROGEN 9.5 mg/dL (7-18); MAGNESIUM 1.6 mg/dL (1.8-2.4)
[2023-01-08 22:28] LABS: PHOSPHOROUS 2.5 mg/dL (2.5-4.9)
[2023-01-09] MEDS: BANATROL PLUS POWDER PACKET PO SCH ×3 (05:09→22:07)
[2023-01-09] MEDS: HEPARIN NA (PORCINE) 5,000 UNITS/ML 1ML VIAL SQ SCH ×3 (05:45→22:08)
[2023-01-09] MEDS: AMINO ACIDS/PROTEIN HYDROLYS 30 ML LIQUID.PKT PO SCH ×2 (08:10→17:38)
[2023-01-09] MEDS: TAMSULOSIN HCL 0.4 MG CAP PO SCH (08:15)
[2023-01-09] MEDS: MAGNESIUM SULF 50% (8.12 MEQ/2 ML-1 GM VIAL) IVPB ONE ×3 (08:15→08:29)
[2023-01-09] MEDS: SODIUM BICARBONATE 650 MG TABLET PO SCH ×2 (09:36→22:08)
[2023-01-09] MEDS: PANTOPRAZOLE 40 MG TABLET PO SCH (09:36)
[2023-01-09] MEDS: FINASTERIDE 5 MG TABLET (FP) PO SCH (09:36)
[2023-01-09] MEDS: METOPROLOL TARTRATE 25 MG TABLET (FP) PO SCH ×2 (09:36→22:08)
[2023-01-09] MEDS: ASCORBIC ACID 500 MG TABLET (FP) PO SCH (09:36)
[2023-01-09] MEDS: AMIODARONE HCL 200 MG TABLET PO SCH (09:38)
[2023-01-09] MEDS: FLUoxetine HCL 10 MG CAPSULE PO SCH (09:38)
[2023-01-09] MEDS: ARIPiprazole 10 MG TABLET PO SCH (09:38)
[2023-01-09] MEDS: POTASSIUM CHLORIDE TABS 20 MEQ TABLET.ER (FP) PO SCH ×2 (09:39→22:09)
[2023-01-09] MEDS: POTASSIUM CHLORIDE ORAL LIQUID 20 MEQ/15 ML PO SCH ×2 (09:40→22:08)
[2023-01-09] MEDS: CHOLESTYRAMINE/ASPARTAME 4 GM PACKET PO SCH (09:41)
[2023-01-09] MEDS: MULTIVIT-MINERALS ORAL LIQUID PO SCH (09:42)
[2023-01-09] MEDS: INSULIN SLIDING SCALE (NOVOLOG) 1 VIAL SQ SCH ×4 (13:44→22:25)
[2023-01-09] MEDS: SODIUM CHLORIDE 0.9%/KCL 20 MEQ/1,000 ML INFUS.BAG IV SCH (13:53)
[2023-01-09] MEDS: LOPERAMIDE HCL 2 MG CAPSULE PO PRN (16:05)
[2023-01-09] MEDS: ACETAMINOPHEN 1000 MG/100 ML BAG IVPB PRN (18:58)
[2023-01-09] MEDS: MELATONIN 5 MG TABLETS PO SCH (22:08)
[2023-01-09] MEDS: FAT EMULSION/OLIVE/SOY/PHOSPHO 500 ML IV SCH (22:09)
[2023-01-10] MEDS: ACETAMINOPHEN 1000 MG/100 ML BAG IVPB PRN ×4 (00:51→22:41)
[2023-01-10 04:50] VITALS: RESP 18
[2023-01-10] MEDS: HEPARIN NA (PORCINE) 5,000 UNITS/ML 1ML VIAL SQ SCH ×4 (06:09→21:38)
[2023-01-10] MEDS: BANATROL PLUS POWDER PACKET PO SCH ×3 (06:09→21:32)
[2023-01-10] MEDS: LOPERAMIDE HCL 2 MG CAPSULE PO PRN (06:09)
[2023-01-10] MEDS: INSULIN SLIDING SCALE (NOVOLOG) 1 VIAL SQ SCH ×4 (06:11→21:35)
[2023-01-10] MEDS: TAMSULOSIN HCL 0.4 MG CAP PO SCH (08:42)
[2023-01-10] MEDS: AMINO ACIDS/PROTEIN HYDROLYS 30 ML LIQUID.PKT PO SCH (08:43)
[2023-01-10] MEDS: POTASSIUM CHLORIDE TABS 20 MEQ TABLET.ER (FP) PO SCH ×2 (10:02→21:31)
[2023-01-10] MEDS: CHOLESTYRAMINE/ASPARTAME 4 GM PACKET PO SCH (10:02)
[2023-01-10] MEDS: ASCORBIC ACID 500 MG TABLET (FP) PO SCH (10:02)
[2023-01-10] MEDS: PANTOPRAZOLE 40 MG TABLET PO SCH (10:03)
[2023-01-10] MEDS: SODIUM BICARBONATE 650 MG TABLET PO SCH ×2 (10:04→21:32)
[2023-01-10] MEDS: FINASTERIDE 5 MG TABLET (FP) PO SCH (10:04)
[2023-01-10] MEDS: ARIPiprazole 10 MG TABLET PO SCH (10:04)
[2023-01-10] MEDS: AMIODARONE HCL 200 MG TABLET PO SCH (10:05)
[2023-01-10] MEDS: POTASSIUM CHLORIDE ORAL LIQUID 20 MEQ/15 ML PO SCH ×2 (10:05→21:31)
[2023-01-10] MEDS: FLUoxetine HCL 10 MG CAPSULE PO SCH (10:05)
[2023-01-10] MEDS: METOPROLOL TARTRATE 25 MG TABLET (FP) PO SCH ×2 (10:06→21:32)
[2023-01-10] MEDS: MULTIVIT-MINERALS ORAL LIQUID PO SCH (10:06)
[2023-01-10] MEDS ORDERED: INSULIN (NOVOLOG) ASPART 100 UNITS/ML 10ML VIAL ONE ×3 (10:36→21:18)
[2023-01-10] MEDS: SODIUM CHLORIDE 0.9%/KCL 20 MEQ/1,000 ML INFUS.BAG IV SCH (11:50)
[2023-01-10 15:15] LABS: FATS, NEUTRAL Normal (.)
[2023-01-10 16:37] LABS: HEMATOCRIT 27.1 % (35.4-49); HEMOGLOBIN 8.4 GM/dL (11.7-16.9); MCH 27.6 pg (25.7-33.7); MEAN CELL VOLUME 89.1 fl (80-96); MEAN PLT VOLUME 9.1 fl (7.5-11.1); PLATELET COUNT 158 10^3/uL (134-434); RBC 3.05 M/mm3 (4.00-5.60); RDW 25.5 % (11.9-15.9); WHITE BLOOD COUNT 5.2 K/mm3 (4.0-10.0)
[2023-01-10 17:04] LABS: POTASSIUM 3.8 mmol/L (3.5-5.1)
[2023-01-10 17:06] LABS: BLOOD UREA NITROGEN 9.8 mg/dL (7-18); MAGNESIUM 1.8 mg/dL (1.8-2.4)
[2023-01-10 17:09] LABS: PHOSPHOROUS 2.6 mg/dL (2.5-4.9)
[2023-01-10 20:12] LABS: VITAMIN E (B-GAMMA) 0.6 mg/L (0.5-5.5)
[2023-01-10] MEDS: MELATONIN 5 MG TABLETS PO SCH (21:32)
[2023-01-10] MEDS ORDERED: MAGNESIUM 2GM/50ML STERILE WATER IVPB IVPB ONE (21:47)
[2023-01-10] MEDS: KCL 10 MEQ IVPB 10 MEQ/100 ML INFUS.BAG IVPB SCH (23:06)
[2023-01-11] MEDS: KCL 10 MEQ IVPB 10 MEQ/100 ML INFUS.BAG IVPB SCH (00:11)
[2023-01-11] MEDS ORDERED: MAGNESIUM 2GM/50ML STERILE WATER IVPB IVPB ONE (00:30)
[2023-01-11] MEDS: LOPERAMIDE HCL 2 MG CAPSULE PO PRN (02:03)
[2023-01-11] MEDS: ACETAMINOPHEN 1000 MG/100 ML BAG IVPB PRN (04:47)
[2023-01-11] MEDS: INSULIN SLIDING SCALE (NOVOLOG) 1 VIAL SQ SCH ×2 (06:33→10:40)
[2023-01-11] MEDS: BANATROL PLUS POWDER PACKET PO SCH ×2 (06:33→13:50)
[2023-01-11] MEDS: HEPARIN NA (PORCINE) 5,000 UNITS/ML 1ML VIAL SQ SCH ×2 (06:34→14:55)
[2023-01-11] MEDS: TAMSULOSIN HCL 0.4 MG CAP PO SCH (08:10)
[2023-01-11] MEDS: METOPROLOL TARTRATE 25 MG TABLET (FP) PO SCH (09:10)
[2023-01-11] MEDS: ASCORBIC ACID 500 MG TABLET (FP) PO SCH (09:10)
[2023-01-11] MEDS: FINASTERIDE 5 MG TABLET (FP) PO SCH (09:10)
[2023-01-11] MEDS: SODIUM BICARBONATE 650 MG TABLET PO SCH (09:10)
[2023-01-11] MEDS: POTASSIUM CHLORIDE TABS 20 MEQ TABLET.ER (FP) PO SCH (09:10)
[2023-01-11] MEDS: POTASSIUM CHLORIDE ORAL LIQUID 20 MEQ/15 ML PO SCH (09:11)
[2023-01-11] MEDS: ARIPiprazole 10 MG TABLET PO SCH (09:11)
[2023-01-11] MEDS: AMIODARONE HCL 200 MG TABLET PO SCH (09:11)
[2023-01-11] MEDS: CHOLESTYRAMINE/ASPARTAME 4 GM PACKET PO SCH (09:11)
[2023-01-11] MEDS: FLUoxetine HCL 10 MG CAPSULE PO SCH (09:11)
[2023-01-11] MEDS: MULTIVIT-MINERALS ORAL LIQUID PO SCH (09:11)
[2023-01-11] MEDS: PANTOPRAZOLE 40 MG TABLET PO SCH (09:11)
[2023-01-11 10:14] LABS: POTASSIUM 3.6 mmol/L (3.5-5.1)
[2023-01-11 10:15] LABS: CALCIUM 7.3 mg/dL (8.5-10.1)
[2023-01-11 10:16] LABS: BLOOD UREA NITROGEN 10.2 mg/dL (7-18); MAGNESIUM 2.1 mg/dL (1.8-2.4)
[2023-01-11 10:19] LABS: CREATININE 1.9 mg/dL (0.55-1.3); PHOSPHOROUS 2.9 mg/dL (2.5-4.9)
[2023-01-11] MEDS: SODIUM CHLORIDE 0.9%/KCL 20 MEQ/1,000 ML INFUS.BAG IV SCH (11:50)
[2023-01-11 12:18] VITALS: PULSE 51
[2023-01-11 14:02] VITALS: BP 125/75; TEMP 98.2
== END 2023-01-11 14:45 | DRG 263 ==
LOC: JER 14:17 → JERBED 18:45 → J6S 12-10 01:55
PROVIDERS: ADMIT Internal Medicine; ATTEND Internal Medicine
PROC: 0DNU4ZZ Release Omentum, Percutaneous Endoscopic Approach (ICD-10-PCS; 2022-12-13)
PROC: 0FT44ZZ Resection of Gallbladder, Percutaneous Endoscopic Approach (ICD-10-PCS; principal; 2022-12-13 10:00)
PROC: 30233N1 Transfusion of Nonautologous Red Blood Cells into Peripheral Vein, Percutaneous Approach (ICD-10-PCS; 2022-12-16)
PROC: 0T768DZ Dilation of Right Ureter with Intraluminal Device, Via Natural or Artificial Opening Endoscopic (ICD-10-PCS; 2022-12-28)
PROC: 0TP530Z Removal of Drainage Device from Kidney, Percutaneous Approach (ICD-10-PCS; 2022-12-28)
PROC: 0DBE8ZX Excision of Large Intestine, Via Natural or Artificial Opening Endoscopic, Diagnostic (ICD-10-PCS; 2023-01-05)
PROC: 0DJ08ZZ Inspection of Upper Intestinal Tract, Via Natural or Artificial Opening Endoscopic (ICD-10-PCS; 2023-01-05)
PROC: 0DJ08ZZ Inspection of Upper Intestinal Tract, Via Natural or Artificial Opening Endoscopic (ICD-10-PCS; 2023-01-07)
DX: K80.12 Calculus of gallbladder with acute and chronic cholecystitis without obstruction (principal); E87.0 Hyperosmolality and hypernatremia; J98.59 Other diseases of mediastinum, not elsewhere classified; N17.9 Acute kidney failure, unspecified; K22.2 Esophageal obstruction; N13.30 Unspecified hydronephrosis; E11.43 Type 2 diabetes mellitus with diabetic autonomic (poly)neuropathy; E11.649 Type 2 diabetes mellitus with hypoglycemia without coma; E11.65 Type 2 diabetes mellitus with hyperglycemia; E88.09 Other disorders of plasma-protein metabolism, not elsewhere classified; F20.0 Paranoid schizophrenia; I48.91 Unspecified atrial fibrillation; L89.891 Pressure ulcer of other site, stage 1; L89.892 Pressure ulcer of other site, stage 2; D49.89 Neoplasm of unspecified behavior of other specified sites; D64.9 Anemia, unspecified; E78.5 Hyperlipidemia, unspecified; E87.6 Hypokalemia; F17.210 Nicotine dependence, cigarettes, uncomplicated; N18.9 Chronic kidney disease, unspecified; Z89.512 Acquired absence of left leg below knee; Z89.611 Acquired absence of right leg above knee; N39.0 Urinary tract infection, site not specified; B96.1 Klebsiella pneumoniae [K. pneumoniae] as the cause of diseases classified elsewhere; R31.9 Hematuria, unspecified; R19.7 Diarrhea, unspecified; R30.0 Dysuria; N40.0 Benign prostatic hyperplasia without lower urinary tract symptoms; E83.42 Hypomagnesemia; R33.9 Retention of urine, unspecified; K59.00 Constipation, unspecified; K64.8 Other hemorrhoids
CPT/HCPCS: 0241U-QW; 36415; 36430; 50693; 70450-TC; 71045-TC-FY; 71250-TC; 74018-TC-FY; 74019-TC-FY; 74176-TC; 74220-TC-FY; 76705-TC; 76775-TC; 76856-TC; 80048; 80053; 80061; 81003; 82150; 82272; 82306; 82438; 82533; 82570; 82656; 82705; 82710; 82728; 82784; 82962; 82977; 83516; 83540; 83550; 83605; 83615; 83690; 83735; 83880; 83930; 83935; 84100; 84132; 84133; 84300; 84302; 84443; 84446; 84466; 84590; 84597; 84999; 85025; 85027; 85045; 85610; 85730; 86850; 86900; 86901; 86922; 87040; 87086; 87186; 87205; 87324; 87449; 87635; 88304-TC; 88305-TC; 93005; 93010; 93306-TC; 94760; 99285-25; C1769; C1887; J1644; P9058